=== PATIENT | male | born 1965 | race Caucasian/White ===

== ENCOUNTER 2019-02-20 19:47 | Emergency (ER) | payer BC, OTHER ==
[2019-02-20 20:25] VITALS: RESP 18
[2019-02-20] MEDS ORDERED: AMOXIC-POT CLAV 875MG STARTER 2 EACH TABLET PO STA (20:27)
[2019-02-20] MEDS ORDERED: AMOXIC-POT CLAV 875-125MG 1 EACH TAB PO STA (20:27)
[2019-02-20] MEDS ORDERED: cefTRIAXone 1,000 MG VIAL (IM USE) IM STA (20:37)
[2019-02-20] MEDS ORDERED: FLUTICASONE 50MCG/SPRAY NASAL 16GM EA NOSTRIL PRN (20:37)
--- NOTE | 2019-02-20 20:56 | ED ---
General Adult HPI - General Source: patient, RN notes reviewed, old records reviewed Mode of arrival: ambulatory Limitations: no limitations <Tyler Yañez - Last Filed: 02/21/19 00:54> <Iram Michael - Last Filed: 02/22/19 06:06> - General Chief complaint: Recheck/Abnormal Lab/Rx Stated complaint: Sinus Infection Time Seen by Provider: 02/20/19 20:27 - History of Present Illness Initial comments: 53-year-old male patient past medical history of sarcoidosis presents to ED with chief complaint of significant infection of waxing and waning for 3 months. Patient reports that over the last 3 months he has had describes as ALLERGIES, sinus congestion, maxillary sinus pressure, waxing and waning headaches. Patient states that he has had 2 courses of antibiotics including most recently Augmentin approximately one month ago. Patient states that he has had waxing and waning headaches including currently which she has headache and his right hemisphere behind his right eye. Patient denies worst headache of life. Patient denies thunderclap onset. Patient denies any loss of consciousness. Denies any neck stiffness or neck pain. Denies any chest pain shortness breath or abdominal pain. Systemic: Pt denies fatigue, fever/chills, rash. Pt denies weakness, night sweats, weight loss. Neuro: Pt denies headache, visual disturbances, syncope or pre-syncope. HEENT: Pt denies ocular discharge or irritation, otalgia, rhinorrhea, pharyngitis or notable lymphadenopathy. Cardiopulmonary: Pt denies chest pain, SOB, heart palpitations, dyspnea on exertion. Abdominal/GI: Pt denies abdominal pain, n/v/d. : Pt denies dysuria, burning w/ urination, frequency/urgency. Denies new onset urinary or bowel incontinence. MSK: Pt denies myalgia, loss of strength or function in extremities. Neuro: Pt denies new onset weakness, paresthesias. (Tyler Yañez) - Related Data Previous Rx's Medication Instructions Recorded Doxycycline [Vibramycin] 100 mg PO BID #7 cap 02/20/19 Allergies Allergy/AdvReac Type Severity Reaction Status Date / Time aspirin Allergy Rash/Hives Verified 02/20/19 20:25 Review of Systems ROS Other: All systems not noted in ROS Statement are negative. <Tyler Yañez - Last Filed: 02/21/19 00:54> ROS Other: All systems not noted in ROS Statement are negative. <Iram Michael Nuria - Last Filed: 02/22/19 06:06> ROS Statement: Those systems with pertinent positive or pertinent negative responses have been documented in the HPI. Past Medical History Additional Past Medical History / Comment(s): sacroidosis History of Any Multi-Drug Resistant Organisms: None Reported Additional Past Surgical History / Comment(s): lung biopsy Past Psychological History: No Psychological Hx Reported Smoking Status: Never smoker Past Alcohol Use History: Occasional Past Drug Use History: None Reported <Tyler Yañez - Last Filed: 02/21/19 00:54> General Exam Limitations: no limitations <Tyler Yañez - Last Filed: 02/21/19 00:54> - General Exam Comments Initial Comments: Constitutional: NAD, AOX3, Pt has pleasant affect. HEENT: NC/AT, trachea midline, neck supple, no lymphadenopathy. Posterior pharynx non erythematous, without exudates. External ears appear normal, without discharge. TM pale bauer bilaterally. Mucous membranes moist. Eyes PERRLA, EOM intact. There is no scleral icterus. No pallor noted. Reproducible sinus pressure maxillary. Cardiopulmonary: RRR, no murmurs, rubs or gallops, no JVD noted. Lungs CTAB in anterior and posterior caballero. No peripheral edema. Abdominal exam: Abdomen soft and non-distended. Abdomen non-tender to palpation in all 4 quadrants. Bowel sounds active in LLQ. No hepatosplenomegaly. No ecchymosis Neuro: CN II-XII intact. No nuchal rigidity. No raccon eyes, no mccormack sign, no hemotympanum. No cervical spinal tenderness. MSK: No posterior calf tenderness bilaterally, homans sign negative bilaterally. Posterior tibialis and radial pulse +2 bilaterally. Sensation intact in upper and lower extremities. Full active ROM in upper and lower extremities, 5/5 stregnth. (Tyler Yañez) Course Vital Signs 02/20/19 02/20/19 20:22 22:13 Temperature 100.8 F H 99.0 F Pulse Rate 97 89 Respiratory 18 18 Rate Blood Pressure 122/80 139/82 O2 Sat by Pulse 97 100 Oximetry Medical Decision Making <Tyler Yañez - Last Filed: 02/21/19 00:54> <Iram Michael - Last Filed: 02/22/19 06:06> - Medical Decision Making 53-year-old male patient past medical history of sarcoidosis presents to ED with chief complaint of significant infection of waxing and waning for 3 months. Patient reports that over the last 3 months he has had describes as ALLERGIES, sinus congestion, maxillary sinus pressure, waxing and waning headaches. Patient states that he has had 2 courses of antibiotics including most recently Augmentin approximately one month ago. Patient states that he has had waxing and waning headaches including currently which she has headache and his right hemisphere behind his right eye. Patient denies worst headache of life. Patient denies thunderclap onset. Patient denies any loss of consciousness. Denies any neck stiffness or neck pain. Denies any chest pain shortness breath or abdominal pain. Patient also has additionally displayed fever 100.8. Patient administered antipyretic. Vital signs stable at discharge. Physical exam displayed: Reproducible sinus pressure maxillary. CT facial bones displayed mild chronic paranasal sinus disease involving the bilateral ethmoid air cells as well as the right-sided frontal maxillary sinuses. CT brain did not acute process. Patient placed on doxycycline. As well as Flonase. Patient also has joint gram ceftriaxone ED. Patient discharged with outpatient follow- up with ENT tomorrow. Patient returned ER physician or symptoms. Case discussed with Dr. Michael. (Tyler Yañez) I was available for consultation in the emergency department. The history and physical exam were done by the midlevel provider. I was consulted for this patient's care. I reviewed the case with the midlevel provider and based on their presentation of the patient, I agree with the assessment, medical decision making and plan of care as documented. Chart was dictated using [employer] dictation software. Attempts were made to correct any dictation errors however some typographical errors may persist. (Iram Michael) Disposition Is patient prescribed a controlled substance at d/c from ED?: No <Tyler Yañez - Last Filed: 02/21/19 00:54> <Iram Michael - Last Filed: 02/22/19 06:06> Clinical Impression: Sinusitis Disposition: HOME SELF-CARE Condition: Stable Instructions (If sedation given, give patient instructions): Sinusitis (ED) Additional Instructions: Patient to adhere to previously discussed treatment plan and will take medication(s) as directed. Patient to follow up with PCP in 1-2 days. Patient to return to ED if symptoms do not improve. Follow-up with primary care provider and ENT in 1-2 days. Return to ER if condition worsens. Prescriptions: Doxycycline [Vibramycin] 100 mg PO BID #7 cap Referrals: None,Stated [Primary Care Provider] - 1-2 days Anival Taylor MD [STAFF PHYSICIAN] - 1-2 days
--- NOTE | 2019-02-20 21:47 | CT ---
EXAMINATION TYPE: CT brain wo con DATE OF EXAM: 02/20/2019 COMPARISON: None HISTORY: 53-year-old male with pain TECHNIQUE: Examination was done in axial plane without intravenous contrast. Coronal and sagittal r econstructions performed. CT DLP: 1156.6 mGycm Automated exposure control for dose reduction was used. FINDINGS: There is no evidence of acute intracranial hemorrhage, acute ischemic changes, mass, mass-effect, or extra-axial fluid collection. There is no effacement of cerebral sulci or basal subarachnoid cister ns. There is no hydrocephalus. There is no midline shift. Lund-white matter distinction is preserv ed. Mastoid air cells well pneumatized. Facial bones reported separately. IMPRESSION: No acute intracranial abnormality seen. Facial bones reported separately.
--- NOTE | 2019-02-20 21:49 | CT ---
EXAMINATION TYPE: CT facial bones wo con DATE OF EXAM: 02/20/2019 COMPARISON: None HISTORY: 53-year-old male with pain, sinus infection for months TECHNIQUE: Contiguous axial scanning of the facial bones without IV contrast. Coronal reconstructions performed. CT DLP: 1156.6 mGycm Automated exposure control for dose reduction was used. FINDINGS: Rightward nasal septal deviation. Scattered mild mucosal thickening right frontal sinus and ethmoid a ir cells. Also along the roof of the right maxillary sinus. Osteomeatal complexes are patent. No air-fluid levels. Orbits and globes appear intact. No acute facial bone fracture seen. IMPRESSION: MILD CHRONIC PARANASAL SINUS DISEASE INVOLVING THE BILATERAL ETHMOID AIR CELLS WELL THE RIGHT-S IDED FRONTAL AND MAXILLARY SINUSES.
[2019-02-20] MEDS ORDERED: ACETAMINOPHEN TAB 325 MG TAB PO STA (21:51)
[2019-02-20] MEDS ORDERED: DOXYCYCLINE 100 MG CAP PO STA (21:51)
[2019-02-20 22:14] VITALS: BP 139/82; PULSE 89; TEMP 99
== END 2019-02-20 22:13 | disposition home or self-care (01) ==
LOC: EC 19:47
DX: J32.9 Chronic sinusitis, unspecified (principal); Z88.6 Allergy status to analgesic agent
CPT/HCPCS: 70486; 70450; 99284; 96372; J0696

== ENCOUNTER 2020-07-05 09:26 | Inpatient (IN) | payer BC ==
[2020-07-05] MEDS ORDERED: ALBUTEROL HFA INHALER INHALATION STA (09:49)
[2020-07-05] MEDS ORDERED: ACETAMINOPHEN TAB 500 MG TAB PO STA (09:49)
--- NOTE | 2020-07-05 09:52 | ED ---
General Adult HPI - General Chief complaint: Shortness of Breath Stated complaint: Cough, SOB, possible covid Time Seen by Provider: 07/05/20 09:30 Source: patient, EMS, RN notes reviewed, old records reviewed Mode of arrival: EMS Limitations: no limitations - History of Present Illness Initial comments: This is a 55-year-old male who presents emergency Department complaining that he has had a fever for 10 days. Patient states she had "test last week but no one is got Bactrim on the results. Patient states she has had a cough and he has been very short of breath. Patient states he continues to spike a fever. Patient states his symptoms have persisted or shortness of breath is gotten worse. Patient denies any chest pain or palpitations. Patient denies any headache. Patient denies any numbness or weakness. Patient denies any vomiting or diarrhea. Patient states he just overall feels much more tired. - Related Data Home Medications Medication Instructions Recorded Confirmed No Known Home Medications 07/05/20 07/05/20 Allergies Allergy/AdvReac Type Severity Reaction Status Date / Time aspirin Allergy Rash/Hives Verified 07/05/20 10:00 Review of Systems ROS Statement: Those systems with pertinent positive or pertinent negative responses have been documented in the HPI. ROS Other: All systems not noted in ROS Statement are negative. Past Medical History Additional Past Medical History / Comment(s): sacroidosis History of Any Multi-Drug Resistant Organisms: None Reported Additional Past Surgical History / Comment(s): lung biopsy Past Psychological History: No Psychological Hx Reported Smoking Status: Current some day smoker Past Alcohol Use History: Occasional Past Drug Use History: None Reported General Exam - General Exam Comments Initial Comments: GENERAL: Patient is well-developed and well-nourished. Patient is nontoxic and well- hydrated and is in mild distress. ENT: Neck is soft and supple. No significant lymphadenopathy is noted. Oropharynx is clear. Moist mucous membranes. Neck has full range of motion without eliciting any pain. EYES: The sclera were anicteric and conjunctiva were pink and moist. Extraocular movements were intact and pupils were equal round and reactive to light. Eyelids were unremarkable. PULMONARY: Unlabored respirations. Good breath sounds bilaterally. Patient has crackles bilaterally worse on the left than the right. Patient's pulse ox was 84 on room air. CARDIOVASCULAR: There is a regular rate and rhythm without any murmurs gallops or rubs. ABDOMEN: Soft and nontender with normal bowel sounds. SKIN: Skin is clear with no lesions or rashes and otherwise unremarkable. NEUROLOGIC: Patient is alert and oriented x3. Cranial nerves II through XII are grossly intact. Motor and sensory are also intact. Normal speech, volume and content. Symmetrical smile. MUSCULOSKELETAL: Normal extremities with adequate strength and full range of motion. LYMPHATICS: No significant lymphadenopathy is noted PSYCHIATRIC: Normal psychiatric evaluation. Limitations: no limitations Course Vital Signs 07/05/20 07/05/20 09:32 09:37 Temperature 102.9 F H Pulse Rate 84 Respiratory 18 20 Rate Blood Pressure 133/71 O2 Sat by Pulse 96 Oximetry Medical Decision Making - Medical Decision Making EKG shows normal sinus rhythm at 90 bpm HI interval 130 QRS is 84 Q-T intervals 356 QTC is 435. Patient's EKG shows no ST segment depression or depression. Patient does have Q waves in leads 3 and aVF. Chest shows an infiltrative pattern consistent with COVID. Patient does help COVID positive test. - Lab Data Result diagrams: 07/05/20 10:05 07/05/20 10:05 Lab Results 07/05/20 07/05/20 07/05/20 Range/Units 10:05 10:05 10:05 WBC 5.1 (3.8-10.6) k/uL RBC 5.04 (4.30-5.90) m/uL Hgb 15.4 (13.0-17.5) gm/dL Hct 43.7 (39.0-53.0) % MCV 86.8 (80.0-100.0) fL MCH 30.6 (25.0-35.0) pg MCHC 35.3 (31.0-37.0) g/dL RDW 11.9 (11.5-15.5) % Plt Count 212 (150-450) k/uL MPV 7.0 Neutrophils % 81 % Lymphocytes % 9 % Monocytes % 6 % Eosinophils % 1 % Basophils % 2 % Neutrophils # 4.1 (1.3-7.7) k/uL Lymphocytes # 0.5 L (1.0-4.8) k/uL Monocytes # 0.3 (0-1.0) k/uL Eosinophils # 0.1 (0-0.7) k/uL Basophils # 0.1 (0-0.2) k/uL Manual Slide Review Performed RBC Morphology Normal Sodium 132 L (137-145) mmol/L Potassium 3.9 (3.5-5.1) mmol/L Chloride 98 (98-107) mmol/L Carbon Dioxide 23 (22-30) mmol/L Anion Gap 11 mmol/L BUN 16 (9-20) mg/dL Creatinine 0.93 (0.66-1.25) mg/dL Est GFR (CKD-EPI)AfAm >90 (>60 ml/min/1.73 sqM) Est GFR (CKD-EPI)NonAf >90 (>60 ml/min/1.73 sqM) Glucose 120 H (74-99) mg/dL Plasma Lactic Acid Wilder 1.7 (0.7-2.0) mmol/L Calcium 8.8 (8.4-10.2) mg/dL Magnesium 2.0 (1.6-2.3) mg/dL Total Bilirubin 0.5 (0.2-1.3) mg/dL AST 51 (17-59) U/L ALT 45 (4-49) U/L Alkaline Phosphatase 55 (38-126) U/L Lactate Dehydrogenase 1018 H (313-618) U/L C-Reactive Protein 63.2 H (<10.0) mg/L Total Protein 7.0 (6.3-8.2) g/dL Albumin 4.1 (3.5-5.0) g/dL Coronavirus (PCR) (Not Detectd) 07/05/20 Range/Units 10:05 WBC (3.8-10.6) k/uL RBC (4.30-5.90) m/uL Hgb (13.0-17.5) gm/dL Hct (39.0-53.0) % MCV (80.0-100.0) fL MCH (25.0-35.0) pg MCHC (31.0-37.0) g/dL RDW (11.5-15.5) % Plt Count (150-450) k/uL MPV Neutrophils % % Lymphocytes % % Monocytes % % Eosinophils % % Basophils % % Neutrophils # (1.3-7.7) k/uL Lymphocytes # (1.0-4.8) k/uL Monocytes # (0-1.0) k/uL Eosinophils # (0-0.7) k/uL Basophils # (0-0.2) k/uL Manual Slide Review RBC Morphology Sodium (137-145) mmol/L Potassium (3.5-5.1) mmol/L Chloride (98-107) mmol/L Carbon Dioxide (22-30) mmol/L Anion Gap mmol/L BUN (9-20) mg/dL Creatinine (0.66-1.25) mg/dL Est GFR (CKD-EPI)AfAm (>60 ml/min/1.73 sqM) Est GFR (CKD-EPI)NonAf (>60 ml/min/1.73 sqM) Glucose (74-99) mg/dL Plasma Lactic Acid Wilder (0.7-2.0) mmol/L Calcium (8.4-10.2) mg/dL Magnesium (1.6-2.3) mg/dL Total Bilirubin (0.2-1.3) mg/dL AST (17-59) U/L ALT (4-49) U/L Alkaline Phosphatase (38-126) U/L Lactate Dehydrogenase (313-618) U/L C-Reactive Protein (<10.0) mg/L Total Protein (6.3-8.2) g/dL Albumin (3.5-5.0) g/dL Coronavirus (PCR) Detected A (Not Detectd) Disposition Clinical Impression: Pneumonia due to COVID-19 virus Disposition: ADMITTED IP TO THIS [facility] Time of Disposition: 10:50
[2020-07-05 10:19] LABS: Basophils # (A) 0.1 k/uL (0-0.2); Basophils % (A) 2 %; Eosinophils # (A) 0.1 k/uL (0-0.7); Eosinophils % (A) 1 %; HCT 43.7 % (39.0-53.0); HGB 15.4 gm/dL (13.0-17.5); Lymphocytes # (A) 0.5 k/uL (1.0-4.8); Lymphocytes % (A) 9 %; MCH 30.6 pg (25.0-35.0); MCHC 35.3 g/dL (31.0-37.0); MCV 86.8 fL (80.0-100.0); Monocytes # (A) 0.3 k/uL (0-1.0); Monocytes % (A) 6 %; Neutrophils # (A) 4.1 k/uL (1.3-7.7); Neutrophils % (A) 81 %; Platelet Count 212 k/uL (150-450); RBC 5.04 m/uL (4.30-5.90); RDW 11.9 % (11.5-15.5); WBC 5.1 k/uL (3.8-10.6)
--- NOTE | 2020-07-05 10:29 | XR ---
EXAMINATION TYPE: XR chest 1V portable DATE OF EXAM: 07/05/2020 COMPARISON: NONE HISTORY: Fever and cough. Suspected covid 19 pneumonia. TECHNIQUE: Single AP portable frontal upright view of the chest is obtained. FINDINGS: There is low lung volumes with slightly elevated right hemidiaphragm. There is right uppe r and basilar opacities. There is left mid to lower lung opacities greater in the periphery. No pleur al effusion or pneumothorax seen bilaterally. The cardiac silhouette size is upper limits of normal i n size. The osseous structures are intact. IMPRESSION: Low lung volumes with bilateral multifocal acute infiltrates correlates with clinical ballesteros spicion for covid-19 infection.
[2020-07-05 10:35] LABS: Potassium 3.9 mmol/L (3.5-5.1)
[2020-07-05 10:38] LABS: ALT 45 U/L (4-49); AST 51 U/L (17-59); African American GFR (CKD) >90 (>60 ml/min/1.73 sqM); Albumin 4.1 g/dL (3.5-5.0); Alkaline Phosphatase 55 U/L (38-126); Anion Gap 11 mmol/L; Blood Urea Nitrogen 16 mg/dL (9-20); C Reactive Protein 63.2 mg/L (<10.0); Calcium 8.8 mg/dL (8.4-10.2); Carbon Dioxide 23 mmol/L (22-30); Chloride 98 mmol/L (98-107); Glucose 120 mg/dL (74-99); LDH 1018 U/L (313-618); Non-African American GFR(CKD) >90 (>60 ml/min/1.73 sqM); Sodium 132 mmol/L (137-145); Total Bilirubin 0.5 mg/dL (0.2-1.3)
[2020-07-05 10:43] LABS: D-Dimer 1.14 mg/L FEU (<0.60); Partial Thromboplastin Time 25.8 sec (22.0-30.0); Prothrombin Time 9.9 sec (9.0-12.0)
[2020-07-05] MEDS ORDERED: SODIUM CHLORIDE 0.9% 1,000 ML IV ONE (10:51)
[2020-07-05] MEDS ORDERED: dexAMETHasone 4 MG TAB PO STA (10:52)
--- NOTE | 2020-07-05 14:35 | P.HPIM ---
History of Present Illness This is a pleasant 55 years old male with past medical history of sarcoidosis who presents because of 10 days history of fever. Associated with cough and dyspnea. Denies chest pain, no headache. no diarrhea, no urinary complaint No headache or weakness or numbness. he's been febrile at 102.9 here in the emergency room He is saturating 96% on 10 L oxygen via nonrebreather. Lap showing mild for moises 0.5K asked of CBC is unremarkable, d-dimer is slightly elevated at 1.1, sodium 132, and potassium was normal 3.9, creatinine normal 0.9, as per lactic acid is 1.7. Magnesium is 2.0, liver enzymes AST and ALT not elevated at 151 and 45 respectively. Elevated lactate dehydrogenase at 1018 and C-reactive protein at 63.2. covid is in the emergency room patient was given dexamethasone one-time dose and normal saline at 75 L/h detected in his nasal swab EKG showed normal sinus rhythm at 90 bpm, no significant ST T changes, QTC 435 Chest x-ray reviewed by myself showing bilateral his anus and infiltrates, reports patient has bilateral multifocal acute infiltrates correlates with the clinical suspicious for Covid 19 infection Review of Systems CONSTITUTIONAL: No fever, no malaise, no fatigue. HEENT: No recent visual problems or hearing problems. Denied any sore throat. CARDIOVASCULAR: No orthopnea, PND, no palpitations, no syncope. -PULMONARY: As above GASTROINTESTINAL: No diarrhea, no nausea, no vomiting, no abdominal pain. Normoactive bowel sounds. NEUROLOGICAL: No headaches, no weakness, no numbness. HEMATOLOGICAL: Denies any bleeding or petechiae. GENITOURINARY: Denies any burning micturition, frequency, or urgency. MUSCULOSKELETAL/RHEUMATOLOGICAL: Denies any joint pain, swelling, or any muscle pain. ENDOCRINE: Denies any polyuria or polydipsia. Past Medical History Additional Past Medical History / Comment(s): sacroidosis History of Any Multi-Drug Resistant Organisms: None Reported Additional Past Surgical History / Comment(s): lung biopsy Past Psychological History: No Psychological Hx Reported Smoking Status: Never smoker Past Alcohol Use History: Occasional Past Drug Use History: None Reported - Past Family History Father Family Medical History: Cancer Medications and Allergies Home Medications Medication Instructions Recorded Confirmed Type No Known Home Medications 07/05/20 07/05/20 History Allergies Allergy/AdvReac Type Severity Reaction Status Date / Time aspirin Allergy Rash/Hives Verified 07/05/20 10:00 Physical Exam Vitals: Vital Signs Temp Pulse Pulse Resp BP BP Pulse Ox 07/05/20 13:28 100.5 F H 73 16 127/74 94 L 07/05/20 11:32 99.2 F 84 20 133/71 96 07/05/20 11:00 99.2 F 84 20 133/71 96 07/05/20 10:36 18 95 07/05/20 09:37 20 07/05/20 09:32 102.9 F H 84 18 133/71 96 Intake and Output 07/04/20 07/05/20 07/05/20 22:59 06:59 14:59 Other: Weight 99.79 kg GENERAL: The patient is alert and oriented x3, not in any acute distress. Well developed, well nourished. HEENT: Pupils are round and equally reacting to light. EOMI. No scleral icterus. No conjunctival pallor. Normocephalic, atraumatic. No pharyngeal erythema. No thyromegaly. CARDIOVASCULAR: S1 and S2 present. No murmurs, rubs, or gallops. -PULMONARY: Chest is clear to auscultation, b/l crepitation ABDOMEN: Soft, nontender, nondistended, normoactive bowel sounds. No palpable organomegaly. MUSCULOSKELETAL: No joint swelling or deformity. EXTREMITIES: No cyanosis, clubbing, or pedal edema. NEUROLOGICAL: Gross neurological examination did not reveal any focal deficits. SKIN: No rashes. No petechiae Results CBC & Chem 7: 07/05/20 10:05 07/05/20 10:05 Labs: Abnormal Lab Results - Last 24 Hours (Table) 07/05/20 07/05/20 07/05/20 Range/Units 10:05 10:05 10:05 Lymphocytes # 0.5 L (1.0-4.8) k/uL D-Dimer 1.14 H (<0.60) mg/L FEU Sodium 132 L (137-145) mmol/L Glucose 120 H (74-99) mg/dL Lactate Dehydrogenase 1018 H (313-618) U/L C-Reactive Protein 63.2 H (<10.0) mg/L Coronavirus (PCR) (Not Detectd) 07/05/20 Range/Units 10:05 Lymphocytes # (1.0-4.8) k/uL D-Dimer (<0.60) mg/L FEU Sodium (137-145) mmol/L Glucose (74-99) mg/dL Lactate Dehydrogenase (313-618) U/L C-Reactive Protein (<10.0) mg/L Coronavirus (PCR) Detected A (Not Detectd) Thrombosis Risk Factor Assmnt - Choose All That Apply Each Factor Represents 1 point: Age 41-60 years, Serious lung disease incl. pneumonia (< 1month) Thrombosis Risk Factor Assessment Total Risk Factor Score: 2 Thrombosis Risk Factor Assessment Level: Low Risk Assessment and Plan Assessment: Bilateral Covid pneumonia Acute hypoxic respiratory failure Increased inflammatory markers History of sarcoidosis Plan: This is a pleasant 55 years old male who presents with Covid pneumonia. Continue with oxygen, continue with dexamethasone, vitamin C and zinc sulfate. I will discontinue the IV fluid Labs and medication were reviewed.. Continue same treatment. Continue with symptomatic treatment. Resume home medication. Monitor lytes and vitals. DVT and GI prophylaxis. Further recommendations depends on the clinical course of the patient DVT prophylaxis: Subcutaneous Lovenox GI Prophylaxis: Protonix Prognosis is guarded
[2020-07-05] MEDS ORDERED: REMDESIVIR (EUA) 200 MG in SODIUM CHLORIDE 0.9% 250 ML IVPB ONE (17:00)
[2020-07-05] MEDS: ENOXAPARIN 40 MG/0.4 ML SYRINGE SQ SCH (17:24)
--- NOTE | 2020-07-05 18:19 | CONS ---
CONSULTATION PULMONARY/CRITICAL CARE CONSULTATION: REASON FOR CONSULTATION: COVID-19 pneumonia. This is a 55-year-old gentleman who is relatively healthy. He states he has not been feeling well for about a week to 10 days. He went to his doctor out in [place]. I believe it was Dr. Wan. He apparently requested a COVID test and results are not yet back. Anyway, he comes in with complaints of cough, chest congestion, fever, and shortness of breath. His symptoms have gotten worse. His temperature was up to 105 degrees he says. Denies any nausea, vomiting or diarrhea. Denies any abdominal pain. Denies any genitourinary complaints. He is having typical muscle aches and joint aches. HOME MEDICATIONS: None. ALLERGIES: ASPIRIN. MEDICAL HISTORY: Positive for inactive or quiescent sarcoidosis. SURGICAL HISTORY: Positive for previous lung biopsy and a diagnosis of sarcoid. SOCIAL HISTORY: Negative tobacco use. He does drink occasionally. Denies any illicit drug use. FAMILY HISTORY: Noncontributory. REVIEW OF SYSTEMS: CONSTITUTIONAL: Fever, muscle aches, joint aches. NEUROLOGIC: Negative. HEENT: Negative. CARDIOVASCULAR: Negative. PULMONARY: Shortness of breath, chest congestion, cough. GI: Negative. : Negative. RHEUMATOLOGIC: Negative. IMMUNOLOGIC: Negative. ENDOCRINOLOGIC: Negative. DERMATOLOGIC: Negative. PHYSICAL EXAMINATION: VITAL SIGNS: Current vital signs are reviewed. Temperature is 100.5, heart rate 73, respiratory rate 16, blood pressure 127/74, mean 91, and saturations are 94% on a non- rebreather mask. Appears mildly tachypneic. HEENT: Examination is grossly unremarkable. Non-rebreather mask in place. NECK: Supple, full range of motion. No adenopathy. Neck veins are flat. CARDIOVASCULAR: Examination reveals regular rhythm and rate. Heart rate 73. S1, S2 normal. No S3, S4, or murmur. LUNGS: Reveal coarse rhonchi. ABDOMEN: Soft. EXTREMITIES: Intact. No cyanosis, clubbing, or edema noted. SKIN: Without rash. NEUROLOGIC: Examination is nonfocal. LABS: Reviewed. White count 5.1, hemoglobin 15.4, hematocrit 43.7, platelet count normal, PT/INR normal, PTT 25.8. D-dimer 1.14. Sodium 132, potassium 3.9, chloride 98, CO2 of 13. Anion gap is 11. BUN and creatinine were 16 and 0.93, glucose 120, ferritin 3732, LDH 1018, and C-reactive protein 63.2. COVID test was positive by PCR. IMAGING: Chest x-ray shows diffuse bilateral infiltrates. CURRENT MEDICATIONS: Reviewed. He is currently on vitamin C, Decadron, Lovenox, Protonix, Remdesivir started today, and zinc. ASSESSMENT: 1. COVID-19 pneumonia/pneumonitis. 2. Hypoxemia secondary to #1. 3. Inactive or quiescent sarcoidosis. PLAN: The patient will be started on Remdesivir. In addition, he is currently on Decadron. He will get vitamin C, albuterol inhaler, as well as zinc and vitamin D3. We will start him on melatonin and Pepcid as well. No additional recommendations are made. Prognosis is guarded. MMODL / IJN: [id number] /
[2020-07-05] MEDS: ZINC SULFATE 220 MG CAP PO SCH (19:03)
[2020-07-05] MEDS: MELATONIN 5 MG TABLET PO SCH (20:14)
[2020-07-05] MEDS: ASCORBIC ACID 500 MG TAB PO SCH (20:14)
[2020-07-05] MEDS: ACETAMINOPHEN TAB 325 MG TAB PO PRN (20:14)
[2020-07-05] MEDS: ALBUTEROL HFA INHALER INHALATION SCH (20:29)
[2020-07-05] MEDS ORDERED: dexAMETHasone 4 MG TAB PO SCH (21:00)
[2020-07-06] MEDS ORDERED: PANTOPRAZOLE 40 MG/10 ML VIAL IVP SCH (09:00)
[2020-07-06] MEDS: ASCORBIC ACID 500 MG TAB PO SCH ×2 (09:03→21:50)
[2020-07-06] MEDS: ENOXAPARIN 40 MG/0.4 ML SYRINGE SQ SCH (09:03)
[2020-07-06] MEDS: CHOLECALCIFEROL 400 UNIT TAB PO SCH (09:03)
[2020-07-06] MEDS: dexAMETHasone 2 MG TAB PO SCH (09:03)
[2020-07-06] MEDS: ZINC SULFATE 220 MG CAP PO SCH (09:04)
[2020-07-06] MEDS: ALBUTEROL HFA INHALER INHALATION SCH ×4 (09:05→20:40)
[2020-07-06] MEDS: ACETAMINOPHEN TAB 325 MG TAB PO PRN (09:13)
--- NOTE | 2020-07-06 12:48 | P.PN ---
Subjective patient is a pleasant 55-year-old the male admitted for with 19 pneumonia and respiratory failure secondary to cord 90 pneumonia and patient is presently on3 L of oxygen saturating at 91% patient feels marginally better patient still has fevers and elevated the inflammatory markers. Constitutional: Denied any fatigue denied any fever. Cardio vascular: denied any chest pain, palpitations Gastrointestinal denied any nausea vomiting Pulmonary: short of breath he believes it may be a bit better today Neurologic denied any new focal deficits All inpatient medications were reviewed and appropriate changes in these medications as dictated in the interval history and assessment and plan. Objective - Vital Signs Vital signs: Vital Signs Temp 100.1 F H 07/06/20 08:00 Pulse 86 07/06/20 08:00 Resp 18 07/06/20 03:11 BP 121/69 07/06/20 08:00 Pulse Ox 91 L 07/06/20 09:07 Intake & Output 07/05/20 07/06/20 07/06/20 18:59 06:59 18:59 Intake Total 400 120 Balance 400 120 Weight 99.79 kg 98.7 kg Intake: Intake, IV Titration 400 Amount Remdesivir (Eua) 200 mg 250 In Sodium Chloride 0.9% 250 ml @ 250 mls/hr IVPB ONCE ONE Rx#:[id number] Sodium Chloride 0.9% 1, 150 000 ml @ 75 mls/hr IV . [id number] ONE Rx#:[id number] Oral 120 Other: # Voids 1 - Exam PHYSICAL EXAMINATION: GENERAL: The patient is alert and oriented x3, not in any acute distress. Well developed, well nourished. HEENT: Pupils are round and equally reacting to light. EOMI. No scleral icterus. No conjunctival pallor. Normocephalic, atraumatic. No pharyngeal erythema. No thyromegaly. CARDIOVASCULAR: S1 and S2 present. No murmurs, rubs, or gallops. PULMONARY: Chest is clear to auscultation, no wheezing or crackles. ABDOMEN: Soft, nontender, nondistended, normoactive bowel sounds. No palpable organomegaly. MUSCULOSKELETAL: No joint swelling or deformity. EXTREMITIES: No cyanosis, clubbing, or pedal edema. NEUROLOGICAL: Gross neurological examination did not reveal any focal deficits. SKIN: No rashes. Note: Because of COVID 19 isolation, some of the history and physical exam findings are indirect and obtained from nursing staff, and other physician examinations to avoid unnecessary contact with the patient. - Labs CBC & Chem 7: 07/05/20 10:05 07/05/20 10:05 Labs: Abnormal Lab Results - Last 24 Hours (Table) 07/05/20 Range/Units 10:05 Ferritin 3732.0 H (22.0-322.0) ng/mL Microbiology - Last 24 Hours (Table) 07/05/20 10:05 Blood Culture - Preliminary Blood No Growth after 24 hours Assessment and Plan Plan: -acute hypoxic respiratory failure: Secondary to Covid 19 pneumonia patient is presently ondexamethasone, vitamin C and zinc sulfate along with Remdesivir. -hypervolemic hyponatremia will recheck the sodium is still low patient was started on IV fluids for now patient will continue with the aggressive by mouth hydration -DVT prophylaxis with Lovenox and GI prophylaxis with Pepcid -history of sarcoidosis
--- NOTE | 2020-07-06 14:51 | P.PN ---
Subjective Progress Note Date: 07/06/20 Principal diagnosis: Covid 19 pneumonia This is a very pleasant 55-year-old gentleman who was admitted yesterday with [place] 19 pneumonia. He had presented with increasing shortness of breath cough congestion fever. Stating his temperature was up to 105. He was having muscle aches and joint pain as well. No nausea vomiting or diarrhea. No abdominal pain. He is seen again today in follow-up. He is awake and alert in no acute distress. He is still requiring 15 L partial rebreather mask to maintain O2 saturation in the low 90s. Febrile with a temperature of 100.1. He modynamically stable. This is day #2 of Remdesivir. He is continued on dexamethasone, Lovenox, zinc, vitamin C, vitamin D, melatonin, Pepcid. Objective - Vital Signs Vital signs: Vital Signs Temp 100.1 F H 07/06/20 08:00 Pulse 86 07/06/20 08:00 Resp 18 07/06/20 03:11 BP 121/69 07/06/20 08:00 Pulse Ox 91 L 07/06/20 09:07 Intake & Output 07/05/20 07/06/20 07/06/20 18:59 06:59 18:59 Intake Total 400 240 Balance 400 240 Weight 99.79 kg 98.7 kg Intake: Intake, IV Titration 400 Amount Remdesivir (Eua) 200 mg 250 In Sodium Chloride 0.9% 250 ml @ 250 mls/hr IVPB ONCE ONE Rx#:[id number] Sodium Chloride 0.9% 1, 150 000 ml @ 75 mls/hr IV . [id number] ONE Rx#:[id number] Oral 240 Other: # Voids 0 - Exam GENERAL EXAM: Alert, pleasant 55-year-old gentleman on 15 L partial rebreather mask, O2 saturation 81%, fairly comfortable in no apparent distress. HEAD: Normocephalic. EYES: Normal reaction of pupils, equal size. NOSE: Clear with pink turbinates. THROAT: No erythema or exudates. NECK: No masses, no JVD. CHEST: No chest wall deformity. LUNGS: Equal air entry with bilateral scattered rhonchi. CVS: S1 and S2 normal with no audible murmur, regular rhythm. ABDOMEN: No hepatosplenomegaly, normal bowel sounds, no guarding or rigidity. SPINE: No scoliosis or deformity SKIN: No rashes CENTRAL NERVOUS SYSTEM: No focal deficits, tone is normal in all 4 extremities. EXTREMITIES: There is no peripheral edema. No clubbing, no cyanosis. Peripheral pulses are intact. - Labs CBC & Chem 7: 07/05/20 10:05 07/05/20 10:05 Labs: Abnormal Lab Results - Last 24 Hours (Table) 07/05/20 Range/Units 10:05 Ferritin 3732.0 H (22.0-322.0) ng/mL Microbiology - Last 24 Hours (Table) 07/05/20 10:05 Blood Culture - Preliminary Blood No Growth after 24 hours Assessment and Plan Assessment: 1 Acute hypoxemic respiratory failure secondary to acute CoVID 19 pneumonia 2 Febrile illness secondary to above 3 Elevated inflammatory markers secondary to above 4 History of sarcoidosis with previous lung biopsy 5 Chronic tobacco dependence Plan: The patient was seen and evaluated by Dr. Pineda Continue Remdesivir Continue Lovenox, dexamethasone, Pepcid, melatonin, vitamin C, vitamin D, zinc Repeat inflammatory markers in the a.m. Repeat d-dimer in the a.m. Repeat chest x-ray in the a.m. We will continue to follow and make further recommendations based on his clinical status I, the cosigning physician, performed a history & physical examination of the patient. Lungs sounds with bilateral scattered rhonchi. Maintaining good O2 saturations in the 90s on 15 L partial rebreather mask. I discussed the assessment and plan of care with my nurse practitioner, Camille Erickson. I attest to the above note as dictated by her.
[2020-07-06 17:09] LABS: Basophils % (A) 1 %; Eosinophils % (A) 0 %; HCT 42.1 % (39.0-53.0); HGB 14.9 gm/dL (13.0-17.5); Lymphocytes # (A) 0.4 k/uL (1.0-4.8); Lymphocytes % (A) 8 %; MCHC 35.4 g/dL (31.0-37.0); MCV 87.6 fL (80.0-100.0); Mean Platelet Volume 6.7; Monocytes # (A) 0.2 k/uL (0-1.0); Monocytes % (A) 5 %; Neutrophils # (A) 4.5 k/uL (1.3-7.7); Neutrophils % (A) 85 %; Platelet Count 225 k/uL (150-450); RBC 4.81 m/uL (4.30-5.90); RDW 11.9 % (11.5-15.5); WBC 5.3 k/uL (3.8-10.6)
[2020-07-06 17:19] LABS: African American GFR (CKD) >90 (>60 ml/min/1.73 sqM); Anion Gap 9 mmol/L; Blood Urea Nitrogen 17 mg/dL (9-20); Calcium 8.6 mg/dL (8.4-10.2); Carbon Dioxide 24 mmol/L (22-30); Chloride 100 mmol/L (98-107); Glucose 155 mg/dL (74-99); Non-African American GFR(CKD) >90 (>60 ml/min/1.73 sqM); Potassium 3.8 mmol/L (3.5-5.1); Sodium 133 mmol/L (137-145)
[2020-07-06] MEDS: REMDESIVIR (EUA) 100 MG in SODIUM CHLORIDE 0.9% 250 ML IVPB SCH (18:04)
[2020-07-06] MEDS: MELATONIN 5 MG TABLET PO SCH (21:50)
[2020-07-07 08:49] LABS: Basophils % (A) 0 %; Eosinophils % (A) 0 %; Lymphocytes # (A) 0.6 k/uL (1.0-4.8); Lymphocytes % (A) 9 %; MCH 30.9 pg (25.0-35.0); MCHC 34.9 g/dL (31.0-37.0); MCV 88.5 fL (80.0-100.0); Mean Platelet Volume 6.7; Monocytes # (A) 0.4 k/uL (0-1.0); Monocytes % (A) 6 %; Neutrophils # (A) 5.3 k/uL (1.3-7.7); Neutrophils % (A) 81 %; Platelet Count 248 k/uL (150-450); RBC 4.86 m/uL (4.30-5.90); RDW 12.1 % (11.5-15.5); WBC 6.5 k/uL (3.8-10.6)
[2020-07-07] MEDS: ASCORBIC ACID 500 MG TAB PO SCH ×2 (08:50→21:38)
[2020-07-07] MEDS: FAMOTIDINE 20 MG TAB PO SCH (08:50)
--- NOTE | 2020-07-07 08:50 | XR ---
EXAMINATION TYPE: XR chest 1V portable DATE OF EXAM: 07/07/2020 COMPARISON: Prior chest x-ray 07/05/2020 HISTORY: Covid 19 pneumonia TECHNIQUE: Single frontal view of the chest is obtained. FINDINGS: Findings are similar to prior exam. Right hemidiaphragm remains elevated. Heart size is un changed. No evident pneumothorax. Patchy bilateral increased density present within the lungs. IMPRESSION: Stable findings consistent with patient history
[2020-07-07] MEDS: CHOLECALCIFEROL 400 UNIT TAB PO SCH (08:51)
[2020-07-07] MEDS: ZINC SULFATE 220 MG CAP PO SCH (08:51)
[2020-07-07] MEDS: dexAMETHasone 2 MG TAB PO SCH (08:51)
[2020-07-07] MEDS: ENOXAPARIN 40 MG/0.4 ML SYRINGE SQ SCH (08:51)
[2020-07-07] MEDS ORDERED: PANTOPRAZOLE 40 MG TABLET PO SCH (09:00)
[2020-07-07] MEDS: ALBUTEROL HFA INHALER INHALATION SCH ×4 (09:01→20:13)
[2020-07-07 09:31] LABS: African American GFR (CKD) >90 (>60 ml/min/1.73 sqM); Anion Gap 7 mmol/L; Blood Urea Nitrogen 20 mg/dL (9-20); C Reactive Protein 85.6 mg/L (<10.0); Calcium 8.8 mg/dL (8.4-10.2); Carbon Dioxide 28 mmol/L (22-30); Chloride 101 mmol/L (98-107); Glucose 120 mg/dL (74-99); LDH 1091 U/L (313-618); Non-African American GFR(CKD) >90 (>60 ml/min/1.73 sqM); Potassium 3.8 mmol/L (3.5-5.1); Sodium 136 mmol/L (137-145)
--- NOTE | 2020-07-07 13:32 | P.PN ---
Subjective patient is a pleasant 55-year-old the male admitted for with 19 pneumonia and respiratory failure secondary to cord 90 pneumonia and patient is presently on3 L of oxygen saturating at 91% patient feels marginally better patient still has fevers and elevated the inflammatory markers. 07/07/2020 Patient is presently on 15 L of onset was started on Airvo, patient is also receiving plasma, patient is also on Remdesivir Constitutional: Denied any fatigue denied any fever. Cardio vascular: denied any chest pain, palpitations Gastrointestinal denied any nausea vomiting Pulmonary: short of breath he believes it may be a bit better today Neurologic denied any new focal deficits All inpatient medications were reviewed and appropriate changes in these medications as dictated in the interval history and assessment and plan. Objective - Vital Signs Vital signs: Vital Signs Temp 98.3 F 07/07/20 08:00 Pulse 76 07/07/20 08:00 Resp 18 07/07/20 04:00 BP 125/68 07/07/20 08:00 Pulse Ox 85 L 07/07/20 08:00 Intake & Output 07/06/20 07/07/20 07/07/20 18:59 06:59 18:59 Intake Total 480 360 Output Total 300 275 Balance 480 -300 85 Weight 98.5 kg Intake: Oral 480 360 Output: Urine 300 275 Other: # Voids 0 1 - Exam PHYSICAL EXAMINATION: GENERAL: The patient is alert and oriented x3, not in any acute distress. Well developed, well nourished. HEENT: Pupils are round and equally reacting to light. EOMI. No scleral icterus. No conjunctival pallor. Normocephalic, atraumatic. No pharyngeal erythema. No thyromegaly. CARDIOVASCULAR: S1 and S2 present. No murmurs, rubs, or gallops. PULMONARY: Chest is clear to auscultation, no wheezing or crackles. ABDOMEN: Soft, nontender, nondistended, normoactive bowel sounds. No palpable organomegaly. MUSCULOSKELETAL: No joint swelling or deformity. EXTREMITIES: No cyanosis, clubbing, or pedal edema. NEUROLOGICAL: Gross neurological examination did not reveal any focal deficits. SKIN: No rashes. Note: Because of COVID 19 isolation, some of the history and physical exam findings are indirect and obtained from nursing staff, and other physician examinations to avoid unnecessary contact with the patient. - Labs CBC & Chem 7: 07/07/20 08:17 07/07/20 08:17 Labs: Abnormal Lab Results - Last 24 Hours (Table) 07/06/20 07/06/20 07/07/20 Range/Units 16:46 16:46 08:17 Lymphocytes # 0.4 L 0.6 L (1.0-4.8) k/uL D-Dimer (<0.60) mg/L FEU Sodium 133 L (137-145) mmol/L Glucose 155 H (74-99) mg/dL Lactate Dehydrogenase (313-618) U/L C-Reactive Protein (<10.0) mg/L 07/07/20 07/07/20 Range/Units 08:17 08:17 Lymphocytes # (1.0-4.8) k/uL D-Dimer 1.25 H (<0.60) mg/L FEU Sodium 136 L (137-145) mmol/L Glucose 120 H (74-99) mg/dL Lactate Dehydrogenase 1091 H (313-618) U/L C-Reactive Protein 85.6 H (<10.0) mg/L Microbiology - Last 24 Hours (Table) 07/05/20 10:05 Blood Culture - Preliminary Blood No Growth after 48 hours Assessment and Plan Plan: -acute hypoxic respiratory failure: Secondary to Covid 19 pneumonia patient is presently ondexamethasone, vitamin C and zinc sulfate along with Remdesivir along with Plasma -hypervolemic hyponatremia improved with IV fluids -DVT prophylaxis with Lovenox and GI prophylaxis with Pepcid -history of sarcoidosis
--- NOTE | 2020-07-07 15:41 | P.PN ---
Subjective Progress Note Date: 07/07/20 Principal diagnosis: Covid 19 pneumonia This is a very pleasant 55-year-old gentleman who was admitted yesterday with CoVID 19 pneumonia. He had presented with increasing shortness of breath cough congestion fever. Stating his temperature was up to 105. He was having muscle aches and joint pain as well. No nausea vomiting or diarrhea. No abdominal pain. He is seen again today in follow-up. He is awake and alert in no acute distress. He is still requiring 15 L partial rebreather mask to maintain O2 saturation in the low 90s. Febrile with a temperature of 100.1. He modynamically stable. This is day #2 of Remdesivir. He is continued on dexamethasone, Lovenox, zinc, vitamin C, vitamin D, melatonin, Pepcid. The patient is seen today 07/07/2020 in follow-up on the selective care unit. He is still having significant hypoxemia. He did drop to 85% on 15 L high flow nasal cannula. He was converted to the AirVo at 60 L and 94% FiO2. O2 saturation on the 90s. Currently laying in a prone position. This is day 3 of his Remdesivir. He also is to receive convalescent plasma. He is continued on dexamethasone, Lovenox, zinc, vitamin C, vitamin D, melatonin, Pepcid. Chest x- ray continues to show bilateral pneumonia. White count 6.5. Hemoglobin 1415.0. D-dimer 1.25. Sodium 136 Potassium 3.8 creatinine 0.82. LDH 1091. C- reactive protein 85.6. Objective - Vital Signs Vital signs: Vital Signs Temp 98.0 F 07/07/20 12:00 Pulse 74 07/07/20 12:00 Resp 18 07/07/20 04:00 BP 125/68 07/07/20 08:00 Pulse Ox 100 07/07/20 12:00 Intake & Output 07/06/20 07/07/20 07/07/20 18:59 06:59 18:59 Intake Total 480 360 Output Total 300 275 Balance 480 -300 85 Weight 98.5 kg Intake: Oral 480 360 Output: Urine 300 275 Other: # Voids 0 1 2 - Exam GENERAL EXAM: Alert, pleasant 55-year-old gentleman on AirVo 60L at 94% FiO2, fairly comfortable in no apparent distress. HEAD: Normocephalic. EYES: Normal reaction of pupils, equal size. NOSE: Clear with pink turbinates. THROAT: No erythema or exudates. NECK: No masses, no JVD. CHEST: No chest wall deformity. LUNGS: Equal air entry with bilateral scattered rhonchi. CVS: S1 and S2 normal with no audible murmur, regular rhythm. ABDOMEN: No hepatosplenomegaly, normal bowel sounds, no guarding or rigidity. SPINE: No scoliosis or deformity SKIN: No rashes CENTRAL NERVOUS SYSTEM: No focal deficits, tone is normal in all 4 extremities. EXTREMITIES: There is no peripheral edema. No clubbing, no cyanosis. Peripheral pulses are intact. - Labs CBC & Chem 7: 07/07/20 08:17 07/07/20 08:17 Labs: Abnormal Lab Results - Last 24 Hours (Table) 07/06/20 07/06/20 07/07/20 Range/Units 16:46 16:46 08:17 Lymphocytes # 0.4 L 0.6 L (1.0-4.8) k/uL D-Dimer (<0.60) mg/L FEU Sodium 133 L (137-145) mmol/L Glucose 155 H (74-99) mg/dL Lactate Dehydrogenase (313-618) U/L C-Reactive Protein (<10.0) mg/L 07/07/20 07/07/20 Range/Units 08:17 08:17 Lymphocytes # (1.0-4.8) k/uL D-Dimer 1.25 H (<0.60) mg/L FEU Sodium 136 L (137-145) mmol/L Glucose 120 H (74-99) mg/dL Lactate Dehydrogenase 1091 H (313-618) U/L C-Reactive Protein 85.6 H (<10.0) mg/L Microbiology - Last 24 Hours (Table) 07/05/20 10:05 Blood Culture - Preliminary Blood No Growth after 48 hours Assessment and Plan Assessment: 1 Acute hypoxemic respiratory failure secondary to acute CoVID 19 pneumonia 2 Febrile illness secondary to above 3 Elevated inflammatory markers secondary to above 4 History of sarcoidosis with previous lung biopsy 5 Chronic tobacco dependence Plan: The patient was seen and evaluated by Dr. Pineda Chest x-ray and labs reviewed Continue Remdesivir, Lovenox, dexamethasone Receiving convalescent plasma Continue Pepcid, melatonin, vitamin C, vitamin D, zinc Repeat chest x-ray in the a.m. We will continue to follow and make further recommendations based on his clinical status I, the cosigning physician, performed a history & physical examination of the patient. Lungs sounds with bilateral scattered rhonchi. Maintaining good O2 saturations in the 90s on AirVo at 60L and 94% Fio2. I discussed the assessment and plan of care with my nurse practitioner, Camille Erickson. I attest to the above note as dictated by her.
[2020-07-07 18:52] LABS: Ferritin 4945.4 ng/mL (22.0-322.0)
[2020-07-07] MEDS: REMDESIVIR (EUA) 100 MG in SODIUM CHLORIDE 0.9% 250 ML IVPB SCH (20:11)
[2020-07-07] MEDS: MELATONIN 5 MG TABLET PO SCH (21:38)
--- NOTE | 2020-07-08 08:06 | XR ---
EXAMINATION TYPE: XR chest 1V portable DATE OF EXAM: 07/08/2020 HISTORY: Follow-up Covid pneumonia COMPARISON: 03/06/2020 TECHNIQUE: Single view of the chest is submitted. FINDINGS: Demonstrated are scattered senescent parenchymal change. Stable scattered bilateral alveolar and interstitial infiltrates are unchanged compatible with the pr ovided history. The heart is stable. Hilar and mediastinal structures are within normal limits. Degenerative changes are seen of the dorsal spine. IMPRESSION: 1. Stable scattered bilateral alveolar and interstitial infiltrates are unchanged compatible with th e provided history.
[2020-07-08 08:40] LABS: C Reactive Protein 52.1 mg/L (<10.0)
[2020-07-08] MEDS: ASCORBIC ACID 500 MG TAB PO SCH ×2 (09:12→20:34)
[2020-07-08] MEDS: dexAMETHasone 2 MG TAB PO SCH (09:12)
[2020-07-08] MEDS: ENOXAPARIN 40 MG/0.4 ML SYRINGE SQ SCH (09:12)
[2020-07-08] MEDS: CHOLECALCIFEROL 400 UNIT TAB PO SCH (09:12)
[2020-07-08] MEDS: ZINC SULFATE 220 MG CAP PO SCH (09:12)
[2020-07-08] MEDS: FAMOTIDINE 20 MG TAB PO SCH (09:12)
[2020-07-08] MEDS: ALBUTEROL HFA INHALER INHALATION SCH ×4 (09:15→20:11)
--- NOTE | 2020-07-08 12:56 | P.PN ---
Subjective patient is a pleasant 55-year-old the male admitted for with 19 pneumonia and respiratory failure secondary to cord 90 pneumonia and patient is presently on3 L of oxygen saturating at 91% patient feels marginally better patient still has fevers and elevated the inflammatory markers. 07/07/2020 Patient is presently on 15 L of onset was started on Airvo, patient is also receiving plasma, patient is also on Remdesivir 07/08/2020 Patient is presently in 6 L of oxygen although feeling bit better compared to yesterday patient went on BiPAP yesterday. Patient received plasma. Constitutional: Denied any fatigue denied any fever. Cardio vascular: denied any chest pain, palpitations Gastrointestinal denied any nausea vomiting Pulmonary: short of breath he believes it may be a bit better today Neurologic denied any new focal deficits All inpatient medications were reviewed and appropriate changes in these medications as dictated in the interval history and assessment and plan. Objective - Vital Signs Vital signs: Vital Signs Temp 98.1 F 07/08/20 08:00 Pulse 72 07/08/20 08:00 Resp 20 07/08/20 04:00 BP 119/71 07/08/20 08:00 Pulse Ox 94 L 07/08/20 08:00 Intake & Output 07/07/20 07/08/20 07/08/20 18:59 06:59 18:59 Intake Total 750 240 Output Total 275 825 Balance 475 -825 240 Weight 70 kg Intake: Oral 540 240 Blood Product 210 Ffp Pher Conval Covid19 210 Acda 1 Unit [id number] Output: Urine 275 825 Other: # Voids 2 1 - Exam PHYSICAL EXAMINATION: GENERAL: The patient is alert and oriented x3, not in any acute distress. Well developed, well nourished. HEENT: Pupils are round and equally reacting to light. EOMI. No scleral icterus. No conjunctival pallor. Normocephalic, atraumatic. No pharyngeal erythema. No thyromegaly. CARDIOVASCULAR: S1 and S2 present. No murmurs, rubs, or gallops. PULMONARY: Chest is clear to auscultation, no wheezing or crackles. ABDOMEN: Soft, nontender, nondistended, normoactive bowel sounds. No palpable organomegaly. MUSCULOSKELETAL: No joint swelling or deformity. EXTREMITIES: No cyanosis, clubbing, or pedal edema. NEUROLOGICAL: Gross neurological examination did not reveal any focal deficits. SKIN: No rashes. Note: Because of COVID 19 isolation, some of the history and physical exam findings are indirect and obtained from nursing staff, and other physician examinations to avoid unnecessary contact with the patient. - Labs CBC & Chem 7: 07/07/20 08:17 07/07/20 08:17 Labs: Abnormal Lab Results - Last 24 Hours (Table) 07/07/20 07/08/20 07/08/20 Range/Units 08:17 07:44 07:44 D-Dimer 1.02 H (<0.60) mg/L FEU Ferritin 4945.4 H (22.0-322.0) ng/mL Lactate Dehydrogenase 1105 H (313-618) U/L C-Reactive Protein 52.1 H (<10.0) mg/L Microbiology - Last 24 Hours (Table) 07/05/20 10:05 Blood Culture - Preliminary Blood No Growth after 72 hours 07/07/20 08:17 Blood Culture - Preliminary Blood No Growth after 24 hours Assessment and Plan Plan: -acute hypoxic respiratory failure: Secondary to Covid 19 pneumonia patient is presently ondexamethasone, vitamin C and zinc sulfate along with Remdesivir along with Plasma did patient's d-dimer trended down -hypervolemic hyponatremia improved with IV fluids of IV fluids will be discontinued -DVT prophylaxis with Lovenox and GI prophylaxis with Pepcid -history of sarcoidosis
--- NOTE | 2020-07-08 17:14 | P.PN ---
Subjective Progress Note Date: 07/08/20 Principal diagnosis: Covid 19 pneumonia This is a very pleasant 55-year-old gentleman who was admitted yesterday with CoVID 19 pneumonia. He had presented with increasing shortness of breath cough congestion fever. Stating his temperature was up to 105. He was having muscle aches and joint pain as well. No nausea vomiting or diarrhea. No abdominal pain. He is seen again today in follow-up. He is awake and alert in no acute distress. He is still requiring 15 L partial rebreather mask to maintain O2 saturation in the low 90s. Febrile with a temperature of 100.1. He modynamically stable. This is day #2 of Remdesivir. He is continued on dexamethasone, Lovenox, zinc, vitamin C, vitamin D, melatonin, Pepcid. The patient is seen today 07/07/2020 in follow-up on the selective care unit. He is still having significant hypoxemia. He did drop to 85% on 15 L high flow nasal cannula. He was converted to the AirVo at 60 L and 94% FiO2. O2 saturation on the 90s. Currently laying in a prone position. This is day 3 of his Remdesivir. He also is to receive convalescent plasma. He is continued on dexamethasone, Lovenox, zinc, vitamin C, vitamin D, melatonin, Pepcid. Chest x- ray continues to show bilateral pneumonia. White count 6.5. Hemoglobin 1415.0. D-dimer 1.25. Sodium 136 Potassium 3.8 creatinine 0.82. LDH 1091. C- reactive protein 85.6. The patient is seen today 07/08/2020 in follow-up on the selective care unit. He is awake and alert in no acute distress. He is currently leaning laying prone on his bed. He states he is breathing a bit easier today compared to yesterday. He is on day 4 of his Remdesivir treatment. He did receive con valescent plasma. Remains on the AirVo high flow oxygen device at 55 L and 93% FiO2. O2 saturation at 93% currently. He is continued on dexamethasone, Lovenox, zinc, vitamin C, vitamin D, melatonin, Pepcid. D-dimer 1.02. LDH 1105. C-reactive protein 52.1. Objective - Vital Signs Vital signs: Vital Signs Temp 98.4 F 07/08/20 12:00 Pulse 66 07/08/20 12:00 Resp 20 07/08/20 04:00 BP 127/73 07/08/20 12:00 Pulse Ox 93 L 07/08/20 12:00 Intake & Output 07/07/20 07/08/20 07/08/20 18:59 06:59 18:59 Intake Total 750 580 Output Total 275 825 Balance 475 -825 580 Weight 70 kg Intake: Oral 540 580 Blood Product 210 Ffp Pher Conval Covid19 210 Acda 1 Unit [id number] Output: Urine 275 825 Other: # Voids 2 1 2 - Exam GENERAL EXAM: Alert, pleasant 55-year-old gentleman laying prone in bed, on rVo 55L at 93% FiO2, fairly comfortable in no apparent distress. HEAD: Normocephalic. EYES: Normal reaction of pupils, equal size. NOSE: Clear with pink turbinates. THROAT: No erythema or exudates. NECK: No masses, no JVD. CHEST: No chest wall deformity. LUNGS: Equal air entry with bilateral scattered rhonchi. CVS: S1 and S2 normal with no audible murmur, regular rhythm. ABDOMEN: No hepatosplenomegaly, normal bowel sounds, no guarding or rigidity. SPINE: No scoliosis or deformity SKIN: No rashes CENTRAL NERVOUS SYSTEM: No focal deficits, tone is normal in all 4 extremities. EXTREMITIES: There is no peripheral edema. No clubbing, no cyanosis. Peripheral pulses are intact. - Labs CBC & Chem 7: 07/07/20 08:17 07/07/20 08:17 Labs: Abnormal Lab Results - Last 24 Hours (Table) 07/07/20 07/08/20 07/08/20 Range/Units 08:17 07:44 07:44 D-Dimer 1.02 H (<0.60) mg/L FEU Ferritin 4945.4 H (22.0-322.0) ng/mL Lactate Dehydrogenase 1105 H (313-618) U/L C-Reactive Protein 52.1 H (<10.0) mg/L Microbiology - Last 24 Hours (Table) 07/05/20 10:05 Blood Culture - Preliminary Blood No Growth after 72 hours 07/07/20 08:17 Blood Culture - Preliminary Blood No Growth after 24 hours Assessment and Plan Assessment: 1 Acute hypoxemic respiratory failure secondary to acute CoVID 19 pneumonia 2 Febrile illness secondary to above 3 Elevated inflammatory markers secondary to above 4 History of sarcoidosis with previous lung biopsy 5 Chronic tobacco dependence Plan: The patient was seen and evaluated by Dr. Pineda Chest x-ray slightly improved especially in the left lung base Titrating down the FiO2 as tolerated Continue Remdesivir, Lovenox, dexamethasone Received convalescent plasma 1 Continue Pepcid, melatonin, vitamin C, vitamin D, zinc We will continue to follow and make further recommendations based on his clinical status I, the cosigning physician, performed a history & physical examination of the patient. Lungs sounds with bilateral scattered rhonchi. Maintaining good O2 saturations in the 90s on AirVo at 55L and 93% Fio2. I discussed the assessment and plan of care with my nurse practitioner, Camille Erickson. I attest to the above note as dictated by her.
[2020-07-08] MEDS: REMDESIVIR (EUA) 100 MG in SODIUM CHLORIDE 0.9% 250 ML IVPB SCH (17:43)
[2020-07-08] MEDS: MELATONIN 5 MG TABLET PO SCH (20:34)
[2020-07-09] MEDS: ALBUTEROL HFA INHALER INHALATION SCH ×4 (09:01→21:07)
[2020-07-09] MEDS: ASCORBIC ACID 500 MG TAB PO SCH ×2 (09:20→20:47)
[2020-07-09] MEDS: CHOLECALCIFEROL 400 UNIT TAB PO SCH (09:21)
[2020-07-09] MEDS: ENOXAPARIN 40 MG/0.4 ML SYRINGE SQ SCH (09:21)
[2020-07-09] MEDS: ZINC SULFATE 220 MG CAP PO SCH (09:21)
[2020-07-09] MEDS: dexAMETHasone 2 MG TAB PO SCH (09:21)
[2020-07-09] MEDS: FAMOTIDINE 20 MG TAB PO SCH (09:21)
--- NOTE | 2020-07-09 13:25 | P.PN ---
Subjective patient is a pleasant 55-year-old the male admitted for with 19 pneumonia and respiratory failure secondary to cord 90 pneumonia and patient is presently on3 L of oxygen saturating at 91% patient feels marginally better patient still has fevers and elevated the inflammatory markers. 07/07/2020 Patient is presently on 15 L of onset was started on Airvo, patient is also receiving plasma, patient is also on Remdesivir 07/08/2020 Patient is presently in 6 L of oxygen although feeling bit better compared to yesterday patient went on BiPAP yesterday. Patient received plasma. 07/09/2020 Patient is on 15 L of oxygen via Airvo. Constitutional: Denied any fatigue denied any fever. Cardio vascular: denied any chest pain, palpitations Gastrointestinal denied any nausea vomiting Pulmonary: short of breath he believes it may be a bit better today Neurologic denied any new focal deficits All inpatient medications were reviewed and appropriate changes in these medications as dictated in the interval history and assessment and plan. Objective - Vital Signs Vital signs: Vital Signs Temp 98.1 F 07/09/20 08:00 Pulse 63 07/09/20 11:59 Resp 18 07/09/20 12:00 BP 118/67 07/09/20 11:59 Pulse Ox 90 L 07/09/20 11:59 Intake & Output 07/08/20 07/09/20 07/09/20 18:59 06:59 18:59 Intake Total 820 20 236 Balance 820 20 236 Weight 69 kg Intake: IV 20 .09 20 Oral 820 236 Other: # Voids 2 1 1 # Bowel Movements 1 - Exam PHYSICAL EXAMINATION: GENERAL: The patient is alert and oriented x3, not in any acute distress. Well developed, well nourished. HEENT: Pupils are round and equally reacting to light. EOMI. No scleral icterus. No conjunctival pallor. Normocephalic, atraumatic. No pharyngeal erythema. No thyromegaly. CARDIOVASCULAR: S1 and S2 present. No murmurs, rubs, or gallops. PULMONARY: Chest is clear to auscultation, no wheezing or crackles. ABDOMEN: Soft, nontender, nondistended, normoactive bowel sounds. No palpable organomegaly. MUSCULOSKELETAL: No joint swelling or deformity. EXTREMITIES: No cyanosis, clubbing, or pedal edema. NEUROLOGICAL: Gross neurological examination did not reveal any focal deficits. SKIN: No rashes. Note: Because of COVID 19 isolation, some of the history and physical exam findings are indirect and obtained from nursing staff, and other physician examinations to avoid unnecessary contact with the patient. - Labs CBC & Chem 7: 07/07/20 08:17 07/07/20 08:17 Labs: Microbiology - Last 24 Hours (Table) 07/05/20 10:05 Blood Culture - Preliminary Blood No Growth after 96 hours 07/07/20 08:17 Blood Culture - Preliminary Blood No Growth after 48 hours Assessment and Plan Plan: -acute hypoxic respiratory failure: Secondary to Covid 19 pneumonia patient is presently on dexamethasone, vitamin C and zinc sulfate along with Remdesivir along with Plasma did patient's d-dimer trended down -hypervolemic hyponatremia improved with IV fluids IV off IV fluids now. Patient is presently on 15 L of oxygen -DVT prophylaxis with Lovenox and GI prophylaxis with Pepcid -history of sarcoidosis
[2020-07-09] MEDS: REMDESIVIR (EUA) 100 MG in SODIUM CHLORIDE 0.9% 250 ML IVPB SCH (17:07)
--- NOTE | 2020-07-09 18:21 | P.PN ---
Subjective Progress Note Date: 07/09/20 On 07/09/2020 the patient is being seen for a follow-up. The patient is on the fifth day of Remdesivir treatment regarding the Covid 19 related pneumonia. The patient also received convalescent plasma. The patient is currently on high flow oxygen with a flow of 55 L and FiO2 of 70%. Pulse ox in the order of 97%. He is feeling better compared to yesterday. FiO2 has been gradually wean down as noted. He is afebrile. Hemodynamically stable. No hemoptysis. No pleurisy. His d-dimer is at 1.02. His LDH level is 08/24/2004 and a CRP is down to 52.1. Rest of the electrodes are all stable. The patient is on Decadron. The patient is afebrile for now. Objective - Vital Signs Vital signs: Vital Signs Temp 98.2 F 07/09/20 16:00 Pulse 63 07/09/20 16:00 Resp 18 07/09/20 16:00 BP 114/69 07/09/20 16:00 Pulse Ox 97 07/09/20 16:00 Intake & Output 07/08/20 07/09/20 07/09/20 18:59 06:59 18:59 Intake Total 820 20 708 Balance 820 20 708 Weight 69 kg Intake: IV 20 .09 20 Oral 820 708 Other: # Voids 2 1 1 # Bowel Movements 1 - Exam GENERAL EXAM: Alert, pleasant 55-year-old gentleman laying prone in bed, on AirVo 50L at 93% FiO2, fairly comfortable in no apparent distress. HEAD: Normocephalic. EYES: Normal reaction of pupils, equal size. NOSE: Clear with pink turbinates. THROAT: No erythema or exudates. NECK: No masses, no JVD. CHEST: No chest wall deformity. LUNGS: Equal air entry with bilateral scattered rhonchi. CVS: S1 and S2 normal with no audible murmur, regular rhythm. ABDOMEN: No hepatosplenomegaly, normal bowel sounds, no guarding or rigidity. SPINE: No scoliosis or deformity SKIN: No rashes CENTRAL NERVOUS SYSTEM: No focal deficits, tone is normal in all 4 extremities. EXTREMITIES: There is no peripheral edema. No clubbing, no cyanosis. Peripheral pulses are intact. - Labs CBC & Chem 7: 07/07/20 08:17 07/07/20 08:17 Labs: Microbiology - Last 24 Hours (Table) 07/05/20 10:05 Blood Culture - Preliminary Blood No Growth after 96 hours 07/07/20 08:17 Blood Culture - Preliminary Blood No Growth after 48 hours Assessment and Plan Plan: 1 acute Covid 19 related pneumonia with secondary hypoxic respiratory failure. The patient has been she with a combination of Decadron, opalescent asthma and completed a course of Remdesivir 2 acute hypoxic respiratory failure is still on high flow oxygen for now 3 elevated inflammatory markers 4 history of sarcoidosis, remote, not receiving any form of treatment at this point in time Plan The patient will complete Remdesivir treatment today Continue Decadron Continue Lovenox Continue supplements including Pepcid melatonin and vitamin C and zinc and vitamin D Wean down FiO2 slowly to maintain a saturation above 90% Chest x-ray findings are stable We'll continue to follow
[2020-07-09] MEDS: MELATONIN 5 MG TABLET PO SCH (20:46)
[2020-07-10] MEDS: ALBUTEROL HFA INHALER INHALATION SCH ×4 (07:59→20:19)
[2020-07-10] MEDS: dexAMETHasone 2 MG TAB PO SCH (09:06)
[2020-07-10] MEDS: ENOXAPARIN 40 MG/0.4 ML SYRINGE SQ SCH (09:06)
[2020-07-10] MEDS: ASCORBIC ACID 500 MG TAB PO SCH ×2 (09:07→20:57)
[2020-07-10] MEDS: ZINC SULFATE 220 MG CAP PO SCH (09:07)
[2020-07-10] MEDS: CHOLECALCIFEROL 400 UNIT TAB PO SCH (09:07)
[2020-07-10] MEDS: FAMOTIDINE 20 MG TAB PO SCH (09:07)
--- NOTE | 2020-07-10 13:44 | P.PN ---
Subjective patient is a pleasant 55-year-old the male admitted for with 19 pneumonia and respiratory failure secondary to cord 90 pneumonia and patient is presently on3 L of oxygen saturating at 91% patient feels marginally better patient still has fevers and elevated the inflammatory markers. 07/07/2020 Patient is presently on 15 L of onset was started on Airvo, patient is also receiving plasma, patient is also on Remdesivir 07/08/2020 Patient is presently in 6 L of oxygen although feeling bit better compared to yesterday patient went on BiPAP yesterday. Patient received plasma. 07/09/2020 Patient is on 50 L of oxygen via Airvo. 07/10/2020 Patient's is pretty status improved and presently on 45 L of oxygen. Constitutional: Denied any fatigue denied any fever. Cardio vascular: denied any chest pain, palpitations Gastrointestinal denied any nausea vomiting Pulmonary: short of breath he believes it may be a bit better today Neurologic denied any new focal deficits All inpatient medications were reviewed and appropriate changes in these me dications as dictated in the interval history and assessment and plan. Objective - Vital Signs Vital signs: Vital Signs Temp 98.2 F 07/10/20 11:34 Pulse 70 07/10/20 11:34 Resp 18 07/10/20 11:34 BP 116/66 07/10/20 11:34 Pulse Ox 96 07/10/20 11:34 Intake & Output 07/09/20 07/10/20 07/10/20 18:59 06:59 18:59 Intake Total 708 Balance 708 Weight 63.5 kg Intake: Oral 708 Other: # Voids 1 2 0 # Bowel Movements 0 - Exam PHYSICAL EXAMINATION: GENERAL: The patient is alert and oriented x3, not in any acute distress. Well developed, well nourished. HEENT: Pupils are round and equally reacting to light. EOMI. No scleral icterus. No conjunctival pallor. Normocephalic, atraumatic. No pharyngeal erythema. No thyromegaly. CARDIOVASCULAR: S1 and S2 present. No murmurs, rubs, or gallops. PULMONARY: Chest is clear to auscultation, no wheezing or crackles. ABDOMEN: Soft, nontender, nondistended, normoactive bowel sounds. No palpable organomegaly. MUSCULOSKELETAL: No joint swelling or deformity. EXTREMITIES: No cyanosis, clubbing, or pedal edema. NEUROLOGICAL: Gross neurological examination did not reveal any focal deficits. SKIN: No rashes. Note: Because of COVID 19 isolation, some of the history and physical exam findings are indirect and obtained from nursing staff, and other physician examinations to avoid unnecessary contact with the patient. - Labs CBC & Chem 7: 07/07/20 08:17 07/07/20 08:17 Labs: Microbiology - Last 24 Hours (Table) 07/05/20 10:05 Blood Culture - Preliminary Blood No Growth after 120 hours 07/07/20 08:17 Blood Culture - Preliminary Blood No Growth after 72 hours Assessment and Plan Plan: -acute hypoxic respiratory failure: Secondary to Covid 19 pneumonia patient is presently on dexamethasone, vitamin C and zinc sulfate along with Remdesivir along with Plasma did patient's d-dimer trended down. Still has a elevated inflammatory markers. -hypervolemic hyponatremia improved with IV fluids IV off IV fluids now. Naya ent is presently on 45 L of oxygen -DVT prophylaxis with Lovenox and GI prophylaxis with Pepcid -history of sarcoidosis
--- NOTE | 2020-07-10 18:53 | P.PN ---
Subjective Progress Note Date: 07/10/20 Principal diagnosis: COVID 19-related pneumonitis On 07/09/2020 the patient is being seen for a follow-up. The patient is on the fifth day of Remdesivir treatment regarding the Covid 19 related pneumonia. The patient also received convalescent plasma. The patient is currently on high flow oxygen with a flow of 55 L and FiO2 of 70%. Pulse ox in the order of 97%. He is feeling better compared to yesterday. FiO2 has been gradually wean down as noted. He is afebrile. Hemodynamically stable. No hemoptysis. No pleurisy. His d-dimer is at 1.02. His LDH level is 08/24/2004 and a CRP is down to 52.1. Rest of the electrodes are all stable. The patient is on Decadron. The patient is afebrile for now. On 07/10/2020 patient seen in follow-up on selective care unit, he remains on high flow oxygen, in the form of Airvo at 50 L, and FiO2 of 67% and this pulse ox is 92%, patient has been self-proning, he is awake and alert, appears to be in no acute distress, he is status post Remdesivir, and at one unit of convalescent plasma. His LDH and CRP remain elevated, pro-calcitonin level was negative, d-dimer is 1.02, patient is on prophylactic dose of Lovenox, blood c ultures have shown no growth. He remains on Decadron, Lovenox, Pepcid, vitamin D, melatonin, and zinc Objective - Vital Signs Vital signs: Vital Signs Temp 98.2 F 07/10/20 16:00 Pulse 70 07/10/20 16:00 Resp 18 07/10/20 16:00 BP 101/57 07/10/20 16:00 Pulse Ox 95 07/10/20 16:00 Intake & Output 07/09/20 07/10/20 07/10/20 18:59 06:59 18:59 Intake Total 708 240 Balance 708 240 Weight 63.5 kg Intake: Oral 708 240 Other: # Voids 1 2 0 # Bowel Movements 0 - Exam GENERAL EXAM: Alert, very pleasant, 55-year-old white male, on high flow oxygen via Airvo at 45% and FiO2 of 67% comfortable in no apparent distress. HEAD: Normocephalic/atraumatic. EYES: Normal reaction of pupils, equal size. Conjunctiva pink, sclera white. NOSE: Clear with pink turbinates. THROAT: No erythema or exudates. NECK: No masses, no JVD, no thyroid enlargement, no adenopathy. CHEST: No chest wall deformity. Symmetrical expansion. LUNGS: Equal air entry with no crackles, wheeze, rhonchi or dullness. CVS: Regular rate and rhythm, normal S1 and S2, no gallops, no murmurs, no rubs ABDOMEN: Soft, nontender. No hepatosplenomegaly, normal bowel sounds, no guarding or rigidity. EXTREMITIES: No clubbing, no edema, no cyanosis, 2+ pulses and upper and lower extremities. MUSCULOSKELETAL: Muscle strength and tone normal. SPINE: No scoliosis or deformity SKIN: No rashes CENTRAL NERVOUS SYSTEM: Alert and oriented -3. No focal deficits, tone is normal in all 4 extremities. PSYCHIATRIC: Alert and oriented -3. Appropriate affect. Intact judgment and i nsight. - Labs CBC & Chem 7: 07/07/20 08:17 07/07/20 08:17 Labs: Microbiology - Last 24 Hours (Table) 07/05/20 10:05 Blood Culture - Preliminary Blood No Growth after 120 hours 07/07/20 08:17 Blood Culture - Preliminary Blood No Growth after 72 hours Assessment and Plan Plan: Assessment: 1 acute Covid 19 related pneumonia with secondary hypoxic respiratory failure. The patient has been she with a combination of Decadron, opalescent asthma and completed a course of Remdesivir 2 acute hypoxic respiratory failure is still on high flow oxygen for now 3 elevated inflammatory markers 4 history of sarcoidosis, remote, not receiving any form of treatment at this point in time Plan: Patient has completed Remdesivir, he received 1 unit of convalescent plasma, continue with Decadron, continue weaning FiO2, continue Lovenox, Pepcid, melatonin, oral zinc, vitamin C, vitamin D. The FiO2 down to 45%, and continue dropping maintain a saturation of 90% or above. Monitor febrile pattern, monitor oxygenation, may try high flow nasal cannula tomorrow. Encouraged self proning, we'll continue to closely follow I performed a history & physical examination of the patient and discussed their management with my nurse practitioner, Rachel Zabala. I reviewed the nurse practitioner's note and agree with the documented findings and plan of care. Lung sounds are positive for diminished breath sounds and crackles. The findings and the impression was discussed with the patient. I attest to the documentation by the nurse practitioner. Time with Patient: Less than 30
[2020-07-10] MEDS: MELATONIN 5 MG TABLET PO SCH (20:58)
[2020-07-11] MEDS: dexAMETHasone 2 MG TAB PO SCH (09:46)
[2020-07-11] MEDS: ALBUTEROL HFA INHALER INHALATION SCH ×5 (09:47→20:46)
[2020-07-11] MEDS: ZINC SULFATE 220 MG CAP PO SCH (09:47)
[2020-07-11] MEDS: FAMOTIDINE 20 MG TAB PO SCH (09:47)
[2020-07-11] MEDS: ENOXAPARIN 40 MG/0.4 ML SYRINGE SQ SCH (09:47)
[2020-07-11] MEDS: ASCORBIC ACID 500 MG TAB PO SCH ×2 (09:47→20:22)
[2020-07-11] MEDS: CHOLECALCIFEROL 400 UNIT TAB PO SCH (09:47)
--- NOTE | 2020-07-11 14:35 | P.PN ---
Subjective patient is a pleasant 55-year-old the male admitted for with 19 pneumonia and respiratory failure secondary to cord 90 pneumonia and patient is presently on3 L of oxygen saturating at 91% patient feels marginally better patient still has fevers and elevated the inflammatory markers. 07/07/2020 Patient is presently on 15 L of onset was started on Airvo, patient is also receiving plasma, patient is also on Remdesivir 07/08/2020 Patient is presently in 6 L of oxygen although feeling bit better compared to yesterday patient went on BiPAP yesterday. Patient received plasma. 07/09/2020 Patient is on 50 L of oxygen via Airvo. 07/10/2020 Patient's is pretty status improved and presently on 45 L of oxygen. 07/11/2020 Patient is presently on 40 L of oxygen feeling much better hopefully will be able to cut down the oxygen even more and possibility of discharge in about 3-4 days if we're able to wean off oxygen by the time. Constitutional: Denied any fatigue denied any fever. Cardio vascular: denied any chest pain, palpitations Gastrointestinal denied any nausea vomiting Pulmonary: short of breath he believes it may be a bit better today Neurologic denied any new focal deficits All inpatient medications were reviewed and appropriate changes in these medications as dictated in the interval history and assessment and plan. Objective - Vital Signs Vital signs: Vital Signs Temp 98.2 F 07/11/20 08:00 Pulse 76 07/11/20 12:00 Resp 18 07/11/20 12:00 BP 112/66 07/11/20 12:00 Pulse Ox 98 07/11/20 12:00 Intake & Output 07/10/20 07/11/20 07/11/20 18:59 06:59 18:59 Intake Total 240 240 Output Total 300 Balance 240 -60 Weight 64.3 kg Intake: Oral 240 240 Output: Urine 300 Other: # Voids 0 # Bowel Movements 0 - Exam PHYSICAL EXAMINATION: GENERAL: The patient is alert and oriented x3, not in any acute distress. Well developed, well nourished. HEENT: Pupils are round and equally reacting to light. EOMI. No scleral icterus. No conjunctival pallor. Normocephalic, atraumatic. No pharyngeal erythema. No thyromegaly. CARDIOVASCULAR: S1 and S2 present. No murmurs, rubs, or gallops. PULMONARY: Chest is clear to auscultation, no wheezing or crackles. ABDOMEN: Soft, nontender, nondistended, normoactive bowel sounds. No palpable organomegaly. MUSCULOSKELETAL: No joint swelling or deformity. EXTREMITIES: No cyanosis, clubbing, or pedal edema. NEUROLOGICAL: Gross neurological examination did not reveal any focal deficits. SKIN: No rashes. Note: Because of COVID 19 isolation, some of the history and physical exam findings are indirect and obtained from nursing staff, and other physician examinations to avoid unnecessary contact with the patient. - Labs CBC & Chem 7: 07/07/20 08:17 07/07/20 08:17 Labs: Microbiology - Last 24 Hours (Table) 07/05/20 10:05 Blood Culture - Final Blood No Growth after 144 hours 07/07/20 08:17 Blood Culture - Preliminary Blood No Growth after 96 hours Assessment and Plan Plan: -acute hypoxic respiratory failure: Secondary to Covid 19 pneumonia patient is presently on dexamethasone, vitamin C and zinc sulfate , completed Remdesivir and Plasma . Proving but slow improvement -hypervolemic hyponatremia improved with IV fluids IV off IV fluids now. Patient is presently on 40 L of oxygen -DVT prophylaxis with Lovenox and GI prophylaxis with Pepcid -history of sarcoidosis
--- NOTE | 2020-07-11 15:33 | P.PN ---
Subjective Progress Note Date: 07/11/20 Principal diagnosis: Covid 19 pneumonia This is a very pleasant 55-year-old gentleman who was admitted yesterday with CoVID 19 pneumonia. He had presented with increasing shortness of breath cough congestion fever. Stating his temperature was up to 105. He was having muscle aches and joint pain as well. No nausea vomiting or diarrhea. No abdominal pain. He is seen again today in follow-up. He is awake and alert in no acute distress. He is still requiring 15 L partial rebreather mask to maintain O2 saturation in the low 90s. Febrile with a temperature of 100.1. He modynamically stable. This is day #2 of Remdesivir. He is continued on dexamethasone, Lovenox, zinc, vitamin C, vitamin D, melatonin, Pepcid. The patient is seen today 07/07/2020 in follow-up on the selective care unit. He is still having significant hypoxemia. He did drop to 85% on 15 L high flow nasal cannula. He was converted to the AirVo at 60 L and 94% FiO2. O2 saturation on the 90s. Currently laying in a prone position. This is day 3 of his Remdesivir. He also is to receive convalescent plasma. He is continued on dexamethasone, Lovenox, zinc, vitamin C, vitamin D, melatonin, Pepcid. Chest x- ray continues to show bilateral pneumonia. White count 6.5. Hemoglobin 1415.0. D-dimer 1.25. Sodium 136 Potassium 3.8 creatinine 0.82. LDH 1091. C- reactive protein 85.6. The patient is seen today 07/08/2020 in follow-up on the selective care unit. He is awake and alert in no acute distress. He is currently leaning laying prone on his bed. He states he is breathing a bit easier today compared to yesterday. He is on day 4 of his Remdesivir treatment. He did receive con valescent plasma. Remains on the AirVo high flow oxygen device at 55 L and 93% FiO2. O2 saturation at 93% currently. He is continued on dexamethasone, Lovenox, zinc, vitamin C, vitamin D, melatonin, Pepcid. D-dimer 1.02. LDH 1105. C-reactive protein 52.1. On 07/09/2020 the patient is being seen for a follow-up. The patient is on the fifth day of Remdesivir treatment regarding the Covid 19 related pneumonia. The patient also received convalescent plasma. The patient is currently on high flow oxygen with a flow of 55 L and FiO2 of 70%. Pulse ox in the order of 97%. He is feeling better compared to yesterday. FiO2 has been gradually wean down as noted. He is afebrile. Hemodynamically stable. No hemoptysis. No pleurisy. His d-dimer is at 1.02. His LDH level is 08/24/2004 and a CRP is down to 52.1. Rest of the electrodes are all stable. The patient is on Decadron. The patient is afebrile for now. On 07/10/2020 patient seen in follow-up on selective care unit, he remains on high flow oxygen, in the form of Airvo at 50 L, and FiO2 of 67% and this pulse ox is 92%, patient has been self-proning, he is awake and alert, appears to be in no acute distress, he is status post Remdesivir, and at one unit of convalescent plasma. His LDH and CRP remain elevated, pro-calcitonin level was negative, d-dimer is 1.02, patient is on prophylactic dose of Lovenox, blood cultures have shown no growth. He remains on Decadron, Lovenox, Pepcid, vitamin D, melatonin, and zinc The patient is seen today 07/11/2020 in follow-up on the selective care unit. He is currently sitting up in a chair at the bedside. Awake and alert in no acute distress. Breathing quite a bit easier today compared to yesterday. He remains on the airflow 40 liters and 50% FiO2 and maintaining O2 saturations in the 90s. He still has some dyspnea with minimal exertion. Continues with a nonproductive cough. Blood cultures reveal no growth. He has completed Remdesivir. He did receive convalescent plasma. He is continued on dexamethasone, Lovenox, zinc, vitamin C, vitamin D, melatonin, Pepcid. Objective - Vital Signs Vital signs: Vital Signs Temp 98.2 F 07/11/20 08:00 Pulse 76 07/11/20 12:00 Resp 18 07/11/20 12:00 BP 112/66 07/11/20 12:00 Pulse Ox 98 07/11/20 12:00 Intake & Output 07/10/20 07/11/20 07/11/20 18:59 06:59 18:59 Intake Total 240 240 Output Total 300 Balance 240 -60 Weight 64.3 kg Intake: Oral 240 240 Output: Urine 300 Other: # Voids 0 # Bowel Movements 0 - Exam GENERAL EXAM: Alert, pleasant 55-year-old gentleman sitting up in a chair at the bedside, on AirVo 40L at 50% FiO2, fairly comfortable in no apparent distress. HEAD: Normocephalic. EYES: Normal reaction of pupils, equal size. NOSE: Clear with pink turbinates. THROAT: No erythema or exudates. NECK: No masses, no JVD. CHEST: No chest wall deformity. LUNGS: Equal air entry with bilateral scattered rhonchi. CVS: S1 and S2 normal with no audible murmur, regular rhythm. ABDOMEN: No hepatosplenomegaly, normal bowel sounds, no guarding or rigidity. SPINE: No scoliosis or deformity SKIN: No rashes CENTRAL NERVOUS SYSTEM: No focal deficits, tone is normal in all 4 extremities. EXTREMITIES: There is no peripheral edema. No clubbing, no cyanosis. Peripheral pulses are intact. - Labs CBC & Chem 7: 07/07/20 08:17 07/07/20 08:17 Labs: Microbiology - Last 24 Hours (Table) 07/05/20 10:05 Blood Culture - Final Blood No Growth after 144 hours 07/07/20 08:17 Blood Culture - Preliminary Blood No Growth after 96 hours Assessment and Plan Assessment: 1 Acute hypoxemic respiratory failure secondary to acute CoVID 19 pneumonia. Completed Remdesivir, received convalescent plasma 2 Febrile illness secondary to above 3 Elevated inflammatory markers secondary to above 4 History of sarcoidosis with previous lung biopsy 5 Chronic tobacco dependence Plan: The patient was seen and evaluated by Dr. Mann Titrating down the FiO2 as tolerated Completed Remdesivir Received convalescent plasma 1 Continue Lovenox, dexamethasone, Pepcid, melatonin, vitamin C, vitamin D, zinc Repeat chest x-ray in the a.m. We will continue to follow and make further recommendations based on his clinical status I, the cosigning physician, performed a history & physical examination of the patient. Lungs sounds with bilateral scattered rhonchi. Maintaining good O2 saturations in the 90s on AirVo at 40L and 50% Fio2. I discussed the assessment and plan of care with my nurse practitioner, Camille Erickson. I attest to the above note as dictated by her.
[2020-07-11] MEDS: MELATONIN 5 MG TABLET PO SCH (20:22)
[2020-07-12] MEDS: ALBUTEROL HFA INHALER INHALATION SCH ×4 (08:03→20:14)
--- NOTE | 2020-07-12 08:50 | XR ---
EXAMINATION TYPE: XR chest 1V portable DATE OF EXAM: 07/12/2020 COMPARISON: 07/08/2020 INDICATION: Covid pneumonia TECHNIQUE: Single frontal view of the chest is obtained. FINDINGS: The heart size is upper limits of normal. The pulmonary vasculature is prominent. There is diffuse increased infiltrates present. This is worsening of the left base. IMPRESSION: 1. Diffuse increased lung markings compatible with atypical pneumonia. This may be worsening at the l eft base. Continued follow-up is recommended.
[2020-07-12] MEDS: FAMOTIDINE 20 MG TAB PO SCH (11:11)
[2020-07-12] MEDS: dexAMETHasone 2 MG TAB PO SCH (11:11)
[2020-07-12] MEDS: CHOLECALCIFEROL 400 UNIT TAB PO SCH (11:11)
[2020-07-12] MEDS: ZINC SULFATE 220 MG CAP PO SCH (11:11)
[2020-07-12] MEDS: ASCORBIC ACID 500 MG TAB PO SCH ×2 (11:11→20:48)
[2020-07-12] MEDS: ENOXAPARIN 40 MG/0.4 ML SYRINGE SQ SCH (11:11)
[2020-07-12 12:37] LABS: C Reactive Protein 25.4 mg/L (<10.0)
[2020-07-12 12:51] VITALS: BMI 23.7
--- NOTE | 2020-07-12 15:32 | P.PN ---
Subjective Progress Note Date: 07/12/20 Principal diagnosis: Covid 19 pneumonia This is a very pleasant 55-year-old gentleman who was admitted yesterday with CoVID 19 pneumonia. He had presented with increasing shortness of breath cough congestion fever. Stating his temperature was up to 105. He was having muscle aches and joint pain as well. No nausea vomiting or diarrhea. No abdominal pain. He is seen again today in follow-up. He is awake and alert in no acute distress. He is still requiring 15 L partial rebreather mask to maintain O2 saturation in the low 90s. Febrile with a temperature of 100.1. He modynamically stable. This is day #2 of Remdesivir. He is continued on dexamethasone, Lovenox, zinc, vitamin C, vitamin D, melatonin, Pepcid. The patient is seen today 07/07/2020 in follow-up on the selective care unit. He is still having significant hypoxemia. He did drop to 85% on 15 L high flow nasal cannula. He was converted to the AirVo at 60 L and 94% FiO2. O2 saturation on the 90s. Currently laying in a prone position. This is day 3 of his Remdesivir. He also is to receive convalescent plasma. He is continued on dexamethasone, Lovenox, zinc, vitamin C, vitamin D, melatonin, Pepcid. Chest x- ray continues to show bilateral pneumonia. White count 6.5. Hemoglobin 1415.0. D-dimer 1.25. Sodium 136 Potassium 3.8 creatinine 0.82. LDH 1091. C- reactive protein 85.6. The patient is seen today 07/08/2020 in follow-up on the selective care unit. He is awake and alert in no acute distress. He is currently leaning laying prone on his bed. He states he is breathing a bit easier today compared to yesterday. He is on day 4 of his Remdesivir treatment. He did receive con valescent plasma. Remains on the AirVo high flow oxygen device at 55 L and 93% FiO2. O2 saturation at 93% currently. He is continued on dexamethasone, Lovenox, zinc, vitamin C, vitamin D, melatonin, Pepcid. D-dimer 1.02. LDH 1105. C-reactive protein 52.1. On 07/09/2020 the patient is being seen for a follow-up. The patient is on the fifth day of Remdesivir treatment regarding the Covid 19 related pneumonia. The patient also received convalescent plasma. The patient is currently on high flow oxygen with a flow of 55 L and FiO2 of 70%. Pulse ox in the order of 97%. He is feeling better compared to yesterday. FiO2 has been gradually wean down as noted. He is afebrile. Hemodynamically stable. No hemoptysis. No pleurisy. His d-dimer is at 1.02. His LDH level is 08/24/2004 and a CRP is down to 52.1. Rest of the electrodes are all stable. The patient is on Decadron. The patient is afebrile for now. On 07/10/2020 patient seen in follow-up on selective care unit, he remains on high flow oxygen, in the form of Airvo at 50 L, and FiO2 of 67% and this pulse ox is 92%, patient has been self-proning, he is awake and alert, appears to be in no acute distress, he is status post Remdesivir, and at one unit of convalescent plasma. His LDH and CRP remain elevated, pro-calcitonin level was negative, d-dimer is 1.02, patient is on prophylactic dose of Lovenox, blood cultures have shown no growth. He remains on Decadron, Lovenox, Pepcid, vitamin D, melatonin, and zinc The patient is seen today 07/11/2020 in follow-up on the selective care unit. He is currently sitting up in a chair at the bedside. Awake and alert in no acute distress. Breathing quite a bit easier today compared to yesterday. He remains on the airflow 40 liters and 50% FiO2 and maintaining O2 saturations in the 90s. He still has some dyspnea with minimal exertion. Continues with a nonproductive cough. Blood cultures reveal no growth. He has completed Remdesivir. He did receive convalescent plasma. He is continued on dexamethasone, Lovenox, zinc, vitamin C, vitamin D, melatonin, Pepcid. The patient is seen today 07/12/2020 follow-up on the selective care unit. He is currently sitting up in bed. Awake and alert in no acute distress. Feeling better each day. Less short of breath. Less cough and congestion. Currently on airflow at 35 L and 40% FiO2. He is afebrile. Hemodynamically stable. Blood cultures reveal no growth. D-dimer 1.83. LDH 820. C-reactive protein. Inflammatory markers improving. He remains on vitamin C, vitamin D, dexamethasone, Lovenox, Pepcid, melatonin, zinc. Chest x-ray continues to revealed diffuse lung markings compatible with atypical pneumonia. Continues with opacities more so on the left lung base. Objective - Vital Signs Vital signs: Vital Signs Temp 98.2 F 07/12/20 08:00 Pulse 82 07/12/20 08:00 Resp 18 07/12/20 12:00 BP 113/71 07/12/20 08:00 Pulse Ox 93 L 07/12/20 08:00 Intake & Output 07/11/20 07/12/20 07/12/20 18:59 06:59 18:59 Intake Total 720 480 Balance 720 480 Weight 75 kg 75 kg Intake: Oral 720 480 Other: # Voids 5 1 3 - Exam GENERAL EXAM: Alert, pleasant 55-year-old gentleman sitting up in a chair at the bedside, on AirVo 35L at 40% FiO2, fairly comfortable in no apparent distress. HEAD: Normocephalic. EYES: Normal reaction of pupils, equal size. NOSE: Clear with pink turbinates. THROAT: No erythema or exudates. NECK: No masses, no JVD. CHEST: No chest wall deformity. LUNGS: Equal air entry with bilateral scattered rhonchi. CVS: S1 and S2 normal with no audible murmur, regular rhythm. ABDOMEN: No hepatosplenomegaly, normal bowel sounds, no guarding or rigidity. SPINE: No scoliosis or deformity SKIN: No rashes CENTRAL NERVOUS SYSTEM: No focal deficits, tone is normal in all 4 extremities. EXTREMITIES: There is no peripheral edema. No clubbing, no cyanosis. Peripheral pulses are intact. - Labs CBC & Chem 7: 07/07/20 08:17 07/07/20 08:17 Labs: Abnormal Lab Results - Last 24 Hours (Table) 07/12/20 07/12/20 Range/Units 11:50 11:50 D-Dimer 1.83 H (<0.60) mg/L FEU Lactate Dehydrogenase 820 H (313-618) U/L C-Reactive Protein 25.4 H (<10.0) mg/L Microbiology - Last 24 Hours (Table) 07/07/20 08:17 Blood Culture - Preliminary Blood No Growth after 120 hours 07/05/20 10:05 Blood Culture - Final Blood No Growth after 144 hours Assessment and Plan Assessment: 1 Acute hypoxemic respiratory failure secondary to acute CoVID 19 pneumonia. Completed Remdesivir, received convalescent plasma 2 Febrile illness secondary to above, recovered 3 Elevated inflammatory markers secondary to above much improved 4 History of sarcoidosis with previous lung biopsy 5 Chronic tobacco dependence Plan: The patient was seen and evaluated by Dr. Mann Titrating down the FiO2 as tolerated Attempt to wean off AirVo Continue Lovenox, dexamethasone, Pepcid, melatonin, vitamin C, vitamin D, zinc We will continue to follow and make further recommendations based on his clinical status I, the cosigning physician, performed a history & physical examination of the patient. Lungs sounds with bilateral scattered rhonchi. Maintaining good O2 saturations in the 90s on AirVo at 35L and 40% Fio2. I discussed the assessment and plan of care with my nurse practitioner, Camille Erickson. I attest to the above note as dictated by her.
--- NOTE | 2020-07-12 15:46 | P.PN ---
Subjective patient is a pleasant 55-year-old the male admitted for with 19 pneumonia and respiratory failure secondary to cord 90 pneumonia and patient is presently on3 L of oxygen saturating at 91% patient feels marginally better patient still has fevers and elevated the inflammatory markers. 07/07/2020 Patient is presently on 15 L of onset was started on Airvo, patient is also receiving plasma, patient is also on Remdesivir 07/08/2020 Patient is presently in 6 L of oxygen although feeling bit better compared to yesterday patient went on BiPAP yesterday. Patient received plasma. 07/09/2020 Patient is on 50 L of oxygen via Airvo. 07/10/2020 Patient's is pretty status improved and presently on 45 L of oxygen. 07/11/2020 Patient is presently on 40 L of oxygen feeling much better hopefully will be able to cut down the oxygen even more and possibility of discharge in about 3-4 days if we're able to wean off oxygen by the time. 07/12/2020 Patient is presently on 35 L of oxygen probably we can wean it down even more. Patient is feeling much better Constitutional: Denied any fatigue denied any fever. Cardio vascular: denied any chest pain, palpitations Gastrointestinal denied any nausea vomiting Pulmonary: No shortness of breath feeling much better Neurologic denied any new focal deficits All inpatient medications were reviewed and appropriate changes in these medications as dictated in the interval history and assessment and plan. Objective - Vital Signs Vital signs: Vital Signs Temp 98.2 F 07/12/20 08:00 Pulse 82 07/12/20 08:00 Resp 18 07/12/20 12:00 BP 113/71 07/12/20 08:00 Pulse Ox 93 L 07/12/20 08:00 Intake & Output 07/11/20 07/12/20 07/12/20 18:59 06:59 18:59 Intake Total 720 480 Balance 720 480 Weight 75 kg 75 kg Intake: Oral 720 480 Other: # Voids 5 1 3 - Exam PHYSICAL EXAMINATION: GENERAL: The patient is alert and oriented x3, not in any acute distress. Well developed, well nourished. HEENT: Pupils are round and equally reacting to light. EOMI. No scleral icterus. No conjunctival pallor. Normocephalic, atraumatic. No pharyngeal erythema. No thyromegaly. CARDIOVASCULAR: S1 and S2 present. No murmurs, rubs, or gallops. PULMONARY: Chest is clear to auscultation, no wheezing or crackles. ABDOMEN: Soft, nontender, nondistended, normoactive bowel sounds. No palpable organomegaly. MUSCULOSKELETAL: No joint swelling or deformity. EXTREMITIES: No cyanosis, clubbing, or pedal edema. NEUROLOGICAL: Gross neurological examination did not reveal any focal deficits. SKIN: No rashes. Note: Because of COVID 19 isolation, some of the history and physical exam findings are indirect and obtained from nursing staff, and other physician examinations to avoid unnecessary contact with the patient. - Labs CBC & Chem 7: 07/07/20 08:17 07/07/20 08:17 Labs: Abnormal Lab Results - Last 24 Hours (Table) 07/12/20 07/12/20 Range/Units 11:50 11:50 D-Dimer 1.83 H (<0.60) mg/L FEU Lactate Dehydrogenase 820 H (313-618) U/L C-Reactive Protein 25.4 H (<10.0) mg/L Microbiology - Last 24 Hours (Table) 07/07/20 08:17 Blood Culture - Preliminary Blood No Growth after 120 hours 07/05/20 10:05 Blood Culture - Final Blood No Growth after 144 hours Assessment and Plan Plan: -acute hypoxic respiratory failure: Secondary to Covid 19 pneumonia patient is presently on dexamethasone, vitamin C and zinc sulfate , completed Remdesivir and Plasma . Significant improvement in his respiratory status -hypervolemic hyponatremia improved with IV fluids IV off IV fluids now. Patient is presently on 30 L of oxygen. Hopefully he can be transitioned to high flow nasal cannula from [facility]. -DVT prophylaxis with Lovenox and GI prophylaxis with Pepcid -history of sarcoidosis
[2020-07-12] MEDS: MELATONIN 5 MG TABLET PO SCH (20:48)
[2020-07-13 06:44] VITALS: TEMP 98.2
[2020-07-13] MEDS: ALBUTEROL HFA INHALER INHALATION SCH ×2 (09:11→11:46)
[2020-07-13] MEDS: ASCORBIC ACID 500 MG TAB PO SCH (09:29)
[2020-07-13] MEDS: FAMOTIDINE 20 MG TAB PO SCH (09:29)
[2020-07-13] MEDS: ENOXAPARIN 40 MG/0.4 ML SYRINGE SQ SCH (09:30)
[2020-07-13 10:36] VITALS: RESP 19
[2020-07-13] MEDS: ZINC SULFATE 220 MG CAP PO SCH (12:32)
[2020-07-13] MEDS: dexAMETHasone 2 MG TAB PO SCH (12:32)
[2020-07-13] MEDS: CHOLECALCIFEROL 400 UNIT TAB PO SCH (12:32)
[2020-07-13 13:01] VITALS: BP 125/72; PULSE 82
--- NOTE | 2020-07-13 13:51 | P.DS ---
Providers Date of admission: 07/05/20 10:53 Attending physician: Irvin Palm MD Consults: 07/05/20 10:36 Consult Physician Urgent Consulting Provider: Elias Pineda Reason/Comments: covid pna Do you want consulting provider notified?: Yes Primary care physician: [facility] Course: patient is a pleasant 55-year-old the male admitted for with 19 pneumonia and respiratory failure secondary to cord 90 pneumonia and patient is presently on3 L of oxygen saturating at 91% patient feels marginally better patient still has fevers and elevated the inflammatory markers. 07/07/2020 Patient is presently on 15 L of onset was started on Airvo, patient is also receiving plasma, patient is also on Remdesivir 07/08/2020 Patient is presently in 6 L of oxygen although feeling bit better compared to yesterday patient went on BiPAP yesterday. Patient received plasma. 07/09/2020 Patient is on 50 L of oxygen via Airvo. 07/10/2020 Patient's is pretty status improved and presently on 45 L of oxygen. 07/11/2020 Patient is presently on 40 L of oxygen feeling much better hopefully will be able to cut down the oxygen even more and possibility of discharge in about 3-4 days if we're able to wean off oxygen by the time. 07/12/2020 Patient is presently on 35 L of oxygen probably we can wean it down even more. Patient is feeling much better 07/13/2020 Patient is off oxygen clinically doing well looks pretty. Patient will be discharged on low-dose of her Decadron which she can stop in couple days. Counseled him about the possibilities of adrenal insufficiency. will be discha rged today. PHYSICAL EXAMINATION: GENERAL: The patient is alert and oriented x3, not in any acute distress. Well developed, well nourished. HEENT: Pupils are round and equally reacting to light. EOMI. No scleral icterus. No conjunctival pallor. Normocephalic, atraumatic. No pharyngeal erythema. No thyromegaly. CARDIOVASCULAR: S1 and S2 present. No murmurs, rubs, or gallops. PULMONARY: Chest is clear to auscultation, no wheezing or crackles. ABDOMEN: Soft, nontender, nondistended, normoactive bowel sounds. No palpable organomegaly. MUSCULOSKELETAL: No joint swelling or deformity. EXTREMITIES: No cyanosis, clubbing, or pedal edema. NEUROLOGICAL: Gross neurological examination did not reveal any focal deficits. SKIN: No rashes. Note: Because of COVID 19 isolation, some of the history and physical exam findings are indirect and obtained from nursing staff, and other physician examinations to avoid unnecessary contact with the patient. Assessment and Plan Plan: -acute hypoxic respiratory failure: Secondary to Covid 19 pneumonia patient is presently on dexamethasone, vitamin C and zinc sulfate , completed Remdesivir and Plasma . Significant improvement in his respiratory status -hypervolemic hyponatremia improved Plan - Discharge Summary Discharge Rx Participant: Yes New Discharge Prescriptions: New dexAMETHasone [Hexadrol] 4 mg PO DAILY #2 tab Zinc Sulfate [Orazinc] 220 mg PO DAILY #20 cap Famotidine [Pepcid] 20 mg PO DAILY #10 tab Albuterol Inhaler [Ventolin Hfa Inhaler] 2 puff INHALATION RT-QID #1 inhaler Ascorbic Acid [Vitamin C] 500 mg PO BID #30 tab Discharge Medication List Albuterol Inhaler [Ventolin Hfa Inhaler] 2 puff INHALATION RT-QID #1 inhaler 07/13/20 [Rx] Ascorbic Acid [Vitamin C] 500 mg PO BID #30 tab 07/13/20 [Rx] Famotidine [Pepcid] 20 mg PO DAILY #10 tab 07/13/20 [Rx] Zinc Sulfate [Orazinc] 220 mg PO DAILY #20 cap 07/13/20 [Rx] dexAMETHasone [Hexadrol] 4 mg PO DAILY #2 tab 07/13/20 [Rx] Follow up Appointment(s)/Referral(s): Vicki Ross DO [Primary Care Provider] - 3 Days Patient Instructions/Handouts: Pneumonia (DC) Activity/Diet/Wound Care/Special Instructions: Patient requires home oxygen at discharge for hypoxia related to COVID-19 Discharge Disposition: HOME SELF-CARE
--- NOTE | 2020-07-13 15:19 | P.PN ---
Subjective Progress Note Date: 07/13/20 Principal diagnosis: Covid 19 pneumonia This is a very pleasant 55-year-old gentleman who was admitted yesterday with CoVID 19 pneumonia. He had presented with increasing shortness of breath cough congestion fever. Stating his temperature was up to 105. He was having muscle aches and joint pain as well. No nausea vomiting or diarrhea. No abdominal pain. He is seen again today in follow-up. He is awake and alert in no acute distress. He is still requiring 15 L partial rebreather mask to maintain O2 saturation in the low 90s. Febrile with a temperature of 100.1. He modynamically stable. This is day #2 of Remdesivir. He is continued on dexamethasone, Lovenox, zinc, vitamin C, vitamin D, melatonin, Pepcid. The patient is seen today 07/07/2020 in follow-up on the selective care unit. He is still having significant hypoxemia. He did drop to 85% on 15 L high flow nasal cannula. He was converted to the AirVo at 60 L and 94% FiO2. O2 saturation on the 90s. Currently laying in a prone position. This is day 3 of his Remdesivir. He also is to receive convalescent plasma. He is continued on dexamethasone, Lovenox, zinc, vitamin C, vitamin D, melatonin, Pepcid. Chest x- ray continues to show bilateral pneumonia. White count 6.5. Hemoglobin 1415.0. D-dimer 1.25. Sodium 136 Potassium 3.8 creatinine 0.82. LDH 1091. C- reactive protein 85.6. The patient is seen today 07/08/2020 in follow-up on the selective care unit. He is awake and alert in no acute distress. He is currently leaning laying prone on his bed. He states he is breathing a bit easier today compared to yesterday. He is on day 4 of his Remdesivir treatment. He did receive con valescent plasma. Remains on the AirVo high flow oxygen device at 55 L and 93% FiO2. O2 saturation at 93% currently. He is continued on dexamethasone, Lovenox, zinc, vitamin C, vitamin D, melatonin, Pepcid. D-dimer 1.02. LDH 1105. C-reactive protein 52.1. On 07/09/2020 the patient is being seen for a follow-up. The patient is on the fifth day of Remdesivir treatment regarding the Covid 19 related pneumonia. The patient also received convalescent plasma. The patient is currently on high flow oxygen with a flow of 55 L and FiO2 of 70%. Pulse ox in the order of 97%. He is feeling better compared to yesterday. FiO2 has been gradually wean down as noted. He is afebrile. Hemodynamically stable. No hemoptysis. No pleurisy. His d-dimer is at 1.02. His LDH level is 08/24/2004 and a CRP is down to 52.1. Rest of the electrodes are all stable. The patient is on Decadron. The patient is afebrile for now. On 07/10/2020 patient seen in follow-up on selective care unit, he remains on high flow oxygen, in the form of Airvo at 50 L, and FiO2 of 67% and this pulse ox is 92%, patient has been self-proning, he is awake and alert, appears to be in no acute distress, he is status post Remdesivir, and at one unit of convalescent plasma. His LDH and CRP remain elevated, pro-calcitonin level was negative, d-dimer is 1.02, patient is on prophylactic dose of Lovenox, blood cultures have shown no growth. He remains on Decadron, Lovenox, Pepcid, vitamin D, melatonin, and zinc The patient is seen today 07/11/2020 in follow-up on the selective care unit. He is currently sitting up in a chair at the bedside. Awake and alert in no acute distress. Breathing quite a bit easier today compared to yesterday. He remains on the airflow 40 liters and 50% FiO2 and maintaining O2 saturations in the 90s. He still has some dyspnea with minimal exertion. Continues with a nonproductive cough. Blood cultures reveal no growth. He has completed Remdesivir. He did receive convalescent plasma. He is continued on dexamethasone, Lovenox, zinc, vitamin C, vitamin D, melatonin, Pepcid. The patient is seen today 07/12/2020 follow-up on the selective care unit. He is currently sitting up in bed. Awake and alert in no acute distress. Feeling better each day. Less short of breath. Less cough and congestion. Currently on airflow at 35 L and 40% FiO2. He is afebrile. Hemodynamically stable. Blood cultures reveal no growth. D-dimer 1.83. LDH 820. C-reactive protein. Inflammatory markers improving. He remains on vitamin C, vitamin D, dexamethasone, Lovenox, Pepcid, melatonin, zinc. Chest x-ray continues to revealed diffuse lung markings compatible with atypical pneumonia. Continues with opacities more so on the left lung base. The patient is seen today 07/13/2020 in follow-up on the selective care unit. He is currently sitting up in a chair at the bedside. Awake and alert in no acute distress. He is feeling nearly back to his baseline. Still somewhat weak . Somewhat dyspneic on exertion. Anxious to go home. Blood cultures reveal no growth. He remains on vitamin C, vitamin D, dexamethasone, Lovenox, Pepcid, melatonin, zinc. Objective - Vital Signs Vital signs: Vital Signs Temp 98.2 F 07/13/20 04:00 Pulse 82 07/13/20 12:00 Resp 19 07/13/20 12:00 BP 125/72 07/13/20 12:00 Pulse Ox 94 L 07/13/20 12:00 Intake & Output 07/12/20 07/13/20 07/13/20 18:59 06:59 18:59 Intake Total 480 237 240 Balance 480 237 240 Weight 75 kg 76 kg Intake: Oral 480 237 240 Other: # Voids 3 1 - Exam GENERAL EXAM: Alert, pleasant 55-year-old gentleman sitting up in a chair at the bedside, on room air, fairly comfortable in no apparent distress. HEAD: Normocephalic. EYES: Normal reaction of pupils, equal size. NOSE: Clear with pink turbinates. THROAT: No erythema or exudates. NECK: No masses, no JVD. CHEST: No chest wall deformity. LUNGS: Equal air entry with few bilateral scattered rhonchi. CVS: S1 and S2 normal with no audible murmur, regular rhythm. ABDOMEN: No hepatosplenomegaly, normal bowel sounds, no guarding or rigidity. SPINE: No scoliosis or deformity SKIN: No rashes CENTRAL NERVOUS SYSTEM: No focal deficits, tone is normal in all 4 extremities. EXTREMITIES: There is no peripheral edema. No clubbing, no cyanosis. Peripheral pulses are intact. - Labs CBC & Chem 7: 07/07/20 08:17 07/07/20 08:17 Labs: Microbiology - Last 24 Hours (Table) 07/07/20 08:17 Blood Culture - Final Blood No Growth after 144 hours Assessment and Plan Assessment: 1 Acute hypoxemic respiratory failure secondary to acute CoVID 19 pneumonia. Completed Remdesivir, received convalescent plasma 2 Febrile illness secondary to above, recovered 3 Elevated inflammatory markers secondary to above much improved 4 History of sarcoidosis with previous lung biopsy 5 Chronic tobacco dependence Plan: The patient was seen and evaluated by Dr. Mann Doing well on room air Cleared for discharge from the pulmonary standpoint Complete a course of 10 days of dexamethasone Continue self isolation Follow-up with his PCP I, the cosigning physician, performed a history & physical examination of the patient. Lungs sounds with bilateral scattered rhonchi. Maintaining good O2 s aturations in the 90s on room air. I discussed the assessment and plan of care with my nurse practitioner, Camille Erickson. I attest to the above note as dictated by her.
== END 2020-07-13 15:07 | disposition home or self-care (01) | DRG 177 ==
LOC: EC 09:26 → 3SCARD 10:53 → 3NCARDOBS 07-10 20:26 → 3SCARD 07-13 01:59
PROVIDERS: ADMIT Internal Medicine; ATTEND Internal Medicine
PROC: XW033E5 Introduction of Remdesivir Anti-infective into Peripheral Vein, Percutaneous Approach, New Technology Group 5 (ICD-10-PCS; 2020-07-05)
PROC: XW13325 Transfusion of Convalescent Plasma (Nonautologous) into Peripheral Vein, Percutaneous Approach, New Technology Group 5 (ICD-10-PCS; principal; 2020-07-07)
DX: U07.1 COVID-19 (principal); J12.89 Other viral pneumonia; J96.01 Acute respiratory failure with hypoxia; E87.1 Hypo-osmolality and hyponatremia; D86.9 Sarcoidosis, unspecified; F17.200 Nicotine dependence, unspecified, uncomplicated; E87.70 Fluid overload, unspecified; Z71.3 Dietary counseling and surveillance; Z98.890 Other specified postprocedural states; Z88.6 Allergy status to analgesic agent; Z80.9 Family history of malignant neoplasm, unspecified
CPT/HCPCS: 36415; 71045; 80048; 80053; 82728; 83605; 83615; 83735; 84145; 85025; 85379; 85610; 85730; 86140; 86850; 86900; 86901; 87040; 87635; 93005; 94640; 94760; 99285

== ENCOUNTER 2020-08-16 14:11 | Emergency (ER) | payer BC ==
[2020-08-16 14:15] VITALS: BP 153/85; PULSE 80; RESP 18; TEMP 98
[2020-08-16] MEDS ORDERED: FLUORESCEIN STRIPS 1 MG STRIP BOTH EYES ONE (14:26)
[2020-08-16] MEDS ORDERED: PROPARACAINE 0.5% OPHTH DROPS 15 ML BTL RIGHT EYE STA (14:26)
--- NOTE | 2020-08-16 14:33 | ED ---
Eye Problem HPI - General Chief complaint: Eye Problems Stated complaint: RT eye pain Time Seen by Provider: 08/16/20 14:26 Source: patient Mode of arrival: ambulatory Limitations: no limitations - History of Present Illness Initial comments: 55-year-old male presenting to emergency Department with a chief complaint of right eye pain. Patient states yesterday he was working under his car when some debris fell onto his face. Patient states afterwards he developed discomfort in the right eye. States thereafter there was also development of redness and clear watery discharge. Patient states there is some pain but denies any pain with extraocular movements. Does report some blurry vision but he believes that is secondary to the excessive tearing of the eye. Denies any periorbital pain erythema or swelling. Does not wear contact lenses. Tetanus is up-to-date. - Related Data Previous Rx's Medication Instructions Recorded Albuterol Inhaler [Ventolin Hfa 2 puff INHALATION RT-QID #1 inhaler 07/13/20 Inhaler] Ascorbic Acid [Vitamin C] 500 mg PO BID #30 tab 07/13/20 Famotidine [Pepcid] 20 mg PO DAILY #10 tab 07/13/20 Zinc Sulfate [Orazinc] 220 mg PO DAILY #20 cap 07/13/20 dexAMETHasone [Hexadrol] 4 mg PO DAILY #2 tab 07/13/20 Allergies Allergy/AdvReac Type Severity Reaction Status Date / Time aspirin Allergy Rash/Hives Verified 08/16/20 14:15 Review of Systems ROS Statement: Those systems with pertinent positive or pertinent negative responses have been documented in the HPI. ROS Other: All systems not noted in ROS Statement are negative. Past Medical History Past Medical History: No Reported History Additional Past Medical History / Comment(s): sacroidosis History of Any Multi-Drug Resistant Organisms: None Reported Past Surgical History: No Surgical Hx Reported Additional Past Surgical History / Comment(s): lung biopsy Past Psychological History: No Psychological Hx Reported Smoking Status: Never smoker Past Alcohol Use History: Occasional Past Drug Use History: None Reported - Past Family History Father Family Medical History: Cancer General Exam Limitations: no limitations General appearance: alert, in no apparent distress Head exam: Present: atraumatic, normocephalic, normal inspection Eye exam: Present: normal appearance, PERRL, EOMI, conjunctival injection (Right eye), other (Foreign body noted on the right eye near 3:00. Fluorescein stain reveals no Gabby sign.). Absent: nystagmus, periorbital swelling, periorbital tenderness Pupils: Present: normal accommodation ENT exam: Present: normal exam, normal oropharynx, mucous membranes moist, TM's normal bilaterally, normal external ear exam Neck exam: Present: normal inspection, full ROM. Absent: tenderness Respiratory exam: Present: normal lung sounds bilaterally. Absent: respiratory distress, wheezes, rales, rhonchi, stridor Cardiovascular Exam: Present: regular rate, normal rhythm, normal heart sounds. Absent: systolic murmur, diastolic murmur Extremities exam: Present: normal inspection, full ROM, normal capillary refill. Absent: tenderness, pedal edema, joint swelling Back exam: Present: normal inspection, full ROM. Absent: tenderness, CVA tenderness (R), CVA tenderness (L) Neurological exam: Present: alert, oriented X3, normal gait Psychiatric exam: Present: normal affect, normal mood. Absent: depressed, agitated Skin exam: Present: warm, dry, intact, normal color Course Vital Signs 08/16/20 14:12 Temperature 98.0 F Pulse Rate 80 Respiratory 18 Rate Blood Pressure 153/85 O2 Sat by Pulse 99 Oximetry Procedures - Forgein Body Removal Eye Site: Right Anesthetic Used: Proparacaine Eye Exam Technique: Howard Lamp, Fluorescein Foreign Body Suspected: Metal Forgein Body Removal Technique: Cotton Swab, Algerbrush Remaining Debris: No Patient Tolerated: no complications Medical Decision Making - Medical Decision Making 55-year-old male presenting to the emergency department with a chief complaint of right eye pain. On physical examination patient did have a small foreign body likely a metal debris after she was working under a car yesterday. The foreign body was roughly 1 mm in size located at 3:00 in the right eye. I was able to remove it after getting proparacaine. I use an auger brush and a cotton swab. Fluorescein stain revealed a corneal abrasion at the site of the foreign body. His tetanus is up-to-date. Negative Gabby sign. No periorbital swe lling or erythema. There is some conjunctival injections. Patient started on ofloxacin ophthalmic drops. Also given Tylenol 3 starter pack secondary to the pain after using the auger brush. Patient was advised to follow-up with ophthalmology. Strict return parameters were thoroughly discussed the patient was understanding and agreeable. Case discussed with physician. Disposition Clinical Impression: Foreign body of right eye Disposition: HOME SELF-CARE Condition: Stable Instructions (If sedation given, give patient instructions): Eye Foreign Body (ED) Additional Instructions: Follow-up with an parts salesperson. Take medications as directed. Do not drive apprehend machine when taking Tylenol 3. Return to emergency department if symptoms worsen. Is patient prescribed a controlled substance at d/c from ED?: No Referrals: Vicki Ross DO [Primary Care Provider] - 1-2 days Mathieu Ordonez MD [STAFF PHYSICIAN] - 1-2 days Time of Disposition: 15:10
[2020-08-16] MEDS ORDERED: GENTAMICIN 0.3% OPHTH DROPS 5 ML BTL RIGHT EYE STA (15:06)
[2020-08-16] MEDS ORDERED: ACET/COD 300 MG/30 MG STARTER PACK 6 TAB BTL PO STA (15:06)
[2020-08-16] MEDS ORDERED: OFLOXACIN 0.3% OPHTH DROPS 5 ML BOTTLE RIGHT EYE ONE (15:15)
[2020-08-16] MEDS ORDERED: OFLOXACIN 0.3% OPHTH DROPS 5 ML BOTTLE RIGHT EYE SCH (18:00)
== END 2020-08-16 15:37 | disposition home or self-care (01) ==
LOC: EC 14:11
DX: T15.01XA Foreign body in cornea, right eye, initial encounter (principal); Z88.6 Allergy status to analgesic agent; X58.XXXA Exposure to other specified factors, initial encounter
CPT/HCPCS: 65220; 99283

== ENCOUNTER 2021-01-06 13:25 | Emergency (ER) | payer BC ==
[2021-01-06 13:31] VITALS: TEMP 97.8
--- NOTE | 2021-01-06 14:07 | ED ---
General Adult HPI - General Chief complaint: Recheck/Abnormal Lab/Rx Stated complaint: Lips/Hand Tingling,Nausea Time Seen by Provider: 01/06/21 13:40 Source: patient, RN notes reviewed, old records reviewed Mode of arrival: wheelchair Limitations: no limitations - History of Present Illness Initial comments: 55-year-old male presenting for evaluation of weakness, fatigue, and it exertional dyspnea. Patient is healthy. He was infected with coronavirus in June and since that time he has not felt well. He denies current fevers or cough. He denies central chest pain. He does report easy fatigue and exertional dyspnea. He also complains of some lip tingling in bilateral hand tingling. No current prescribed medications. No focal numbness or weakness. No headache. - Related Data Previous Rx's Medication Instructions Recorded Albuterol Inhaler [Ventolin Hfa 2 puff INHALATION RT-QID #1 inhaler 07/13/20 Inhaler] Ascorbic Acid [Vitamin C] 500 mg PO BID #30 tab 07/13/20 Famotidine [Pepcid] 20 mg PO DAILY #10 tab 07/13/20 Zinc Sulfate [Orazinc] 220 mg PO DAILY #20 cap 07/13/20 dexAMETHasone ORAL [Hexadrol] 4 mg PO DAILY #2 tab 07/13/20 Allergies Allergy/AdvReac Type Severity Reaction Status Date / Time aspirin Allergy Rash/Hives Verified 01/06/21 13:27 Review of Systems ROS Statement: Those systems with pertinent positive or pertinent negative responses have been documented in the HPI. ROS Other: All systems not noted in ROS Statement are negative. Past Medical History Past Medical History: No Reported History Additional Past Medical History / Comment(s): sacroidosis History of Any Multi-Drug Resistant Organisms: None Reported Past Surgical History: No Surgical Hx Reported Additional Past Surgical History / Comment(s): lung biopsy Past Psychological History: No Psychological Hx Reported Smoking Status: Never smoker Past Alcohol Use History: Occasional Past Drug Use History: None Reported - Past Family History Father Family Medical History: Cancer General Exam Limitations: no limitations General appearance: alert, in no apparent distress Head exam: Present: atraumatic, normocephalic Eye exam: Present: normal appearance, PERRL ENT exam: Present: normal exam Neck exam: Present: normal inspection. Absent: tenderness, meningismus Respiratory exam: Present: normal lung sounds bilaterally. Absent: respiratory distress, wheezes Cardiovascular Exam: Present: regular rate, normal rhythm GI/Abdominal exam: Present: soft. Absent: distended, tenderness, guarding Extremities exam: Present: normal inspection, normal capillary refill. Absent: pedal edema, calf tenderness Neurological exam: Present: alert, oriented X3, CN II-XII intact. Absent: motor sensory deficit Psychiatric exam: Present: normal affect, normal mood Skin exam: Present: warm, dry, intact. Absent: cyanosis, diaphoretic Course Vital Signs 01/06/21 13:27 Temperature 97.8 F Pulse Rate 79 Respiratory 18 Rate Blood Pressure 127/79 O2 Sat by Pulse 98 Oximetry EKG Findings - EKG Comments: EKG Findings:: EKG: Normal sinus rhythm, rate of 71, OK interval 148, QRS duration 84, QTC 425, no ST segment elevation, S1 Q3 T3 pattern Medical Decision Making - Medical Decision Making EKG showing sinus rhythm, chest x-ray showing improved aeration, nearly completely resolved or opacification coronavirus pneumonia. Patient has a normal CBC, stable hemoglobin, no leukocytosis, normal CMP, negative d-dimer, negative troponin. He is reassured with this testing. He will continue to follow as an outpatient he will schedule appointment with his primary care physician and his senior clinical sas programmer. Return parameters discussed. - Lab Data Result diagrams: 01/06/21 13:58 01/06/21 13:58 Lab Results 01/06/21 01/06/21 01/06/21 Range/Units 13:58 13:58 13:58 WBC 5.5 (3.8-10.6) k/uL RBC 4.95 (4.30-5.90) m/uL Hgb 15.5 (13.0-17.5) gm/dL Hct 43.3 (39.0-53.0) % MCV 87.5 (80.0-100.0) fL MCH 31.3 (25.0-35.0) pg MCHC 35.8 (31.0-37.0) g/dL RDW 12.6 (11.5-15.5) % Plt Count 248 (150-450) k/uL MPV 6.8 Neutrophils % 49 % Lymphocytes % 40 % Monocytes % 7 % Eosinophils % 2 % Basophils % 1 % Neutrophils # 2.7 (1.3-7.7) k/uL Lymphocytes # 2.2 (1.0-4.8) k/uL Monocytes # 0.4 (0-1.0) k/uL Eosinophils # 0.1 (0-0.7) k/uL Basophils # 0.0 (0-0.2) k/uL PT 10.1 (9.0-12.0) sec INR 0.9 (<1.2) APTT 23.6 (22.0-30.0) sec D-Dimer 0.21 (<0.60) mg/L FEU Sodium 140 (137-145) mmol/L Potassium 4.1 (3.5-5.1) mmol/L Chloride 107 (98-107) mmol/L Carbon Dioxide 22 (22-30) mmol/L Anion Gap 11 mmol/L BUN 18 (9-20) mg/dL Creatinine 0.96 (0.66-1.25) mg/dL Est GFR (CKD-EPI)AfAm >90 (>60 ml/min/1.73 sqM) Est GFR (CKD-EPI)NonAf >90 (>60 ml/min/1.73 sqM) Glucose 127 H (74-99) mg/dL Calcium 9.6 (8.4-10.2) mg/dL Magnesium 2.2 (1.6-2.3) mg/dL Total Bilirubin 0.7 (0.2-1.3) mg/dL AST 26 (17-59) U/L ALT 25 (4-49) U/L Alkaline Phosphatase 92 (38-126) U/L Troponin I (0.000-0.034) ng/mL Total Protein 7.5 (6.3-8.2) g/dL Albumin 4.8 (3.5-5.0) g/dL 01/06/21 Range/Units 13:58 WBC (3.8-10.6) k/uL RBC (4.30-5.90) m/uL Hgb (13.0-17.5) gm/dL Hct (39.0-53.0) % MCV (80.0-100.0) fL MCH (25.0-35.0) pg MCHC (31.0-37.0) g/dL RDW (11.5-15.5) % Plt Count (150-450) k/uL MPV Neutrophils % % Lymphocytes % % Monocytes % % Eosinophils % % Basophils % % Neutrophils # (1.3-7.7) k/uL Lymphocytes # (1.0-4.8) k/uL Monocytes # (0-1.0) k/uL Eosinophils # (0-0.7) k/uL Basophils # (0-0.2) k/uL PT (9.0-12.0) sec INR (<1.2) APTT (22.0-30.0) sec D-Dimer (<0.60) mg/L FEU Sodium (137-145) mmol/L Potassium (3.5-5.1) mmol/L Chloride (98-107) mmol/L Carbon Dioxide (22-30) mmol/L Anion Gap mmol/L BUN (9-20) mg/dL Creatinine (0.66-1.25) mg/dL Est GFR (CKD-EPI)AfAm (>60 ml/min/1.73 sqM) Est GFR (CKD-EPI)NonAf (>60 ml/min/1.73 sqM) Glucose (74-99) mg/dL Calcium (8.4-10.2) mg/dL Magnesium (1.6-2.3) mg/dL Total Bilirubin (0.2-1.3) mg/dL AST (17-59) U/L ALT (4-49) U/L Alkaline Phosphatase (38-126) U/L Troponin I <0.012 (0.000-0.034) ng/mL Total Protein (6.3-8.2) g/dL Albumin (3.5-5.0) g/dL Disposition Clinical Impression: Dyspnea, Paresthesia Disposition: HOME SELF-CARE Condition: Good Instructions (If sedation given, give patient instructions): Dyspnea (ED), Paresthesia (ED) Additional Instructions: Please follow up with your primary care physician and your senior clinical sas programmer. Please return with any worsening or changing symptoms. Is patient prescribed a controlled substance at d/c from ED?: No Referrals: Nonstaff,Physician [Primary Care Provider] - 1-2 days Time of Disposition: 14:49
--- NOTE | 2021-01-06 14:24 | XR ---
EXAMINATION TYPE: XR chest 2V DATE OF EXAM: 01/06/2021 COMPARISON: 07/12/2020 HISTORY: Chest pain TECHNIQUE: FINDINGS: Heart and mediastinum are normal. Lungs are clear. Diaphragm is normal. Bony thorax is inta ct. Pulmonary vascularity is normal. IMPRESSION: Normal chest. There is clearing of the extensive pulmonary infiltrates compared to old ex am.
[2021-01-06 14:25] LABS: ALT 25 U/L (4-49); AST 26 U/L (17-59); African American GFR (CKD) >90 (>60 ml/min/1.73 sqM); Albumin 4.8 g/dL (3.5-5.0); Alkaline Phosphatase 92 U/L (38-126); Anion Gap 11 mmol/L; Blood Urea Nitrogen 18 mg/dL (9-20); Calcium 9.6 mg/dL (8.4-10.2); Carbon Dioxide 22 mmol/L (22-30); Chloride 107 mmol/L (98-107); Glucose 127 mg/dL (74-99); Magnesium 2.2 mg/dL (1.6-2.3); Non-African American GFR(CKD) >90 (>60 ml/min/1.73 sqM); Potassium 4.1 mmol/L (3.5-5.1); Sodium 140 mmol/L (137-145); Total Bilirubin 0.7 mg/dL (0.2-1.3); Total Protein 7.5 g/dL (6.3-8.2)
[2021-01-06 14:33] LABS: D-Dimer 0.21 mg/L FEU (<0.60); INR 0.9 (<1.2); Partial Thromboplastin Time 23.6 sec (22.0-30.0); Prothrombin Time 10.1 sec (9.0-12.0)
[2021-01-06 14:34] LABS: Basophils % (A) 1 %; Eosinophils # (A) 0.1 k/uL (0-0.7); Eosinophils % (A) 2 %; HCT 43.3 % (39.0-53.0); HGB 15.5 gm/dL (13.0-17.5); Lymphocytes # (A) 2.2 k/uL (1.0-4.8); Lymphocytes % (A) 40 %; MCH 31.3 pg (25.0-35.0); MCHC 35.8 g/dL (31.0-37.0); MCV 87.5 fL (80.0-100.0); Mean Platelet Volume 6.8; Monocytes # (A) 0.4 k/uL (0-1.0); Monocytes % (A) 7 %; Neutrophils # (A) 2.7 k/uL (1.3-7.7); Neutrophils % (A) 49 %; Platelet Count 248 k/uL (150-450); RBC 4.95 m/uL (4.30-5.90); RDW 12.6 % (11.5-15.5); WBC 5.5 k/uL (3.8-10.6)
[2021-01-06 14:54] LABS: Appearance,Urine Clear (Clear); Bilirubin,Urine Negative (Negative); Blood,Urine Negative (Negative); Color,Urine Yellow; Glucose,Urine (UA) Negative (Negative); Ketones,Urine Negative (Negative); Leukocyte Esterase,Urine Negative (Negative); Nitrite,Urine Negative (Negative); Protein,Urine Trace (Negative); Specific Gravity,Urine 1.032 (1.001-1.035)
[2021-01-06 15:11] VITALS: BP 121/68; PULSE 80; RESP 16
== END 2021-01-06 15:11 | disposition home or self-care (01) ==
LOC: EC 13:25
DX: R06.00 Dyspnea, unspecified (principal); R20.2 Paresthesia of skin
CPT/HCPCS: 36415; 71046; 80053; 81003; 83735; 84484; 85025; 85379; 85610; 85730; 93005; 99285

== ENCOUNTER 2022-02-26 13:23 | Emergency (ER) | payer BC ==
[2022-02-26 13:28] VITALS: BP 133/86; PULSE 70; RESP 18; TEMP 97.9
[2022-02-26] MEDS ORDERED: SILVER sulfADIAZINE Cream 400 GM 1 APPLIC APPLIC TOPICAL STA (14:57)
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
--- NOTE | 2022-02-26 15:41 | XR ---
EXAMINATION TYPE: XR humerus RT, XR forearm RT DATE OF EXAM: 02/26/2022 CLINICAL HISTORY: [place] and swelling. TECHNIQUE: Two views of the right forearm and humerus are obtained. COMPARISON: None. FINDINGS: There is no acute fracture or dislocation seen in the right humerus. The right shoulder j oint appears within normal limits. The overlying soft tissue appears within normal limits. No acute displaced fracture in the right radius or ulna. Moderate spurring from the olecranon. There is a prominent spur and narrowing at articulation of the medial epicondyle distal humerus with the me dial aspect of the ulna. Incomplete evaluation of the right wrist joint on 2 views. Overlying soft ti ssue is unremarkable. No suspicious bony destruction is identified. IMPRESSION: As above.
== END 2022-02-26 16:26 | disposition home or self-care (01) ==
LOC: EC 13:23
DX: T22.211A Burn of second degree of right forearm, initial encounter (principal); Z88.6 Allergy status to analgesic agent; W40.8XXA Explosion of other specified explosive materials, initial encounter; Y92.099 Unspecified place in other non-institutional residence as the place of occurrence of the external cause
CPT/HCPCS: 16020; 99284

== ENCOUNTER 2023-05-21 10:34 | Inpatient (IN) | payer BC ==
--- NOTE | 2023-05-21 11:24 | ED ---
Extremity Problem HPI - General Chief complaint: Extremity Injury, Upper Stated complaint: Rt hand thumb infection Time Seen by Provider: 05/21/23 11:13 Source: patient, RN notes reviewed Mode of arrival: ambulatory Limitations: no limitations - History of Present Illness Initial comments: This is a 57-year-old male who presents to the emergency department for an infection to the right thumb. Approximately 6 days ago, the patient sustained an injury to the right thumb with a saw. Patient was evaluated here for this 2 days ago, and started on Keflex. He states that since then, the pain, swelling, and redness have gotten worse. He has also now started to notice drainage coming from the small laceration on the thumb. Denies any fevers. Denies any fevers, chills, sore throat, cough, dyspnea, chest pain, palpitations, abdominal pain, nausea, vomiting, diarrhea, back pain, or headaches. - Related Data Home Medications Medication Instructions Recorded Confirmed Glucos Sul 2Kcl/MSM/Chond/C/Mn 1 cap PO DAILY 01/06/21 05/21/23 [Glucosamine Chondroitin Cap] Ibuprofen [Motrin] 800 mg PO Q8H PRN 05/21/23 05/21/23 Vitamin C(Unknown Dose) 1 tab PO DAILY 05/21/23 05/21/23 Vitamin D3(Unknown Dose) 1 tab PO DAILY 05/21/23 05/21/23 Previous Rx's Medication Instructions Recorded Cephalexin [Keflex] 500 mg PO Q6HR 7 Days #28 cap 05/19/23 Allergies Allergy/AdvReac Type Severity Reaction Status Date / Time aspirin Allergy Rash/Hives Verified 05/21/23 14:09 Review of Systems ROS Statement: Those systems with pertinent positive or pertinent negative responses have been documented in the HPI. ROS Other: All systems not noted in ROS Statement are negative. Past Medical History Past Medical History: No Reported History Additional Past Medical History / Comment(s): sacroidosis History of Any Multi-Drug Resistant Organisms: None Reported Past Surgical History: No Surgical Hx Reported Additional Past Surgical History / Comment(s): lung biopsy Past Psychological History: No Psychological Hx Reported Smoking Status: Never smoker Past Alcohol Use History: Occasional Past Drug Use History: None Reported - Past Family History Father Family Medical History: Cancer General Exam Limitations: no limitations General appearance: alert, in no apparent distress Head exam: Present: atraumatic, normocephalic, normal inspection Respiratory exam: Present: normal lung sounds bilaterally. Absent: respiratory distress, wheezes, rales, rhonchi, stridor Cardiovascular Exam: Present: regular rate, normal rhythm, normal heart sounds. Absent: systolic murmur, diastolic murmur, rubs, gallop, clicks Extremities exam: Present: other (Swelling, erythema, induration, and tenderness to the right thumb. 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 Was pt. sent in by a medical professional or institution? @ -No Did you speak to anyone other than the patient for history? @ -No Did you review nursing and triage notes? @ -Yes, and I agree, it is accurate with regards to the patient's symptoms. Were old charts reviewed? @ -No Differential Diagnosis? @ -Differential Thumb Pain/Swelling: Cellulitis, gout, abscess, this is not meant to be an all-inclusive list. EKG interpreted by me (3pts min.)? @ -Not obtained X-rays interpreted by me (1pt min.)? @ -X-ray of the right thumb obtained. My interpretation identifies soft tissue swelling. CT interpreted by me (1pt min.)? @ -Not obtained U/S interpreted by me (1pt. min.)? @ -Not obtained What testing was considered but not performed? (CT, X-rays, U/S, labs)? Why? @ -None What meds were considered but not given? Why? @ -None Did you discuss the management of the patient with other professionals? @ -Yes, Dr. Palm, who accepts the patient for admission. Did you reconcile home meds? @ -No Was smoking cessation discussed for >3mins.? @ -No Was critical care preformed (if so, how long)? @ -No Were there social determinants of health that impacted care today? How? (Homele ssness, low income, unemployed, alcoholism, drug addiction, transportation, low edu. Level, literacy, decrease access to med. care, detention, rehab)? @ -No Was there de-escalation of care discussed even if they declined? (Discuss DNR or withdrawal of care, Hospice)? @ -No What co-morbidities impacted this encounter? (DM, HTN, Smoking, COPD, CAD, Cancer, CVA, Hep., AIDS, mental health diagnosis, sleep apnea, morbid obesity)? @ -None Was patient admitted / discharged? @ -Admitted. Lab work obtained revealing elevated inflammatory markers with an ESR of 36 and CRP of 6.8. X-ray of the right thumb obtained revealing soft tissue swelling without evidence of osseous destruction. I personally evaluated the patient 2 days ago, and on exam this has gotten substantially worse in terms of swelling, induration, and tenderness. Drainage was also not present 2 days ago. Patient admitted to medicine for failure of outpatient management with regards to cellulitis of the right thumb. Consult placed for infectious disease and orthopedics for possible debridement. He was started on IV vancomycin and cefepime. Blood cultures obtained as well. Undiagnosed new problem with uncertain prognosis? @ -None Drug Therapy requiring intensive monitoring for toxicity (Heparin, Nitro, Insulin, Cardizem)? @ -None Were any procedures done? @ -None Diagnosis/symptom? @ -Cellulitis right thumb, failure of outpatient management Acute, or Chronic, or Acute on Chronic? @ -Acute Uncomplicated (without systemic symptoms) or Complicated (systemic symptoms)? @ -Uncomplicated Side effects of treatment? @ -None Exacerbation, Progression, or Severe Exacerbation] @ -Progression Poses a threat to life or bodily function? @ -Yes, this could be a digit threatening injury. This case was discussed in detail with the attending ED physician, Dr. Fitzpatrick. Presentation, findings, and treatment plan discussed in detail as well. - Lab Data Result diagrams: 05/21/23 11:26 05/21/23 11:26 Lab Results 05/21/23 05/21/23 05/21/23 Range/Units 11:26 11:26 11:26 WBC 8.4 (3.8-10.6) k/uL RBC 4.62 (4.30-5.90) m/uL Hgb 14.3 (13.0-17.5) gm/dL Hct 40.8 (39.0-53.0) % MCV 88.4 (80.0-100.0) fL MCH 31.1 (25.0-35.0) pg MCHC 35.1 (31.0-37.0) g/dL RDW 12.4 (11.5-15.5) % Plt Count 244 (150-450) k/uL MPV 7.7 Neutrophils % 64 % Lymphocytes % 21 % Monocytes % 9 % Eosinophils % 3 % Basophils % 0 % Neutrophils # 5.4 (1.3-7.7) k/uL Lymphocytes # 1.7 (1.0-4.8) k/uL Monocytes # 0.8 (0-1.0) k/uL Eosinophils # 0.2 (0-0.7) k/uL Basophils # 0.0 (0-0.2) k/uL ESR 36 H (0-15) mm/hr Sodium 135 L (137-145) mmol/L Potassium 4.7 (3.5-5.1) mmol/L Chloride 105 (98-107) mmol/L Carbon Dioxide 19 L (22-30) mmol/L Anion Gap 11 mmol/L BUN 11 (9-20) mg/dL Creatinine 0.77 (0.66-1.25) mg/dL Est GFR (CKD-EPI)AfAm >90 (>60 ml/min/1.73 sqM) Est GFR (CKD-EPI)NonAf >90 (>60 ml/min/1.73 sqM) Glucose 88 (74-99) mg/dL Plasma Lactic Acid Wilder 1.1 (0.7-2.0) mmol/L Calcium 9.5 (8.4-10.2) mg/dL Total Bilirubin 0.9 (0.2-1.3) mg/dL AST 41 (17-59) U/L ALT 50 H (4-49) U/L Alkaline Phosphatase 58 (38-126) U/L C-Reactive Protein 6.8 H (<1.0) mg/dL Total Protein 7.7 (6.3-8.2) g/dL Albumin 4.4 (3.5-5.0) g/dL - Radiology Data Radiology results: report reviewed, image reviewed Disposition Clinical Impression: Cellulitis of right thumb, Failure of outpatient treatment Disposition: ADMITTED IP TO THIS HOSP
--- NOTE | 2023-05-21 12:08 | XR ---
EXAMINATION TYPE: XR finger RT DATE OF EXAM: 05/21/2023 12:02 PM INDICATION: Patient age:Male; 57 years old; Reason for study: Right thumb infection; PHH. COMPARISON: Right finger radiographs 05/19/2023 TECHNIQUE: Frontal, lateral and oblique views of the first digit of the right hand were obtained. FINDINGS: Normal alignment of the visualized joints. No acute fracture or dislocation. No osseous ero sions. Similar small calcification along the distal interphalangeal joint region with smooth margin l ikely representing chronic avulsion. Similar soft tissue prominence over the dorsal thumb. No radiopa que foreign body. IMPRESSION: Overall similar examination from 05/19/2023 with soft tissue swelling of the dorsal thumb. No radiopaq ue foreign body or osseous erosions.
[2023-05-21 12:16] LABS: Basophils % (A) 0 %; Eosinophils # (A) 0.2 k/uL (0-0.7); Eosinophils % (A) 3 %; HCT 40.8 % (39.0-53.0); HGB 14.3 gm/dL (13.0-17.5); Lymphocytes # (A) 1.7 k/uL (1.0-4.8); Lymphocytes % (A) 21 %; MCH 31.1 pg (25.0-35.0); MCHC 35.1 g/dL (31.0-37.0); MCV 88.4 fL (80.0-100.0); Mean Platelet Volume 7.7; Monocytes # (A) 0.8 k/uL (0-1.0); Monocytes % (A) 9 %; Neutrophils # (A) 5.4 k/uL (1.3-7.7); Neutrophils % (A) 64 %; Platelet Count 244 k/uL (150-450); RBC 4.62 m/uL (4.30-5.90); RDW 12.4 % (11.5-15.5); WBC 8.4 k/uL (3.8-10.6)
[2023-05-21 12:33] LABS: ALT 50 U/L (4-49); African American GFR (CKD) >90 (>60 ml/min/1.73 sqM); Albumin 4.4 g/dL (3.5-5.0); Anion Gap 11 mmol/L; Blood Urea Nitrogen 11 mg/dL (9-20); Calcium 9.5 mg/dL (8.4-10.2); Carbon Dioxide 19 mmol/L (22-30); Chloride 105 mmol/L (98-107); Glucose 88 mg/dL (74-99); Non-African American GFR(CKD) >90 (>60 ml/min/1.73 sqM); Sodium 135 mmol/L (137-145); Total Bilirubin 0.9 mg/dL (0.2-1.3); Total Protein 7.7 g/dL (6.3-8.2)
[2023-05-21] MEDS ORDERED: Acetaminophen-Codeine 300-30mg TAB PO STA (12:37)
[2023-05-21] MEDS ORDERED: KETOROLAC 15 MG/ML 1 ML VIAL IVP STA (12:37)
[2023-05-21 13:01] LABS: Potassium 4.7 mmol/L (3.5-5.1)
[2023-05-21 13:02] LABS: AST 41 U/L (17-59); Alkaline Phosphatase 58 U/L (38-126)
[2023-05-21 13:07] LABS: Erythrocyte Sedimentation Rate 36 mm/hr (0-15)
[2023-05-21 13:15] LABS: C Reactive Protein 6.8 mg/dL (<1.0)
[2023-05-21] MEDS ORDERED: VANCOMYCIN IV PER PHARMACY 1 EACH MISC MISCELLANE PRN (13:22)
[2023-05-21] MEDS ORDERED: CEFEPIME 1 GM in SODIUM CHLORIDE 0.9% 50 ML IVPB STA (13:22)
[2023-05-21] MEDS ORDERED: VANCOMYCIN 1,750 MG in SODIUM CHLORIDE 0.9% 500 ML 500 ML IVPB STA (13:25)
[2023-05-21] MEDS ORDERED: IBUPROFEN 400 MG TAB PO PRN (13:51)
[2023-05-21] MEDS ORDERED: MORPHINE SULFATE 4 MG/ML SYRINGE IV PRN (13:51)
[2023-05-21] MEDS ORDERED: KETOROLAC 15 MG/ML 1 ML VIAL IVP PRN (13:51)
[2023-05-21] MEDS ORDERED: ONDANSETRON 4 MG/2 ML VIAL IVP PRN (13:51)
[2023-05-21] MEDS ORDERED: ACETAMINOPHEN TAB 325 MG TAB PO PRN (13:51)
[2023-05-21] MEDS ORDERED: NALOXONE 0.4 MG/ML 1 ML VIAL IV PRN (13:51)
--- NOTE | 2023-05-21 15:12 | P.CNOR ---
History of Present Illness - [facility] Consult date: 05/21/23 Consult reason: other (Right thumb abscess) History of present illness: Patient is a 57-year-old male who presented to [facility] for further evaluation of a right thumb infection. Patient states that about a week ago he cut his thumb on a piece of sheet metal, he had gone initially to a urgent care center for evaluation, he states he didn't do much for him at that time. He then reported to [facility] a few days ago for further evaluation, he was started on oral antibiotics and discharged home. Patient states over the last day or so of the redness has gotten a lot worse along with pain, he is also noted some purulent drainage from the initial laceration. Our orthopedic team was consulted with regards to cellulitis versus abscess. Patient was evaluated today at bedside in the emergency room, he is resting comfortably at bedside. He notes most pain involving the right thumb more on the dorsal side versus volar side. He notes drainage coming from the small lace ration. He feels that the oral antibiotics prescribed didn't do much to help with symptoms. He was generally worried due to the increase in pain and swelling. Patient denies any previous orthopedic surgeon involving the right thumb. He denies any fevers or chills at this time. She denies any wrist, elbow or shoulder pain at this time. Review of Systems Constitutional: Reports as per [facility] Past Medical History Past Medical History: No Reported History Additional Past Medical History / Comment(s): sacroidosis History of Any Multi-Drug Resistant Organisms: None Reported Past Surgical History: No Surgical Hx Reported Additional Past Surgical History / Comment(s): lung biopsy Past Psychological History: No Psychological Hx Reported Smoking Status: Never smoker Past Alcohol Use History: Occasional Past Drug Use History: None Reported - Past Family History Father Family Medical History: Cancer Medications and Allergies Home Medications Medication Instructions Recorded Confirmed Type Glucos Sul 2Kcl/MSM/Chond/C/Mn 1 cap PO DAILY 01/06/21 05/21/23 History [Glucosamine Chondroitin Cap] Cephalexin [Keflex] 500 mg PO Q6HR 7 Days #28 cap 05/19/23 05/21/23 Rx Ibuprofen [Motrin] 800 mg PO Q8H PRN 05/21/23 05/21/23 History Vitamin C(Unknown Dose) 1 tab PO DAILY 05/21/23 05/21/23 History Vitamin D3(Unknown Dose) 1 tab PO DAILY 05/21/23 05/21/23 History Allergies Allergy/AdvReac Type Severity Reaction Status Date / Time aspirin Allergy Rash/Hives Verified 05/21/23 14:09 Physical Examination Osteopathic Statement: *. No significant issues noted on an osteopathic structural exam other than those noted in the History and Physical/Consult. Right hand: Obvious erythema and soft tissue swelling involving the thumb on the right side. There is a small laceration noted on the dorsal aspect near the interphalangeal joint, there is periwound drainage noted in that area. The erythema doesn't involve both the dorsal and volar aspect of the thumb along with soft tissue swelling Patient is able to bend the thumb, this is limited due to pain, he can extend and flex at the IP joint and MCP joint. There is no pain with palpation at the base of the thumb There is no erythema that transited into the hyperthenar region or cyst at this time No erythema or soft tissue swelling is noted throughout the remaining digits, hand, wrist Patient is able to wiggle all remaining fingers with no difficulty, no pain is reproduced Wrist extension and flexion are intact, elbow extension and flexion are intact with pronation and supination, no pain is reproduced Sensation to light touch is intact throughout the extremity Radial and ulnar pulses are 2+ Results - Labs Labs: Abnormal Lab Results - Last 24 Hours (Table) 05/21/23 05/21/23 Range/Units 11:26 11:26 ESR 36 H (0-15) mm/hr Sodium 135 L (137-145) mmol/L Carbon Dioxide 19 L (22-30) mmol/L ALT 50 H (4-49) U/L C-Reactive Protein 6.8 H (<1.0) mg/dL H & H 05/21/23 Range/Units 11:26 Hgb 14.3 (13.0-17.5) gm/dL Hct 40.8 (39.0-53.0) % Result Diagrams: 05/21/23 11:26 05/21/23 11:26 - Diagnostic results Wrist/Hand x-ray: report reviewed, image reviewed (Right finger x-rays were reviewed from 05/21/2023, images demonstrated no obvious foreign bodies. No acute fractures or dislocations appreciated, reported comment previous avulsion fracture at the IP joint of the right thumb) Assessment and Plan Assessment: Right thumb abscess Right thumb cellulitis Right thumb laceration Failed outpatient oral antibiotic treatment of right thumb cellulitis/abscess Plan: I was able to discuss the case, this including both physical exam findings and imaging studies my attending Dr. Londono. We are recommending orthopedic surgical intervention for this problem, more specifically an incision and drainage with irrigation and debridement of the right thumb Risk and benefits of this procedure were discussed, this to include but not exclusive blood loss, neurovascular injury, development of blood clot, inadequate healing of soft tissue, need for further surgery. Patient was in good understanding with like to proceed Surgery will be scheduled for 05/22/2023 Nothing by mouth after midnight Pain control IV and oral medication as needed IV antibiotics have been started, recommend continuing those during his hospital stay. Consider consulting infectious disease for antibiotic recommendations Medical recommendations appreciated Further recommendations to follow Time with Patient: Less than 30
[2023-05-21] MEDS: Acetaminophen-Codeine 300-30mg TAB PO PRN ×2 (16:42→20:51)
--- NOTE | 2023-05-21 18:29 | P.HPIM ---
History of Present Illness This is a pleasant 57% male with past medical history of sarcoidosis. Presents because of thumb impaction Patient states that this happened about more than a week ago when he was working in his truck door at the window site where his thumb hit the edge and got injured gradually within 2 days. Getting pain and swelling, he wants to urgent care where they did x-ray and if abnormal antibiotics with no improvement after a total of 2 days he wants to see his physician last Thursday who prescribed him antibiotics and did x-ray with no improvement he was referred to the emergency room. His right thumb is swollen and tender with suspected underlying fluctuation, there is minimal yellowish discharge. Also there is diminished ability to flex and extend the thumb. He denies any other new complaints He denies smoking alcohol or illicit drugs Vitals stable Patient has unremarkable CBC, BMP, liver enzymes. ESR 36 and CRP 6.8, both elevated Finger x-ray: Soft tissue swelling of the dorsal thumb no foreign body or osseous erosion by radiologist Patient received cefepime 1 and emergency room and continued with IV vancomycin Review of Systems Review of systems CONSTITUTIONAL: No fever, no malaise, no fatigue. HEENT: No recent visual problems or hearing problems. Denied any sore throat. CARDIOVASCULAR: No orthopnea, PND, no palpitations, no syncope. PULMONARY: No shortness of breath, no cough, no hemoptysis. GASTROINTESTINAL: No diarrhea, no nausea, no vomiting, no abdominal pain. Normoactive bowel sounds. NEUROLOGICAL: No headaches, no weakness, no numbness. HEMATOLOGICAL: Denies any bleeding or petechiae. GENITOURINARY: Denies any burning micturition, frequency, or urgency. MUSCULOSKELETAL/RHEUMATOLOGICAL: Denies any joint pain, swelling, or any muscle pain. ENDOCRINE: Denies any polyuria or polydipsia. Past Medical History Past Medical History: No Reported History Additional Past Medical History / Comment(s): sacroidosis History of Any Multi-Drug Resistant Organisms: None Reported Past Surgical History: No Surgical Hx Reported Additional Past Surgical History / Comment(s): lung biopsy Past Psychological History: No Psychological Hx Reported Smoking Status: Never smoker Past Alcohol Use History: Occasional Past Drug Use History: None Reported - Past Family History Father Family Medical History: Cancer Medications and Allergies Home Medications Medication Instructions Recorded Confirmed Type Glucos Sul 2Kcl/MSM/Chond/C/Mn 1 cap PO DAILY 01/06/21 05/21/23 History [Glucosamine Chondroitin Cap] Cephalexin [Keflex] 500 mg PO Q6HR 7 Days #28 cap 05/19/23 05/21/23 Rx Ibuprofen [Motrin] 800 mg PO Q8H PRN 05/21/23 05/21/23 History Vitamin C(Unknown Dose) 1 tab PO DAILY 05/21/23 05/21/23 History Vitamin D3(Unknown Dose) 1 tab PO DAILY 05/21/23 05/21/23 History Allergies Allergy/AdvReac Type Severity Reaction Status Date / Time aspirin Allergy Rash/Hives Verified 05/21/23 14:09 Physical Exam Vitals: Vital Signs Temp Pulse Resp BP Pulse Ox 05/21/23 10:48 98 F 86 18 139/86 98 Intake and Output 05/20/23 05/21/23 05/21/23 22:59 06:59 14:59 Other: Weight 102.058 kg GENERAL: The patient is alert and oriented x3, not in any acute distress. Well developed, well nourished. HEENT: Pupils are round and equally reacting to light. EOMI. No scleral icterus. No conjunctival pallor. Normocephalic, atraumatic. No pharyngeal erythema. No thyromegaly. CARDIOVASCULAR: S1 and S2 present. No murmurs, rubs, or gallops. PULMONARY: Chest is clear to auscultation, no wheezing , no crackles. ABDOMEN: Soft, nontender, nondistended, normoactive bowel sounds. No palpable organomegaly. MUSCULOSKELETAL: No joint swelling or deformity. -EXTREMITIES: No cyanosis, clubbing, or pedal edema. Right thumb is swollen red tender and boggy with mild purulent discharge with loss of function mainly in the distal phalanx NEUROLOGICAL: Gross neurological examination did not reveal any focal deficits. SKIN: No rashes. no petechiae. Results CBC & Chem 7: 05/21/23 11:26 05/21/23 11:26 Labs: Abnormal Lab Results - Last 24 Hours (Table) 05/21/23 05/21/23 Range/Units 11:26 11:26 ESR 36 H (0-15) mm/hr Sodium 135 L (137-145) mmol/L Carbon Dioxide 19 L (22-30) mmol/L ALT 50 H (4-49) U/L C-Reactive Protein 6.8 H (<1.0) mg/dL Assessment and Plan Assessment: Right thumb infection, with possible underlying abscess Elevated inflammatory markers Recent history of head trauma Sarcoidosis Plan: Infectious disease consult Continue with Antibiotics as per infectious disease team Follow-up recommendation by orthopedic team Labs and medication were reviewed.. Continue same treatment. Continue with symptomatic treatment. Resume home medication. Monitor labs and vitals. DVT and GI prophylaxis. Further recommendations as per clinical course of the christiana ent DVT prophylaxis: Subcutaneous heparin GI Prophylaxis: Pepcid PT/OT: Pending Prognosis is guarded
[2023-05-21] MEDS: VANCOMYCIN 1,750 MG in SODIUM CHLORIDE 0.9% 500 ML 500 ML IVPB SCH (22:38)
[2023-05-21] MEDS: MELATONIN 5 MG TABLET PO SCH (22:38)
--- NOTE | 2023-05-21 22:55 | P.CONS ---
History of Present Illness - Reason for Consult Consult date: 05/21/23 Cellulitis of right thumb Requesting physician: La Webb - Chief Complaint Pain and swelling to the right thumb x few days - History of Present Illness Patient is a 57-year-old male with a past medically significant for sarcoidosis patient apparently cut his right thumb with a saw few days ago patient subsequent noticed to have increasing pain swelling redness to the right thumb area for the patient was evaluated at [facility] ER on 05/19/2023 patient was subsequent discharged home on oral Keflex patient now presenting back to the [facility] ER with worsening pain swelling redness and drainage to the right thumb area patient describing the pain to be more of a throbbing sharp in nature about 7-8 out of 10 without any radiation with associated swelling redness and did have some drainage denies any foul-smelling or high-grade fever on presentation to the hospital patient was afebrile and no fever has been recorded subsequently patient is normal white count creatinine 0.77 CRP and sed rate were elevated patient did have x-ray of the finger soft tissue swelling on the dorsal thumb no radiopaque foreign body or bony erosion patient was started on vancomycin infectious disease was consulted for further management of antibiotic therapy Review of Systems Positive point and negatives has been mentioned in the HPI, complete review of systems was performed and all other systems are negative Past Medical History Past Medical History: No Reported History Additional Past Medical History / Comment(s): sacroidosis History of Any Multi-Drug Resistant Organisms: None Reported Past Surgical History: No Surgical Hx Reported Additional Past Surgical History / Comment(s): lung biopsy Past Psychological History: No Psychological Hx Reported Smoking Status: Never smoker Past Alcohol Use History: Occasional Past Drug Use History: None Reported - Past Family History Father Family Medical History: Cancer Medications and Allergies Home Medications Medication Instructions Recorded Confirmed Type Glucos Sul 2Kcl/MSM/Chond/C/Mn 1 cap PO DAILY 01/06/21 05/21/23 History [Glucosamine Chondroitin Cap] Cephalexin [Keflex] 500 mg PO Q6HR 7 Days #28 cap 05/19/23 05/21/23 Rx Ibuprofen [Motrin] 800 mg PO Q8H PRN 05/21/23 05/21/23 History Vitamin C(Unknown Dose) 1 tab PO DAILY 09/28/23 09/28/23 History Vitamin D3(Unknown Dose) 1 tab PO DAILY 05/21/23 05/21/23 History Allergies Allergy/AdvReac Type Severity Reaction Status Date / Time aspirin Allergy Rash/Hives Verified 05/21/23 14:09 Physical Exam Vitals: Vital Signs Temp Pulse Resp BP Pulse Ox 05/21/23 10:48 98 F 86 18 139/86 98 Intake and Output 05/20/23 05/21/23 05/21/23 22:59 06:59 14:59 Other: Weight 102.058 kg GENERAL DESCRIPTION: Middle-aged male lying in bed, no distress. No tachypnea or accessory muscle of respiration use. HEENT: Shows Pallor , no scleral icterus. Oral mucous membrane is dry. No pharyngeal erythema or thrush NECK: Trachea central, no thyromegaly. LUNGS: Unlabored breathing. Clear to auscultation anteriorly. No wheeze or cr ackle. HEART: S1, S2, regular rate and rhythm. No loud murmur ABDOMEN: Soft, no tenderness , guarding or rigidity, no organomegaly EXTREMITIES: Right thumb with swelling , redness , drainage and tenderness SKIN: No rash, no masses palpable. NEUROLOGICAL: The patient is awake, alert, oriented x3, mood and affect normal. Results CBC & Chem 7: 05/21/23 11:26 05/21/23 11:26 Labs: Abnormal Lab Results - Last 24 Hours (Table) 05/21/23 05/21/23 Range/Units 11:26 11:26 ESR 36 H (0-15) mm/hr Sodium 135 L (137-145) mmol/L Carbon Dioxide 19 L (22-30) mmol/L ALT 50 H (4-49) U/L C-Reactive Protein 6.8 H (<1.0) mg/dL Assessment and Plan (1) Cellulitis of right thumb Current Visit: Yes Status: Acute Code(s): L03.011 - CELLULITIS OF RIGHT FINGER SNOMED Code(s): 74288939583086312 (2) Failure of outpatient treatment Current Visit: Yes Status: Acute Code(s): Z78.9 - OTHER SPECIFIED HEALTH STATUS SNOMED Code(s): 757276832 Plan: 1patient was in the hospital with a right thumb pain swelling redness and did have some purulent drainage concerning for the right thumb abscess likely from gram-positive skin dana in this patient failing outpatient oral Keflex therapy with a question of possible community associated MRSA 2-local culture has been repeated guide further by therapy 3-await Ortho evaluation and drainage of the abscess and deep culture 4-vancomycin pharmacy to dose with a target trough of 15 while watching kidney function and Vanco trough closely. We will follow on clinical condition and cultures to further adjust medication if needed Thank you for this consultation we will follow the patient along with you Dictation was produced using [employer] dictation software. please excuse any grammatical, word or spelling errors. Time with Patient: Greater than 30
[2023-05-22] MEDS: Acetaminophen-Codeine 300-30mg TAB PO PRN ×3 (01:47→19:49)
[2023-05-22 06:17] LABS: African American GFR (CKD) >90 (>60 ml/min/1.73 sqM); Non-African American GFR(CKD) >90 (>60 ml/min/1.73 sqM)
[2023-05-22] MEDS: VANCOMYCIN 1,750 MG in SODIUM CHLORIDE 0.9% 500 ML 500 ML IVPB SCH ×2 (07:51→14:53)
--- NOTE | 2023-05-22 12:35 | P.PN ---
Subjective Progress Note Date: 05/22/23 Principal diagnosis: Right thumb abscess Patient is a 57-year-old male with a past medically significant for sarcoidosis patient apparently cut his right thumb with a saw few days ago patient subsequent noticed to have increasing pain swelling redness to the right thumb area, failing outpatient oral Keflex Therapy. On today's evaluation and that is 05/22/2023, the patient continues to be afebrile, , the patient is breathing comfortably on room air , the patient de nies chest pain shortness or cough, patient denies nausea / vomiting and no diarrhea, denies having any abdominal pain, the patient pain to the right and slightly decreased in intensity Patient did have a creatinine 0.91 cultures currently pending Objective - Vital Signs Vital signs: Vital Signs Temp 98.2 F 05/22/23 07:00 Pulse 71 05/22/23 07:00 Resp 16 05/22/23 07:00 BP 132/81 05/22/23 07:00 Pulse Ox 97 05/22/23 07:00 FiO2 Intake & Output 05/21/23 05/22/23 05/22/23 18:59 06:59 18:59 Intake Total 240 Balance 240 Weight 102.058 kg Intake: Oral 240 Other: # Voids 2 - Exam GENERAL DESCRIPTION: A middle-age male lying in bed in no distress RESPIRATORY SYSTEM: Unlabored breathing , decreased breath sounds at bases HEART: S1 S2 regular rate and rhythm , ABDOMEN: Soft , no tenderness EXTREMITIES: Right thumb did have swelling redness minimal drainage - Labs CBC & Chem 7: 05/21/23 11:26 05/22/23 05:41 Labs: Abnormal Lab Results - Last 24 Hours (Table) 05/21/23 05/21/23 Range/Units 11:26 11:26 ESR 36 H (0-15) mm/hr Sodium 135 L (137-145) mmol/L Carbon Dioxide 19 L (22-30) mmol/L ALT 50 H (4-49) U/L C-Reactive Protein 6.8 H (<1.0) mg/dL Assessment and Plan (1) Cellulitis of right thumb Current Visit: Yes Status: Acute Code(s): L03.011 - CELLULITIS OF RIGHT FINGER SNOMED Code(s): 19171448970364205 (2) Failure of outpatient treatment Current Visit: Yes Status: Acute Code(s): Z78.9 - OTHER SPECIFIED HEALTH STATUS SNOMED Code(s): 615862191 Plan: 1patient was in the hospital with a right thumb pain swelling redness and did have some purulent drainage concerning for the right thumb abscess likely from gram-positive skin dana in this patient failing outpatient oral Keflex therapy with a question of possible community associated MRSA 2-local culture has been obtained, currently waiting for surgical drainage and deep culture 3Patient to continue with pharmacy to dose with a target trough of 15 while watching kidney function and Vanco trough closely. Dictation was produced using [employer] dictation software. please excuse any grammatical, word or spelling errors. Time with Patient: Less than 30
[2023-05-22] MEDS ORDERED: VANCOMYCIN TROUGH DUE 1 EACH MISC MISCELLANE ONE (15:00)
[2023-05-22] MEDS ORDERED: MELATONIN 5 MG TABLET PO SCH (21:00)
--- NOTE | 2023-05-22 21:37 | P.PN ---
Progress Note - Text Progress Note Date: 05/22/23 Orthopedic Surgery Risk Review Dino Gasca is a 57 yo male presenting for evaluation of sudden onset right thumb pain after striking it on a shelf at work. It was painful and he went to urgent care where they looked at it and placed him on pain meds. He states then a day later it became extremely swollen, erythematous, painful and draining from the dorsal aspect. It was my pleasure to have seen and examined Dino Gasca. In our visit today we have had a chance to go over subjective complaints, physical examination findings and treatments including the natural course history without intervention and various interventional options. His imaging demonstrates soft tissue swelling no acute fracture. On physical exam, Dino Gasca demonstrates pain with motion of right thumb and DIP joint which is NV intact at this time. I have explained to the patient that this fracture needs stabilization. Based on the patients imaging, physical exam, and the rapid progression and disabling nature of her symptoms, at this time I recommend surgery in the form or a: Incision and drainage with irrigation and debridement right thumb I discussed the risk and benefits of this procedure at length with Dino Gasca. Questions were invited and answered, and the patient wishes to proceed as outlined below. Currently, I am recommendin. incision and drainage with irrigation and debridement right thumb 2. Review of surgical risks and benefits as well as an educational packet on the proposed surgical procedure. Risks: All surgical procedures come with inherent risks, including those related to positioning, anesthesia, intraoperative findings, and postoperative complications. It is important to understand that surgery does not come with any guarantee of a successful outcome as complications and adverse events are always possible. The patient was given a handout discussing the surgical procedure and risks associated with the intervention, both of which were discussed with the patient. These risks include but are not limited to the following: - Experiencing same, different or even worse symptoms compared to before surgery. - Requiring further surgery or other forms of treatment presently or at some time in the future . - On an extreme but fortunately relatively rare basis severe complication such as blindness, stroke, heart attack, temporary and/or permanent nerve injury, paralysis, coma, or may occur, sometimes without known explanation. - Surgical complications may include but are not limited to risk of infection, fluid accumulation in the surgical dissection site, including a seroma or hematoma, that requires additional surgery, wound drainage, bleeding, new numbness or weakness, vision changes/loss, spinal fluid leakage, non-healing and/or infected incision, headaches, difficulty or inability to swallow, hoarseness, hemopneumothorax, pneumothorax, injury to nerves, spinal cord, blood vessels, lymphatics or other vital organs (i.e., bowel injury, injury to the great vessels); heterotopic bone formation; complications related to the hardware such as screws, rods, including misplaced hardware, device failure, hardware fracture/breakage, or hardware loosening; retained surgical instrumentations or devices and the need for further surgery. - Medical risks of the planned surgery include but are not limited to generalized Infections to the whole body or local areas outside of the surgical site (sepsis), heart attack, bleeding, anaphylaxis, meningitis, seizure, epilepsy, hearing loss, burn morfin, laceration of the head or other areas of the body, bruising, hypersensitivity of the skin, bladder over distension; allergic reaction; shoulder injury related to positioning; fat, blood and air clots to other areas of the body like heart, lungs, brain; failure of internal organs such as lungs, kidneys, liver and excessive bleeding. If blood transfusions are necessary, note that transfusions may cause intolerance reactions such as anaphylaxis or other complex reactions. Despite best efforts, the results of surgery might not heal in terms of bone, soft tissues such as skin, fascia, ligaments, and joints. [facility] has multiple operating rooms with single and overlapping rooms running daily. They currently function under the required guidelines as produced by the [facility] with regards to the overlapping rooms and will continue to comply with changes to this policy as they occur. The requirements include and are complied with as follows: (1) the critical portions of the overlapping rooms will not occur at the same time, (2) the attending physician will be physically present during the critical portions of the procedure and immediately available during the entire case, and (3) a back-up attending is designated should the primary attending not be immediately available. The patient has had a chance to review all the listed information, has been given print outs detailing this information, and has had all his/her questions answered to their satisfaction. It was my pleasure to have seen and examined Dino Gasca. In our visit today we have had a chance to go over my understanding of our patient's current condition, the natural course history without intervention and various interventional options. Questions were invited and answered, and the patient wishes to proceed as outlined above. I have seen and examined the patient for 25 minutes and we have spent more than 50% of the time in repeat and detailed counseling about the patient's condition, its natural course history with out and as much as can be predicted with surgery and re-review of various surgical treatment options. In conclusion, Dino Gasca requested we proceed with the above suggested surgery and are willing to accept risks and limitations of the suggested surgery as nature of the disease process and our best attempts at treatment for the condition. Thank you again for allowing us to be part of your patient's care. Please don't hesitate to contact me if you have any further questions. Signed and authenticated by: Michael Tabares [facility] [address] [facility], [address] [address]
[2023-05-22] MEDS ORDERED: IV FLUID CONTINUATION 1,000 ML IV ONE ×2 (21:49→22:26)
[2023-05-22] MEDS ORDERED: KETAMINE HCL IN 0.9 % NACL 50 MG/5 ML SYRINGE ONE (21:49)
[2023-05-22] MEDS ORDERED: fentaNYL (PF) 50 MCG/ML 2 ML AMP ONE (21:49)
[2023-05-22] MEDS ORDERED: PROPOFOL 10 MG/ML 20 ML VIAL IV ONE (21:49)
[2023-05-22] MEDS ORDERED: KETOROLAC 30 MG/ML 1 ML VIAL ONE (21:49)
[2023-05-22] MEDS ORDERED: MIDAZOLAM 2 MG/2 ML VIAL ONE (21:49)
[2023-05-22] MEDS ORDERED: BUPIVACAINE (PF) 0.25% 10 ML VIAL SQ ONE (21:55)
[2023-05-22] MEDS ORDERED: LIDOCAINE 1% INJ 10MG/ML (20 ML MDV) SQ ONE (21:55)
[2023-05-22] MEDS ORDERED: hydrOXYzine pamoate 25 MG CAP PO PRN (22:25)
[2023-05-22] MEDS ORDERED: SENNOSIDES-DOCUSATE SODIUM 1 EACH TAB PO PRN (22:25)
[2023-05-22] MEDS ORDERED: HYDROmorphone 0.5 MG/0.5 ML SYRINGE IVP ONE (22:41)
[2023-05-22 23:54] LABS: Basophils % (A) 1 %; Eosinophils # (A) 0.2 k/uL (0-0.7); Eosinophils % (A) 4 %; HGB 12.9 gm/dL (13.0-17.5); Lymphocytes # (A) 1.7 k/uL (1.0-4.8); Lymphocytes % (A) 27 %; MCH 31.1 pg (25.0-35.0); MCHC 34.7 g/dL (31.0-37.0); MCV 89.5 fL (80.0-100.0); Mean Platelet Volume 6.7; Monocytes # (A) 0.6 k/uL (0-1.0); Monocytes % (A) 9 %; Neutrophils # (A) 3.6 k/uL (1.3-7.7); Neutrophils % (A) 57 %; Platelet Count 242 k/uL (150-450); RBC 4.14 m/uL (4.30-5.90); WBC 6.3 k/uL (3.8-10.6)
[2023-05-23] MEDS: MELATONIN 5 MG TABLET PO SCH ×2 (00:31→19:33)
[2023-05-23] MEDS: VANCOMYCIN 1,750 MG in SODIUM CHLORIDE 0.9% 500 ML 500 ML IVPB SCH ×3 (00:31→15:10)
[2023-05-23] MEDS: HYDROcodone/APAP 5-325MG 1 EACH TAB PO PRN ×4 (05:44→21:57)
[2023-05-23 06:39] LABS: African American GFR (CKD) >90 (>60 ml/min/1.73 sqM); Non-African American GFR(CKD) >90 (>60 ml/min/1.73 sqM)
--- NOTE | 2023-05-23 11:29 | P.PN ---
Subjective Progress Note Date: 05/23/23 Principal diagnosis: Right thumb felon/abscess Patient was seen at bedside this morning resting in semirecumbent position with dressing over right thumb. Patient says his pain is controlled with [place]. Patient denies any numbness/tingling in the digits of the right hand. Patient denies any other issues at this time. Patient denies chest pain, fever, shortness breath, nausea, vomiting, change in vision, loss of bowel/bladder control. Objective - Vital Signs Vital signs: Vital Signs Temp 98.3 F 05/23/23 08:00 Pulse 65 05/23/23 08:00 Resp 18 05/23/23 08:00 BP 129/77 05/23/23 08:00 Pulse Ox 96 05/23/23 08:00 FiO2 Intake & Output 05/22/23 05/23/23 05/23/23 18:59 06:59 18:59 Intake Total 1050 120 Balance 1050 120 Intake: IV 1050 Oral 120 Other: # Voids 2 2 0 # Bowel Movements 1 - Exam Bulky dressing is present over the right thumb and hand. Patient sensation is equal, symmetric, bilaterally intact throughout the upper extremities. Radial pulses are intact, 2+ bilaterally. Cap refill under 3 seconds in digits of upper extremity. Digits and right hand are lukewarm to touch. Patient has full range of motion throughout right elbow in flexion and extension and in digits 2 through 5 and right hand. There is some tenderness to palpation to the right thumb. Nontender to palpation throughout rest exam. - Labs CBC & Chem 7: 05/22/23 23:29 05/23/23 05:03 Labs: Abnormal Lab Results - Last 24 Hours (Table) 05/22/23 Range/Units 23:29 RBC 4.14 L (4.30-5.90) m/uL Hgb 12.9 L (13.0-17.5) gm/dL Hct 37.0 L (39.0-53.0) % Microbiology - Last 24 Hours (Table) 05/21/23 14:10 Blood Culture - Preliminary Blood 05/21/23 14:00 Blood Culture - Preliminary Blood Assessment and Plan Assessment: 1. Right thumb felon/abscess - Postop day 1 status post right thumb incision and drainage and irrigation debridement Plan: 1. Right thumb felon/abscess - surgery performed yesterday, Thursday, right thumb incision and drainage and irrigation debridement. Patient stable at bedside this morning with dressing over right thumb. Plan for dressing stand for today. Plan for dressing to be removed and changed tomorrow morning and begin Hibiclens soaks 3 times a day for 15 minutes at a time. Encourage patient to perform range of motion exercises of right wrist and digits 2 through 5. Do not remove the right thumb at this time. Weight-bear as tolerated. Regular diet. Cultures pending. We'll continue to follow patient during his stay in hospital. 2. Appreciate medical and ID management 3. Pain management - [place] 4. DVT prophylaxis - mechanical 5. GI prophylaxis - senna 6. PT/OT -Encourage patient to perform range of motion exercises of right wrist and digits 2 through 5. Do not remove the right thumb at this time. 7. Encourage incentive spirometer use Time with Patient: Less than 30
--- NOTE | 2023-05-23 14:48 | P.PN ---
Subjective Progress Note Date: 05/23/23 57y/o male with past medical history of sarcoidosis. Presents because of thumb impaction Patient states that this happened about more than a week ago when he was working in his truck door at the window site where his thumb hit the edge and got injured gradually within 2 days. Getting pain and swelling, he wants to urgent care where they did x-ray and if abnormal antibiotics with no improvement after a total of 2 days he wants to see his physician last Thursday who prescribed him antibiotics and did x-ray with no improvement he was referred to the emergency room. His right thumb is swollen and tender with suspected underlying fluctuation, there is minimal yellowish discharge. Also there is diminished ability to flex and extend the thumb. He denies any other new complaints He denies smoking alcohol or illicit drugs Vitals stable Patient has unremarkable CBC, BMP, liver enzymes. ESR 36 and CRP 6.8, both elevated Finger x-ray: Soft tissue swelling of the dorsal thumb no foreign body or osseous erosion by radiologist Patient received cefepime 1 and emergency room and continued with IV vancomycin Objective - Vital Signs Vital signs: Vital Signs Temp 98.3 F 05/23/23 08:00 Pulse 65 05/23/23 13:43 Resp 18 05/23/23 08:00 BP 129/77 05/23/23 08:00 Pulse Ox 96 05/23/23 08:00 FiO2 Intake & Output 05/22/23 05/23/23 05/23/23 18:59 06:59 18:59 Intake Total 1050 120 Balance 1050 120 Intake: IV 1050 Oral 120 Other: # Voids 2 2 3 # Bowel Movements 1 - Exam GENERAL: The patient is alert and oriented x3, not in any acute distress. Well developed, well nourished. HEENT: Pupils are round and equally reacting to light. EOMI. No scleral icterus. No conjunctival pallor. Normocephalic, atraumatic. No pharyngeal erythema. No thyromegaly. CARDIOVASCULAR: S1 and S2 present. No murmurs, rubs, or gallops. PULMONARY: Chest is clear to auscultation, no wheezing , no crackles. ABDOMEN: Soft, nontender, nondistended, normoactive bowel sounds. No palpable organomegaly. MUSCULOSKELETAL: No joint swelling or deformity. -EXTREMITIES: No cyanosis, clubbing, or pedal edema. Right thumb is swollen red tender and boggy with mild purulent discharge with loss of function mainly in the distal phalanx NEUROLOGICAL: Gross neurological examination did not reveal any focal deficits. SKIN: No rashes. no petechiae. - Labs CBC & Chem 7: 05/22/23 23:29 05/23/23 05:03 Labs: Abnormal Lab Results - Last 24 Hours (Table) 05/22/23 Range/Units 23:29 RBC 4.14 L (4.30-5.90) m/uL Hgb 12.9 L (13.0-17.5) gm/dL Hct 37.0 L (39.0-53.0) % Microbiology - Last 24 Hours (Table) 05/21/23 14:10 Blood Culture - Preliminary Blood 05/21/23 14:00 Blood Culture - Preliminary Blood Assessment and Plan Assessment: Right thumb infection, with possible underlying abscess Elevated inflammatory markers Recent history of head trauma Sarcoidosis Plan: Infectious disease consult Continue with Antibiotics as per infectious disease team Follow-up recommendation by orthopedic team Labs and medication were reviewed.. Continue same treatment. Continue with symptomatic treatment. Resume home medication. Monitor labs and vitals. DVT and GI prophylaxis. Further recommendations as per clinical course of the patient DVT prophylaxis: Subcutaneous heparin GI Prophylaxis: Pepcid PT/OT: Pending Prognosis is guarded
--- NOTE | 2023-05-23 17:52 | P.PN ---
Subjective Progress Note Date: 05/23/23 Principal diagnosis: Right thumb abscess Patient is a 57-year-old male with a past medically significant for sarcoidosis patient apparently cut his right thumb with a saw few days ago patient subsequent noticed to have increasing pain swelling redness to the right thumb area, failing outpatient oral Keflex Therapy. 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 the patient pain to the right has decreased in intensity Patient did have a creatinine 0.81 , WBC 6.83 cultures currently pending Objective - Vital Signs Vital signs: Vital Signs Temp 98.3 F 05/23/23 08:00 Pulse 65 05/23/23 08:00 Resp 18 05/23/23 08:00 BP 129/77 05/23/23 08:00 Pulse Ox 96 05/23/23 08:00 FiO2 Intake & Output 05/22/23 05/23/23 05/23/23 18:59 06:59 18:59 Intake Total 1050 120 Balance 1050 120 Intake: IV 1050 Oral 120 Other: # Voids 2 2 0 # Bowel Movements 1 - Exam GENERAL DESCRIPTION: A middle-age male lying in bed in no distress RESPIRATORY SYSTEM: Unlabored breathing , decreased breath sounds at bases HEART: S1 S2 regular rate and rhythm , ABDOMEN: Soft , no tenderness EXTREMITIES: Right thumb is dressed no drainage - Labs CBC & Chem 7: 05/22/23 23:29 05/23/23 05:03 Labs: Abnormal Lab Results - Last 24 Hours (Table) 05/22/23 Range/Units 23:29 RBC 4.14 L (4.30-5.90) m/uL Hgb 12.9 L (13.0-17.5) gm/dL Hct 37.0 L (39.0-53.0) % Microbiology - Last 24 Hours (Table) 05/21/23 14:10 Blood Culture - Preliminary Blood 05/21/23 14:00 Blood Culture - Preliminary Blood Assessment and Plan (1) Cellulitis of right thumb Current Visit: Yes Status: Acute Code(s): L03.011 - CELLULITIS OF RIGHT FINGER SNOMED Code(s): 89603904486978226 (2) Failure of outpatient treatment Current Visit: Yes Status: Acute Code(s): Z78.9 - OTHER SPECIFIED HEALTH STATUS SNOMED Code(s): 193885585 Plan: 1patient was in the hospital with a right thumb pain swelling redness and did have some purulent drainage concerning for the right thumb abscess likely from gram-positive skin dana in this patient failing outpatient oral Keflex therapy with a question of possible community associated MRSA 2-local culture obtained in ER lost, cultures obtained from surgical drainage are pending 3Patient to continue with pharmacy to dose with a target trough of 15 while waiting for the cultures to be finalized Dictation was produced using [employer] dictation software. please excuse any grammatical, word or spelling errors Time with Patient: Less than 30
[2023-05-24] MEDS: VANCOMYCIN 1,750 MG in SODIUM CHLORIDE 0.9% 500 ML 500 ML IVPB SCH ×2 (00:03→07:46)
[2023-05-24 09:43] LABS: BUN/Creat Ratio 13.75 Ratio (12.00-20.00); Calcium 8.6 mg/dL (8.7-10.3); Carbon Dioxide 22.9 mmol/L (21.6-31.8); Chloride 105 mmol/L (96-109); Glucose 99 mg/dL (70-110); Potassium 4.4 mmol/L (3.5-5.5); Sodium 139 mmol/L (135-145)
[2023-05-24 09:51] LABS: Basophils # (A) 0.04 X 10*3/uL (0.00-0.10); Basophils % (A) 0.8 %; Eosinophils # (A) 0.28 X 10*3/uL (0.04-0.35); Eosinophils % (A) 5.4 %; HCT 35.5 % (39.6-50.0); HGB 12.3 d/dL (13.0-17.0); Lymphocytes # (A) 1.45 X 10*3/uL (0.90-5.00); Lymphocytes % (A) 28.2 %; MCH 30.7 pg (27.0-32.0); MCHC 34.6 d/dL (32.0-37.0); MCV 88.5 FL (80.0-97.0); Mean Platelet Volume 9.4 FL (9.5-12.2); Monocytes # (A) 0.62 X 10*3/uL (0.20-1.00); Monocytes % (A) 12.1 %; NRBC Per 100 WBC 0 X 10*3/uL (0.00-0.01); Neutrophils # (A) 2.72 X 10*3/uL (1.80-7.70); Neutrophils % (A) 52.9 %; Platelet Count 240 X 10*3/uL (140-440); RBC 4.01 X 10*6/uL (4.40-5.60); RDW 11.7 % (11.5-14.5); WBC 5.14 X 10*3/uL (4.50-10.00)
--- NOTE | 2023-05-24 10:48 | P.PN ---
Subjective Progress Note Date: 05/24/23 Principal diagnosis: Right thumb felon/abscess Patient was seen at bedside this morning resting in semirecumbent position with dressing over right thumb. Patient says his pain is controlled with [place]. Patient denies any numbness/tingling in the digits of the right hand. Patient denies any other issues at this time. Patient denies chest pain, fever, shortness breath, nausea, vomiting, change in vision, loss of bowel/bladder control. Objective - Vital Signs Vital signs: Vital Signs Temp 98 F 05/24/23 08:00 Pulse 64 05/24/23 08:00 Resp 18 05/24/23 08:00 BP 149/91 05/24/23 08:00 Pulse Ox 97 05/24/23 08:00 FiO2 Intake & Output 05/23/23 05/24/23 05/24/23 18:59 06:59 18:59 Intake Total 240 Balance 240 Intake: Oral 240 Other: # Voids 1 2 0 - Exam Dressing taken down over thumb. Thumb appears to be swollen with localized erythema. Negative for any active drainage. Begin Hibiclens soaks this morning. Patient sensation is equal, symmetric, bilaterally intact throughout the upper extremities. Radial pulses are intact, 2+ bilaterally. Cap refill under 3 seconds in digits of upper extremity. Digits and right hand are lukewarm to touch. Patient has full range of motion throughout right elbow in flexion and extension and in digits 2 through 5 and right hand. There is some tenderness to palpation to the right thumb. Nontender to palpation throughout rest exam. - Labs CBC & Chem 7: 05/24/23 05:38 05/24/23 05:38 Labs: Abnormal Lab Results - Last 24 Hours (Table) 05/24/23 05/24/23 Range/Units 05:38 05:38 RBC 4.01 L (4.40-5.60) X 10*6/uL Hgb 12.3 L (13.0-17.0) d/dL Hct 35.5 L (39.6-50.0) % MPV 9.4 L (9.5-12.2) FL Calcium 8.6 L (8.7-10.3) mg/dL Microbiology - Last 24 Hours (Table) 05/22/23 23:12 Gram Stain - Preliminary Finger - Right First 05/21/23 14:10 Blood Culture - Preliminary Blood 05/21/23 14:00 Blood Culture - Preliminary Blood 05/21/23 15:33 Gram Stain - Final Finger - Right First Wound Culture - Final Beta Hemolytic Streptococcus F Assessment and Plan Assessment: 1. Right thumb felon/abscess - Postop day 2 status post right thumb incision and drainage and irrigation debridement Plan: 1. Right thumb felon/abscess - surgery performed yesterday, 05/22/2023right thumb incision and drainage and irrigation debridement. Thong ssing taken down at bedside this morning and start Hibiclens soaks. Encourage patient to perform range of motion exercises of right wrist and digits 2 through 5. Do not move the right thumb at this time. Weight-bear as tolerated. Regular diet. Antibiotics per infectious disease. Cultures shows beta hemolytic Streptococcus F. We'll continue to follow patient during his stay in hospital. 2. Appreciate medical and ID management 3. Pain management - [place] 4. DVT prophylaxis - mechanical 5. GI prophylaxis - senna 6. PT/OT -Encourage patient to perform range of motion exercises of right wrist and digits 2 through 5. Do not remove the right thumb at this time. 7. Encourage incentive spirometer use Time with Patient: Less than 30
[2023-05-24] MEDS: AMPICILLIN-SULBACTAM 3 GM in SODIUM CHLORIDE 0.9% 100 ML IVPB SCH ×2 (13:25→17:13)
--- NOTE | 2023-05-24 13:31 | P.PN ---
Subjective Progress Note Date: 05/24/23 57y/o male with past medical history of sarcoidosis. Presents because of thumb impaction Patient states that this happened about more than a week ago when he was working in his truck door at the window site where his thumb hit the edge and got injured gradually within 2 days. Getting pain and swelling, he wants to urgent care where they did x-ray and if abnormal antibiotics with no improvement after a total of 2 days he wants to see his physician last Thursday who prescribed him antibiotics and did x-ray with no improvement he was referred to the emergency room. His right thumb is swollen and tender with suspected underlying fluctuation, there is minimal yellowish discharge. Also there is diminished ability to flex and extend the thumb. He denies any other new complaints He denies smoking alcohol or illicit drugs Vitals stable Patient has unremarkable CBC, BMP, liver enzymes. ESR 36 and CRP 6.8, both elevated Finger x-ray: Soft tissue swelling of the dorsal thumb no foreign body or osseous erosion by radiologist Patient received cefepime 1 and emergency room and continued with IV vancomycin 05/24/2023 Patient is seen and evaluated sitting up in bedside chair; reports marked improvement in pain; swelling improving slowly Vital signs are reviewed and remained stable and patient remains afebrile Lab review shows the previously 5.1, hemoglobin of 4.3 and platelet count of 240, sodium 139, has appointment for, BUN/creatinine of 11/0.8 Patient is status post incision and drainage and irrigation with debridement of right thumb felon/abscess Remains on IV antibiotics in form of vancomycin Objective - Vital Signs Vital signs: Vital Signs Temp 98 F 05/24/23 08:00 Pulse 64 05/24/23 08:00 Resp 18 05/24/23 08:00 BP 149/91 05/24/23 08:00 Pulse Ox 97 05/24/23 08:00 FiO2 Intake & Output 05/23/23 05/24/23 05/24/23 18:59 06:59 18:59 Intake Total 240 Balance 240 Intake: Oral 240 Other: # Voids 1 2 0 - Exam GENERAL: The patient is alert and oriented x3, not in any acute distress. Well developed, well nourished. HEENT: Pupils are round and equally reacting to light. EOMI. No scleral icterus. No conjunctival pallor. Normocephalic, atraumatic. No pharyngeal erythema. No thyromegaly. CARDIOVASCULAR: S1 and S2 present. No murmurs, rubs, or gallops. PULMONARY: Chest is clear to auscultation, no wheezing , no crackles. ABDOMEN: Soft, nontender, nondistended, normoactive bowel sounds. No palpable organomegaly. MUSCULOSKELETAL: No joint swelling or deformity. -EXTREMITIES: No cyanosis, clubbing, or pedal edema. Right thumb is swollen red tender and boggy with mild purulent discharge with loss of function mainly in the distal phalanx NEUROLOGICAL: Gross neurological examination did not reveal any focal deficits. SKIN: No rashes. no petechiae. - Labs CBC & Chem 7: 05/24/23 05:38 05/24/23 05:38 Labs: Abnormal Lab Results - Last 24 Hours (Table) 05/24/23 05/24/23 Range/Units 05:38 05:38 RBC 4.01 L (4.40-5.60) X 10*6/uL Hgb 12.3 L (13.0-17.0) d/dL Hct 35.5 L (39.6-50.0) % MPV 9.4 L (9.5-12.2) FL Calcium 8.6 L (8.7-10.3) mg/dL Microbiology - Last 24 Hours (Table) 05/22/23 23:12 Gram Stain - Preliminary Finger - Right First 05/21/23 14:10 Blood Culture - Preliminary Blood 05/21/23 14:00 Blood Culture - Preliminary Blood 05/21/23 15:33 Gram Stain - Final Finger - Right First Wound Culture - Final Beta Hemolytic Streptococcus F Assessment and Plan Assessment: Right thumb infection, with possible underlying abscess Elevated inflammatory markers Recent history of head trauma Sarcoidosis Plan: Infectious disease consult Continue with Antibiotics as per infectious disease team Follow-up recommendation by orthopedic team Labs and medication were reviewed.. Continue same treatment. Continue with symptomatic treatment. Resume home medication. Monitor labs and vitals. DVT and GI prophylaxis. Further recommendations as per clinical course of the patient DVT prophylaxis: Subcutaneous heparin GI Prophylaxis: Pepcid PT/OT: Pending Prognosis is guarded
[2023-05-24] MEDS ORDERED: VANCOMYCIN TROUGH DUE 1 EACH MISC MISCELLANE ONE (15:00)
[2023-05-24] MEDS: MELATONIN 5 MG TABLET PO SCH (20:53)
--- NOTE | 2023-05-24 21:29 | P.PN ---
Subjective Progress Note Date: 05/24/23 Principal diagnosis: Right thumb abscess Patient is a 57-year-old male with a past medically significant for sarcoidosis patient apparently cut his right thumb with a saw few days ago patient subsequent noticed to have increasing pain swelling redness to the right thumb area, failing outpatient oral Keflex Therapy. Pt is s/p drainage of the right thumb abscess on 05/22/2023 On today's evaluation and that is 05/24/2023, the patient continues to be afebrile, , the patient is breathing comfortably on room air, the patient denies chest pain shortness of breath or cough, patient denies nausea or vomiting abdominal pain, and no diarrhea has been reported , no new symptoms, patient pain to the right has decreased in intensity Patient local cultures with betra hemolytic strept group F , WBC normal Objective - Vital Signs Vital signs: Vital Signs Temp 98.4 F 05/24/23 19:33 Pulse 63 05/24/23 19:33 Resp 16 05/24/23 19:33 BP 132/76 05/24/23 19:33 Pulse Ox 97 05/24/23 19:33 FiO2 Intake & Output 05/24/23 05/24/23 05/25/23 06:59 18:59 06:59 Intake Total 480 Balance 480 Intake: Oral 480 Other: # Voids 2 240 - Exam GENERAL DESCRIPTION: A middle-age male lying in bed in no distress RESPIRATORY SYSTEM: Unlabored breathing , decreased breath sounds at bases HEART: S1 S2 regular rate and rhythm , ABDOMEN: Soft , no tenderness EXTREMITIES: Right thumb still have significant swelling and redness - Labs CBC & Chem 7: 05/24/23 05:38 05/24/23 05:38 Labs: Abnormal Lab Results - Last 24 Hours (Table) 05/24/23 05/24/23 Range/Units 05:38 05:38 RBC 4.01 L (4.40-5.60) X 10*6/uL Hgb 12.3 L (13.0-17.0) d/dL Hct 35.5 L (39.6-50.0) % MPV 9.4 L (9.5-12.2) FL Calcium 8.6 L (8.7-10.3) mg/dL Microbiology - Last 24 Hours (Table) 05/21/23 14:10 Blood Culture - Preliminary Blood 05/21/23 14:00 Blood Culture - Preliminary Blood 05/22/23 23:12 Gram Stain - Preliminary Finger - Right First 05/21/23 15:33 Gram Stain - Final Finger - Right First Wound Culture - Final Beta Hemolytic Streptococcus F Assessment and Plan (1) Cellulitis of right thumb Current Visit: Yes Status: Acute Code(s): L03.011 - CELLULITIS OF RIGHT FINGER SNOMED Code(s): 24206608361621650 (2) Failure of outpatient treatment Current Visit: Yes Status: Acute Code(s): Z78.9 - OTHER SPECIFIED HEALTH STATUS SNOMED Code(s): 631968460 Plan: 1patient was in the hospital with a right thumb pain swelling redness and did have some purulent drainage concerning for the right thumb abscess likely from gram-positive skin dana in this patient failing outpatient oral Keflex therapy with a question of possible community associated MRSA 2-local culture obtained in ER lost, cultures obtained growing betra hemolytic strept 3will dc vancomycin and start unasyn , will reeval the thumb tomorrow , may need IV antibiotics on Dc Dictation was produced using [employer] dictation software. please excuse any grammatical, word or spelling errors Time with Patient: Less than 30
[2023-05-25] MEDS: AMPICILLIN-SULBACTAM 3 GM in SODIUM CHLORIDE 0.9% 100 ML IVPB SCH ×5 (01:14→23:18)
[2023-05-25 08:50] LABS: Basophils # (A) 0.06 X 10*3/uL (0.00-0.10); Eosinophils # (A) 0.24 X 10*3/uL (0.04-0.35); Eosinophils % (A) 3.9 %; HGB 12.5 d/dL (13.0-17.0); Lymphocytes # (A) 1.58 X 10*3/uL (0.90-5.00); Lymphocytes % (A) 25.6 %; MCH 30.6 pg (27.0-32.0); MCHC 34.7 d/dL (32.0-37.0); MCV 88.2 FL (80.0-97.0); Mean Platelet Volume 9.3 FL (9.5-12.2); Monocytes # (A) 0.63 X 10*3/uL (0.20-1.00); Monocytes % (A) 10.2 %; NRBC Per 100 WBC 0 X 10*3/uL (0.00-0.01); Neutrophils # (A) 3.61 X 10*3/uL (1.80-7.70); Neutrophils % (A) 58.3 %; Platelet Count 279 X 10*3/uL (140-440); RBC 4.08 X 10*6/uL (4.40-5.60); RDW 11.8 % (11.5-14.5); WBC 6.18 X 10*3/uL (4.50-10.00)
[2023-05-25 10:19] LABS: BUN/Creat Ratio 14.44 Ratio (12.00-20.00); Calcium 9.3 mg/dL (8.7-10.3); Carbon Dioxide 21.7 mmol/L (21.6-31.8); Chloride 106 mmol/L (96-109); Glucose 97 mg/dL (70-110); Potassium 4.5 mmol/L (3.5-5.5); Sodium 139 mmol/L (135-145)
--- NOTE | 2023-05-25 13:47 | P.PN ---
Progress Note - Text Progress Note Date: 05/25/23 The patient was seen and examined by myself at bedside today. I was asked to evaluate the patient myself by Dr. Londono. He is now postoperative day 3 of a right thumb abscess incision, irrigation and drainage. He's been on antibiotics and and notes improvement of his pain. He started working on Hibiclens soaks 3 times a day. His pain has been controlled. He denies any flexor sheath tenderness and is able to move the tip of the thumb. His cultures are growing group F Streptococcus. On exam, the dorsal aspect of the thumb appears to be swollen and slightly erythematous with several longitudinal incisions with sutures intact. I was able to express a small amount of purulence from the dorsal and radial incisions. I removed all sutures, so the wounds are now open and was able to flush more purulence out. I recommend keeping the wounds open for the next 2-3 days while continuing Hibiclens soaks with aggressive milking of the thumb and encourage active range of motion of the thumb IP joint and plan for healing of his incisions by secondary intention. If his thumb wound appears stable tomorrow we discussed he may be stable for discharge home on antibiotics with outpatient follow-up. Adryan Bynum DO Orthopedic Hand/Upper Extremity Surgeon
[2023-05-25] MEDS: MELATONIN 5 MG TABLET PO SCH (21:30)
[2023-05-26] MEDS: AMPICILLIN-SULBACTAM 3 GM in SODIUM CHLORIDE 0.9% 100 ML IVPB SCH (05:49)
--- NOTE | 2023-05-26 06:26 | P.PN ---
Subjective Progress Note Date: 05/25/23 57y/o male with past medical history of sarcoidosis. Presents because of thumb impaction Patient states that this happened about more than a week ago when he was working in his truck door at the window site where his thumb hit the edge and got injured gradually within 2 days. Getting pain and swelling, he wants to urgent care where they did x-ray and if abnormal antibiotics with no improvement after a total of 2 days he wants to see his physician last Thursday who prescribed him antibiotics and did x-ray with no improvement he was referred to the emergency room. His right thumb is swollen and tender with suspected underlying fluctuation, there is minimal yellowish discharge. Also there is diminished ability to flex and extend the thumb. He denies any other new complaints He denies smoking alcohol or illicit drugs Vitals stable Patient has unremarkable CBC, BMP, liver enzymes. ESR 36 and CRP 6.8, both elevated Finger x-ray: Soft tissue swelling of the dorsal thumb no foreign body or osseo us erosion by radiologist Patient received cefepime 1 and emergency room and continued with IV vancomycin 05/24/2023 Patient is seen and evaluated sitting up in bedside chair; reports marked improvement in pain; swelling improving slowly Vital signs are reviewed and remained stable and patient remains afebrile Lab review shows the previously 5.1, hemoglobin of 4.3 and platelet count of 240, sodium 139, has appointment for, BUN/creatinine of 11/0.8 Patient is status post incision and drainage and irrigation with debridement of right thumb felon/abscess Remains on IV antibiotics in form of vancomycin 05/25/2023 Patient is seen and evaluated in follow-up this morning being followed by infectious disease along with orthopedics for right thumb cellulitis. Patient u nderwent incision and drainage awaiting cultures to discharge antibiotics. Patient is currently afebrile with no reports of chest pain or shortness of breath. Patient tolerating diet with no reported nausea or vomiting. Patient has been doing Hibiclens soaks her orthopedics and was instructed to 3 times daily. Patient has been elevating right thumb on the rest. Patient reports continues to be swollen with minimal flexing movement. Patient does report he has sensation of the thumb. Patient is asking when he is able to go home. Review of systems: Constitutional: No reports of fatigue, fever, or chills Cardiovascular: No reports of chest pain or palpitations Respiratory: No reports of shortness of breath or cough GI: No reports of nausea, vomiting, or diarrhea : No reports of dysuria or retention Neurovascular: No reports of weakness or numbness, reports some swelling and stiffness with minimal improvement All medications have been reviewed Physical exam: GENERAL: The patient is alert and oriented x3, not in any acute distress. Well developed, well nourished. HEENT: Pupils are round and equally reacting to light. EOMI. No scleral icterus. No conjunctival pallor. Normocephalic, atraumatic. No pharyngeal erythema. No thyromegaly. CARDIOVASCULAR: S1 and S2 present. No murmurs, rubs, or gallops. PULMONARY: Chest is clear to auscultation, no wheezing , no crackles. ABDOMEN: Soft, nontender, nondistended, normoactive bowel sounds. No palpable organomegaly. MUSCULOSKELETAL: No joint swelling or deformity. EXTREMITIES: No cyanosis, clubbing, or pedal edema. Right thumb is swollen red tender with mild purulent discharge with loss of function mainly in the distal phalanx NEUROLOGICAL: Gross neurological examination did not reveal any focal deficits. SKIN: No rashes. no petechiae. Assessment: Right thumb cellulitis, with underlying abscess status post incision and drainage with orthopedics Elevated inflammatory markers secondary to above Recent history of head trauma History of Sarcoidosis Obesity with a BMI of 32.3 GI prophylaxis DVT prophylaxis Full code Plan: Patient is continued on antibiotics with infectious disease following recommending one more dose of IV antibiotics and will discharge home on oral antibiotics Patient has been doing Hibiclens soaks 3 daily per orthopedics although infectious disease recommends against this Orthopedics evaluated the patient removed some of the sutures and expressed some more drainage and instructed the patient to milk the thumb and continue with cleansing and frequent moving of the joints and will reevaluate tomorrow for possible discharge planning Will follow-up with consultations discharge planning. Probable discharge in 24 hours The impression and plan of care has been dictated by Iram Zuniga, Nurse Practitioner as directed. Dr. Martínez MD I have performed a history and examination and MDM of this patient, discussed the same with the dictator, and agree with the dictator's assessment and plan as written ,documented as a scribe. Based on total visit time, I have performed more than 50% of the visit. Objective - Vital Signs Vital signs: Vital Signs Temp 98.8 F 05/25/23 07:25 Pulse 60 05/25/23 07:25 Resp 18 05/25/23 07:25 BP 155/91 05/25/23 07:25 Pulse Ox 98 05/25/23 07:25 FiO2 Intake & Output 05/24/23 05/25/23 05/25/23 18:59 06:59 18:59 Intake Total 480 240 Balance 480 240 Intake: Oral 480 240 Other: # Voids 240 3 - Labs CBC & Chem 7: 05/25/23 05:20 05/25/23 05:20 Labs: Abnormal Lab Results - Last 24 Hours (Table) 05/25/23 Range/Units 05:20 RBC 4.08 L (4.40-5.60) X 10*6/uL Hgb 12.5 L (13.0-17.0) d/dL Hct 36.0 L (39.6-50.0) % MPV 9.3 L (9.5-12.2) FL Microbiology - Last 24 Hours (Table) 05/21/23 14:10 Blood Culture - Preliminary Blood 05/21/23 14:00 Blood Culture - Preliminary Blood 05/22/23 23:12 Gram Stain - Preliminary Finger - Right First
[2023-05-26 07:55] VITALS: BP 144/77; PULSE 57; RESP 16; TEMP 97.9
--- NOTE | 2023-05-26 11:00 | P.PN ---
Subjective Progress Note Date: 05/26/23 Principal diagnosis: Right thumb felon/abscess Patient was seen at bedside this morning sitting up in chair. Patient says he is looking forward to going home later today and says he will keep incision clean, dry, intact at home. Patient says he will do Hibiclens soaks 3 times d aily at home. Patient says his pain is controlled with [place]. Patient denies any numbness/tingling in the digits of the right hand. Patient denies any other issues at this time. Patient denies chest pain, fever, shortness breath, nausea, vomiting, change in vision, loss of bowel/bladder control. Objective - Vital Signs Vital signs: Vital Signs Temp 97.9 F 05/26/23 07:45 Pulse 57 L 05/26/23 07:45 Resp 16 05/26/23 07:45 BP 144/77 05/26/23 07:45 Pulse Ox 96 05/26/23 07:45 FiO2 Intake & Output 05/25/23 05/26/23 05/26/23 18:59 06:59 18:59 Intake Total 720 Balance 720 Intake: Oral 720 Other: # Voids 1 1 - Exam swelling decreasing. erythema decreasing and localizing. Patient sensation is equal, symmetric, bilaterally intact throughout the upper extremities. Radial pulses are intact, 2+ bilaterally. Cap refill under 3 seconds in digits of upper extremity. Digits and right hand are lukewarm to touch. Patient has full range of motion throughout right elbow in flexion and extension and in digits 2 through 5 and right hand. There is some tenderness to palpation to the right thumb. Nontender to palpation throughout rest exam. - Labs CBC & Chem 7: 05/25/23 05:20 05/25/23 05:20 Labs: Microbiology - Last 24 Hours (Table) 05/22/23 22:10 Gram Stain - Final Finger - Right First Wound Culture - Final Beta Hemolytic Streptococcus F 05/22/23 23:12 Gram Stain - Final Finger - Right First Wound Culture - Final Beta Hemolytic Streptococcus F Assessment and Plan Assessment: 1. Right thumb felon/abscess - Postop day 4 status post right thumb incision and drainage and irrigation debr idement Plan: 1. Right thumb felon/abscess - surgery performed 05/22/2023right thumb incision and drainage and irrigation debridement. Erythema localizing. swelling decreasing. Encourage patient to perform range of motion exercises of right wrist and digits 2 through 5. Antibiotics per infectious disease. Cultures shows beta hemolytic Streptococcus F. Okay from ortho standpoint for discharge home today. 2. Appreciate medical and ID management 3. Pain management - [place] 4. DVT prophylaxis - mechanical 5. GI prophylaxis - senna 6. PT/OT -Encourage patient to perform range of motion exercises of right wrist and digits 2 through 5. milk thumb and perform hibiclens soaks TID 15 mins at a time. 7. Encourage incentive spirometer use Time with Patient: Less than 30
--- NOTE | 2023-05-26 13:02 | P.PN ---
Subjective Progress Note Date: 05/25/23 Principal diagnosis: Right thumb abscess Patient is a 57-year-old male with a past medically significant for sarcoidosis patient apparently cut his right thumb with a saw few days ago patient subsequent noticed to have increasing pain swelling redness to the right thumb area, failing outpatient oral Keflex Therapy. Pt is s/p drainage of the right thumb abscess on 05/22/2023 On today's evaluation and that is 05/25/2023, the patient denies any fever or any chills , the patient is breathing comfortably on room air , the patient denies chest pain or cough, patient denies ausea or vomiting and no abdominal pain, no diarrhea patient pain to the right has decreased in intensity Patient local cultures with betra hemolytic strept group F , white count is 6.18, creatinine 0.9 Objective - Vital Signs Vital signs: Vital Signs Temp 98.8 F 05/25/23 07:25 Pulse 60 05/25/23 07:25 Resp 18 05/25/23 07:25 BP 155/91 05/25/23 07:25 Pulse Ox 98 05/25/23 07:25 FiO2 Intake & Output 05/24/23 05/25/23 05/25/23 18:59 06:59 18:59 Intake Total 480 240 Balance 480 240 Intake: Oral 480 240 Other: # Voids 240 3 - Exam GENERAL DESCRIPTION: A middle-age male lying in bed in no distress RESPIRATORY SYSTEM: Unlabored breathing , decreased breath sounds at bases HEART: S1 S2 regular rate and rhythm , ABDOMEN: Soft , no tenderness EXTREMITIES: Right thumb swelling redness slightly decreased and no drainage st itches intact - Labs CBC & Chem 7: 05/25/23 05:20 05/25/23 05:20 Labs: Abnormal Lab Results - Last 24 Hours (Table) 05/25/23 Range/Units 05:20 RBC 4.08 L (4.40-5.60) X 10*6/uL Hgb 12.5 L (13.0-17.0) d/dL Hct 36.0 L (39.6-50.0) % MPV 9.3 L (9.5-12.2) FL Microbiology - Last 24 Hours (Table) 05/21/23 14:10 Blood Culture - Preliminary Blood 05/21/23 14:00 Blood Culture - Preliminary Blood 05/22/23 23:12 Gram Stain - Preliminary Finger - Right First Assessment and Plan (1) Cellulitis of right thumb Status: Acute Code(s): L03.011 - CELLULITIS OF RIGHT FINGER SNOMED Code(s): 52255135044980681 (2) Failure of outpatient treatment Status: Acute Code(s): Z78.9 - SNOMED Code(s): 063760176 Plan: 1patient was in the hospital with a right thumb pain swelling redness and did have some purulent drainage concerning for the right thumb abscess likely from gram-positive skin dana in this patient failing outpatient oral Keflex therapy with a question of possible community associated MRSA 2-local culture obtained in ER lost, cultures obtained growing betra hemolytic strept 3we will continue the patient on Unasyn, with the plan for therapy with oral Keflex Questions Answered Dictation was produced using [employer] dictation software. please excuse any grammatical, word or spelling errors Time with Patient: Less than 30
--- NOTE | 2023-05-26 13:03 | P.PN ---
Subjective Progress Note Date: 05/26/23 Principal diagnosis: Right thumb abscess Patient is a 57-year-old male with a past medically significant for sarcoidosis patient apparently cut his right thumb with a saw few days ago patient subsequent noticed to have increasing pain swelling redness to the right thumb area, failing outpatient oral Keflex Therapy. Pt is s/p drainage of the right thumb abscess on 05/22/2023 On today's evaluation and that is 05/26/2023, the patient remains to be febrile , the patient is breathing comfortably on room air , the patient denies chest pain or cough, patient denies ausea or vomiting and no abdominal pain, no diarrhea, the patient denies to the right thumb Patient local cultures with betra hemolytic strept group F , white count is 6.18, creatinine 0.9 as of yesterday no blood draw today Objective - Vital Signs Vital signs: Vital Signs Temp 97.9 F 05/26/23 07:45 Pulse 57 L 05/26/23 07:45 Resp 16 05/26/23 07:45 BP 144/77 05/26/23 07:45 Pulse Ox 96 05/26/23 07:45 FiO2 Intake & Output 05/25/23 05/26/23 05/26/23 18:59 06:59 18:59 Intake Total 720 Balance 720 Intake: Oral 720 Other: # Voids 1 1 - Exam GENERAL DESCRIPTION: A middle-age male lying in bed in no distress RESPIRATORY SYSTEM: Unlabored breathing , decreased breath sounds at bases HEART: S1 S2 regular rate and rhythm , ABDOMEN: Soft , no tenderness EXTREMITIES: Right thumb swelling redness slightly decreased stitches are out m inimal drainage - Labs CBC & Chem 7: 05/25/23 05:20 05/25/23 05:20 Labs: Microbiology - Last 24 Hours (Table) 05/22/23 22:10 Gram Stain - Final Finger - Right First Wound Culture - Final Beta Hemolytic Streptococcus F 05/22/23 23:12 Gram Stain - Final Finger - Right First Wound Culture - Final Beta Hemolytic Streptococcus F Assessment and Plan (1) Cellulitis of right thumb Status: Acute Code(s): L03.011 - CELLULITIS OF RIGHT FINGER SNOMED Code(s): 82621543918517457 (2) Failure of outpatient treatment Status: Acute Code(s): Z78.9 - SNOMED Code(s): 341991422 Plan: 1patient was in the hospital with a right thumb pain swelling redness and did have some purulent drainage concerning for the right thumb abscess likely from gram-positive skin dana in this patient failing outpatient oral Keflex therapy with a question of possible community associated MRSA 2-local culture obtained in ER lost, cultures obtained growing betra hemolytic strept 3patient seemed to have shown clinical improvement, patient to finish therapy therapy with oral Keflex, prescription was sent to the pharmacy and close outpatient follow-up Dictation was produced using [employer] dictation software. please excuse any grammatical, word or spelling errors Time with Patient: Less than 30
--- NOTE | 2023-05-26 16:46 | P.OP ---
Date of Procedure: 05/22/23 Preoperative Diagnosis: 1. RIGHT THUMB INFECTION, DORSAL AND FELON 2. S/P INJURY ON METAL DOOR Postoperative Diagnosis: 1. RIGHT THUMB INFECTION, DORSAL AND FELON 2. S/P INJURY ON METAL DOOR Procedure(s) Performed: 1. INCISION AND DRAINAGE WITH IRRIGATION AND DEBRIDMENT OF RIGHT THUMB SKIN, SOFT TISSUE AND BONE 4X2X2 CM TOTAL -KNIFE USED TO INCISE SKIN -CURETTE AND STAT USED TO DEBRIDE SOFT TISSUE AND BONE OF THE IP JOINT OF RIGHT THUMB -IRRIGANT USED TO WASHOUT Implants: None Anesthesia: MAC, local Surgeon: Michael Londono Embroiderer #1: Frank Rasheed (Was present and assisted with all aspects of the case from position to closure) Estimated Blood Loss (ml): 20 IV fluids (ml): 1,000 Urine output (ml): 0 Pathology: other (X2 RIGHT THUMB FELON) Condition: stable Disposition: PACU Indications for Procedure: Dino Gasca is a 57 yo male presenting for evaluation of sudden onset right thumb pain after striking it on a shelf at work. It was painful and he went to urgent care where they looked at it and placed him on pain meds. He states then a day later it became extremely swollen, erythematous, painful and draining from the dorsal aspect. It was my pleasure to have seen and examined Dino Gasca. In our visit today we have had a chance to go over subjective complaints, physical examination findings and treatments including the natural course history without intervention and various interventional options. His imaging d emonstrates soft tissue swelling no acute fracture. On physical exam, Dino Gasca demonstrates pain with motion of right thumb and DIP joint which is NV intact at this time. I have explained to the patient that this fracture needs stabilization. Based on the patients imaging, physical exam, and the rapid progression and disabling nature of her symptoms, at this time I recommend surgery in the form or a: Incision and drainage with irrigation and debridement right thumb I discussed the risk and benefits of this procedure at length with Dino Gasca. Questions were invited and answered, and the patient wishes to proceed as outlined below. Currently, I am recommendin. incision and drainage with irrigation and debridement right thumb Description of Procedure: The patient was seen and examined in the preoperative area. All preoperative protocols were followed. Informed consent was obtained risks and benefits of the procedure were discussed at length. Risks including bleeding infection damage to the surrounding tissue and risk of reoperation were discussed with the patient. Risk of anesthesia up to and including was a discussed with the patient. These are outlined in the risk reviewed. They were willing to accept these risks and all of the risks of surgery. The patient was given a weight- based dose of antibiotics in the form of VANCOMYCIN FROM THE FLOOR. The patient was seen and evaluated by the anesthesia team who deemed them fit for surgery. The site was marked, the patient was willing to proceed with the procedure. The patient was transferred to the operative suite by the Department of anesthesia. There were then drifted off to sleep by the department of anesthesia and LOCAL DIGITAL BLOCK WAS PERFORMED BY MYSELF AND SEDATION Patrizia anesthesia was used. Once adequate anesthesia had been obtained the patient was carefully transferred to the operative bed. All bony prominences were padded accordingly. SCDs were placed on the nonoperative lower extremities. Arms were well padded. right arm and hand were exposed and placed on the hand table well padded. Preoperative briefing was done with the operative team and everyone was ready for the procedure to start. The patients Right arm and hand was then prepped and draped in the normal sterile fashion. Timeout was then performed and all parties in agreement with the procedure to be performed. Right thumb digital block was done with 2% lidocain mixed with 0.25% marcaine 15 cc. Dorsal and ventral digital block was done for complete 360 block. Once block had set. Two incisions were made dorsally over the abscessed area just proximal to the and eponychium and nail plate. These were made off center to avoid the central slip. Dissection was taken down bluntly to the joint capsule which was then incised in line the joint was taken through a range of motion and purulence was noted. The joint was washed out with copious amounts of normal sterile saline. There is still exuberant amounts of swelling in this area and there is more phlegmon that had built up underneath the skin. Following this infection had tracked around the radial aspect of the thumb into the lateral portion of the thumb radial portion thumb and so a felon-type incision was made this yielded high amounts of purulence in this area was broken up using a statin and curettes. We then copiously irrigated this will sterile saline. Once the debridement and irrigation and completed simple nylon stitches were placed loosely to approximate the wounds. Silastic drains were then placed. Wounds were then cleaned and dressed sterilely with Adaptic 4 x 4's Kerlix and an Julio wrap. The patient was then transferred back to their hospital bed. There were awakened by department of anesthesia having tolerated the procedure very well with no complications. The patient was then transported to the postoperative care unit in stable condition.
--- NOTE | 2023-05-30 10:32 | P.DS ---
Providers Date of admission: 05/25/23 11:29 Expected date of discharge: 05/26/23 Attending physician: Irvin Palm MD Consults: 05/21/23 13:51 Consult Physician Urgent Consulting Provider: Michael Londono Consult Reason/Comments: Cellulitis right thumb Do you want consulting provider notified?: Yes Consult Physician Urgent Consulting Provider: Colby Rowland Consult Reason/Comments: Cellulitis of right thumb Do you want consulting provider notified?: Yes Primary care physician: Stated None Hospital Course: Final diagnosis Right thumb cellulitis, with underlying abscess status post incision and drainage with orthopedics Of outpatient treatment Elevated inflammatory markers secondary to above Recent history of head trauma History of Sarcoidosis Obesity with a BMI of 32.3 GI prophylaxis DVT prophylaxis Full code Discharge disposition Patient is being discharged in a stable condition with guarded prognosis to home. Patient will follow-up with primary care provider as well as orthopedics and infectious disease in the outpatient setting upon discharge. Patient is to continue with oral antibiotics in the form of Keflex with close outpatient follow-up and continued wound care. Patient to follow-up with infectious disease as scheduled. Total time taken is greater than 35 minutes. Hospital course This is a 57-year-old male who was recently admitted after failure of outpatient treatment for right thumb cellulitis with a laceration at home. Patient originally went to an urgent care and was given instructions to follow-up with primary care provider. Patient then evaluated at the emergency department started on antibiotics and sent home and continued to have progressive worsening and increased swelling of the thumb and was readmitted for failure of outpatient treatment. Patient seen and evaluated by infectious disease maintained on IV antibiotics along with orthopedics and underwent incision and drainage. Sutures have been removed by orthopedics and instructed to continue with wound care and Hibiclens washes 3 times daily and gently milking the area for any further drainage. Encourage the patient to elevate the right hand while at rest and meticulous hygiene and hand hygiene. Patient has been cleared by consultations for discharge today and will continue on oral Keflex on discharge. Please refer to other consultation notes for further HPI. Currently no reports of chest pain, shortness of breath, or palpitations. Patient is afebrile. No reports of nausea or vomiting and patient is tolerating diet. Patient will be discharged home today. Physical exam: Gen: This is a 57-year-old male who was awake, alert and oriented 3, well- developed, well-nourished, obese HEENT: Head is atraumatic, normocephalic. Pupils equal, round. Sclerae is anicteric. NECK: Supple. No JVD. No lymphadenopathy. No thyromegaly. LUNGS: Clear to auscultation. No wheezes or rhonchi. No intercostal retractions. HEART: Regular rate and rhythm. No murmur. ABDOMEN: Soft. Bowel sounds are present. No masses. No tenderness. EXTREMITIES: No pedal edema. No calf tenderness. Right thumb with significant swelling and minimal redness showing improvements and swelling and more dexterity able to bend at the knuckle with open wound with recent suture removal. No purulent drainage noted on exam. NEUROLOGICAL: Patient is awake, alert and oriented x3. Cranial nerves 2 through 12 are grossly intact. Please refer to medication reconciliation sheet for a list of medications. The impression and plan of care has been dictated by Iram Zuniga, Nurse Practitioner as directed. Dr. Martínez MD I have performed a history and examination and MDM of this patient, discussed the same with the dictator, and agree with the dictator's assessment and plan as written ,documented as a scribe. Based on total visit time, I have performed more than 50% of the visit. Patient Condition at Discharge: Good Plan - Discharge Summary Discharge Rx Participant: No New Discharge Prescriptions: New Acetaminophen Tab [Tylenol] 650 mg PO Q6HR PRN tab PRN Reason: Mild Pain Or Fever > 100.5 Cephalexin [Keflex] 500 mg PO Q6HR 10 Days #40 cap HYDROcodone/APAP 5-325MG [Fidelity 5-325] 1 tab PO Q6HR PRN #21 tab PRN Reason: Pain Continue Glucos Sul 2Kcl/MSM/Chond/C/Mn [Glucosamine Chondroitin Cap] 1 cap PO DAILY Ibuprofen [Motrin] 800 mg PO Q8H PRN PRN Reason: Pain Vitamin D3(Unknown Dose) 1 tab PO DAILY Vitamin C(Unknown Dose) 1 tab PO DAILY Discontinued Cephalexin [Keflex] 500 mg PO Q6HR 7 Days #28 cap Discharge Medication List Glucos Sul 2Kcl/MSM/Chond/C/Mn [Glucosamine Chondroitin Cap] 1 cap PO DAILY 01/06/21 [History] Ibuprofen [Motrin] 800 mg PO Q8H PRN 05/21/23 [History] Vitamin C(Unknown Dose) 1 tab PO DAILY 05/21/23 [History] Vitamin D3(Unknown Dose) 1 tab PO DAILY 05/21/23 [History] Cephalexin [Keflex] 500 mg PO Q6HR 10 Days #40 cap 05/25/23 [Rx] Acetaminophen Tab [Tylenol] 650 mg PO Q6HR PRN tab 05/26/23 [Rx] HYDROcodone/APAP 5-325MG [Fidelity 5-325] 1 tab PO Q6HR PRN #21 tab 05/26/23 [Rx] Follow up Appointment(s)/Referral(s): Rupa Gray MD [STAFF PHYSICIAN] - 1 Week Michael Londono DO [Doctor of Osteopathic Medicine] - 1 Week Colby Rowland MD [STAFF PHYSICIAN] - 06/01/23 3:45 pm Patient Instructions/Handouts: Cellulitis (GEN) Activity/Diet/Wound Care/Special Instructions: 1. perforfm hibiclens soaks three times per day 15 mins at a time 2. keep incision clean, dry, intact 3. milk thumb 4. pain meds as needed 5. follow up in office with Dr. Londono 6. contact [facility] at: [phone] for any questions Discharge Disposition: HOME SELF-CARE
== END 2023-05-26 12:47 | disposition home or self-care (01) | DRG 580 ==
LOC: EC 10:34 → 6NMEDSUR 13:52 → OBSVTOIN 05-25 11:29
PROVIDERS: ADMIT Internal Medicine; ATTEND Internal Medicine
PROC: 0PBR0ZZ Excision of Right Thumb Phalanx, Open Approach (ICD-10-PCS; principal; 2023-05-26)
DX: L03.011 Cellulitis of right finger (principal); L02.511 Cutaneous abscess of right hand; Z59.00 Homelessness unspecified; J44.9 Chronic obstructive pulmonary disease, unspecified; D86.9 Sarcoidosis, unspecified; B95.4 Other streptococcus as the cause of diseases classified elsewhere; Z68.32 Body mass index [BMI] 32.0-32.9, adult; Z87.828 Personal history of other (healed) physical injury and trauma; E66.9 Obesity, unspecified
CPT/HCPCS: 36415; 80048; 80053; 80202; 82565; 83605; 85025; 85652; 86140; 87040; 87070; 87075; 87205; 96365; 96366; 96367; 96375; 99285

== ENCOUNTER 2023-06-12 12:26 | Day surgery (SDC) | payer BC | END 2023-06-12 13:07 | disposition home or self-care (01) | LOC: CATHCVL 12:26 | PROVIDERS: ATTEND Registered Nurse | DX: L03.011 Cellulitis of right finger (principal); Z88.6 Allergy status to analgesic agent | CPT/HCPCS: 36410; 76937; C1751 ==

== ENCOUNTER 2023-06-18 09:43 | Day surgery (SDC) | payer BC ==
--- NOTE | 2023-06-17 22:23 | P.HPOR ---
History of Present Illness H&P Date: 06/17/23 Subjective: This is a 57 year old male that presents today for follow up evaluation regarding a right thumb infection that began one month prior which started when he was drilling a hole in a car door and punctured his thumb. He underwent thumb I&D for septic arthritis and abscess with Dr. Londono on 05/22/23 and has been on Doxycycline and Augmentin since his discharge. He notes some improvement in the overall appearance of the thumb since discharge but it remains swollen and has 2 sites that are still open and draining purulent material intermittently. He saw Dr. Rowland of infections disease last week and now has a PICC line. He states the thumb is minimally tender and has been working on range of motion. Physical Examination: RUE: AIN/PIN/Radial/Ulnar/Median motor intact. Radial/Ulnar/Median SILT. 2+/4 Radial/Ulnar pulses palpated. 5/5 APB, 5/5 FDI. small pin size. Holes on the radial and ulnar borders of the thumb with serosanguineous and slightly purulent material present. Nontender palpation over volar thumb pulp or dorsal skin overlying the thumb IP joint. Patient is able to flex and extend the thumb IP joint without pain. Nontender to palpation along the flexor tendon sheath. Imaging: X-Rays of the right thumb two view reviewed from prior office visit demonstrate advanced degenerative changes at the thumb IP joint. There is some lucency on the ulnar condyle of the thumb proximal phalanx. 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 Plan: Diagnosis and treatment options were discussed with the patient. He has signs consistent with osteomyelitis with lucency of the distal portion of the proximal phalanx with associated draining sinus tract. He wishes to proceed with right thumb arthrotomy, incision and debridement of skin and bone for his right thumb osteomyelitis. Risks and benefits of surgery including bleeding, infection, damage to surrounding tissue, need for further surgery, residual numbness were discussed and the patient wished to go forward with surgery. The patient was agreeable with this plan. -Adryan Bynum DO Orthopedic Hand/Upper Extremity Surgeon Past Medical History Past Medical History: Respiratory Disorder, Skin Disorder Additional Past Medical History / Comment(s): Cellulitis R thumb, sacroidosis History of Any Multi-Drug Resistant Organisms: None Reported Past Surgical History: No Surgical Hx Reported Additional Past Surgical History / Comment(s): lung biopsy, lasik eye surgery Past Anesthesia/Blood Transfusion Reactions: No Reported Reaction Smoking Status: Never smoker - Past Family History Father Family Medical History: Cancer Additional Family Medical History / Comment(s): liver cancer Medications and Allergies Home Medications Medication Instructions Recorded Confirmed Type Glucos Sul 2Kcl/MSM/Chond/C/Mn 1 cap PO QAM 01/06/21 06/17/23 History [Glucosamine Chondroitin Cap] Ascorbic Acid [Vitamin C] 4,000 mg PO QAM 06/17/23 06/17/23 History Cholecalciferol (Vitamin D3) 200 mg PO QAM 06/17/23 06/17/23 History [Vitamin D3 (50 Mcg = 2000 Iu) Chew Tab] Tumeric 1,000 mg PO QAM 06/17/23 06/17/23 History cefTRIAXone [Rocephin] 2 gm IV DAILY 06/17/23 06/17/23 History metroNIDAZOLE 500 mg PO TID 06/17/23 06/17/23 History Allergies Allergy/AdvReac Type Severity Reaction Status Date / Time aspirin Allergy Rash/Hives Verified 06/17/23 10:17 Physical Examination Osteopathic Statement: *. No significant issues noted on an osteopathic structural exam other than those noted in the History and Physical/Consult.
[~2023-06-18 09:43] MED LIST: DEXAMETHASONE SOD PHOSPHATE 4 MG/ML 1 ML VIAL IV ONE; HYDROmorphone 0.5 MG/0.5 ML SYRINGE IVP PRN; LACTATED RINGERS 1,000 ML IV SCH; ONDANSETRON 4 MG/2 ML VIAL IVP ONE; Pre Op ABX Message 1 EACH MISC MISCELLANE ONE
[2023-06-18] MEDS ORDERED: MIDAZOLAM 2 MG/2 ML VIAL ONE (11:25)
[2023-06-18] MEDS ORDERED: fentaNYL (PF) 50 MCG/ML 2 ML AMP ONE (11:25)
[2023-06-18] MEDS ORDERED: LIDOCAINE 1% INJ 10MG/ML (20 ML MDV) ONE (11:25)
[2023-06-18] MEDS ORDERED: PROPOFOL 10 MG/ML 20 ML VIAL IV ONE (11:25)
[2023-06-18] MEDS ORDERED: HYDROmorphone (PF) 1 MG/ML ONE (11:25)
[2023-06-18] MEDS ORDERED: BUPIVACAINE (PF) 0.5% 30 ML VIAL SQ ONE (11:56)
[2023-06-18 12:54] VITALS: TEMP 97.9
--- NOTE | 2023-06-18 13:35 | P.OP ---
Date of Procedure: 06/18/23 Preoperative Diagnosis: Right thumb osteomyelitis Postoperative Diagnosis: Right thumb osteomyelitis Procedure(s) Performed: 1.) Right thumb incision and debridement of non viable skin, fat, tendon and bone with scalpel. Anesthesia: JUAN CARLOS Surgeon: Adryan Bynum Auto Research Engineer #1: Frank Rasheed Estimated Blood Loss (ml): 5 Pathology: none sent (Right thumb superficial culture, Right thumb proximal phalanx bone.) Condition: stable Disposition: PACU Description of Procedure: This is a 57 year old male who presents today for a right thumb I&D for osteomyelitis. Risks and benefits of surgery were discussed with the patient including bleeding, damage to surrounding tissue, infection, need for further surgery as well as risks of anesthesia including pulmonary embolism and even and the patient wished to proceed with surgical intervention. The patient was seen in the pre-operative area by myself. Consent and H&P were completed and updated. The correct extremity was marked in the pre-operative area by myself and all other questions were answered. Operative Narrative: The patient was brought to the operating room by the department of anesthesia. They remained on the portable stretcher and a rolling hand table was brought to the side of the operative extremity. Pre-operative time out was performed indicating the correct patient, procedure and laterality. All in the room agreed. Pre-operative antibiotics were given, patient was on ceftriaxone through a PICC line and this was delivered during the surgery.. The patient was then drifted off to sleep by the department of anesthesia. A nonsterile tourniquet was then applied to the operative extremity and the right upper extremity was then prepped and draped in normal sterile fashion. The operative extremity was elevated to gravity and the tourniquet was inflated to 250mmHg. H-type incision was made overlying the dorsal aspect of the thumb IP joint with 15 blade scalpel. Sharp dissection was taken down to the level of the terminal extensor tendon which was found to be intact but encased with phlegmon. This was sharply excised with a 15 blade scalpel. Blunt dissection was taken down through the radial and ulnar hai-articular gutters at the base of the sinus tracts and culture swab was inserted and sent for pathology. The radial and ulnar boarders of the terminal extensor tendon were identified and sharp dissection was taken down to the thumb IP joint which was filled with fibrous and purulent tinged phlegmon in the joint. There were no identifiable pockets of pus or purulence. The joint had little remaining cartilage left and the ulnar condyle of the proximal phalanx was very soft and dusky. This non viable bone was removed with curette and rongeur and sent for pathology. Thorough debridement was then performed of non viable fat and a small radial portion of the extensor tendon was starting to erode away, this non viable tissue was excised with 15 blade scalpel. There was over 95% of the terminal extensor tendon width still intact. The wound was the irrigated with sterile saline and X-ray confirmed removal of lytic appearing bone. There was extensive bone loss of the articular surface of the ulnar 1/3 of the IP joint. The wound was then closed with 3-0 nylon suture. Digital block was performed with 10cc's of 0.5% Bupivicaine. Soft dressing with adaptic, 4x4's cast padding and naa wrap was applied. Tourniquet was let down and the thumb tip had immediate perfusion. Frank Rasheed was present for the case to assist manipulation of the finger and protection of the tendon during surgery. The patient was then woken by the department of anesthesia and transferred to PACU in stable condition. Adryan Bynum D.O. Orthopedic Hand/Upper Extremity Surgeon
[2023-06-18 13:36] VITALS: RESP 20
[2023-06-18 14:00] VITALS: BP 142/83; PULSE 73
== END 2023-06-18 13:54 | disposition home or self-care (01) ==
LOC: OR 09:43
PROVIDERS: ATTEND Orthopaedic Surgery Hand Surgery
DX: M86.8X4 Other osteomyelitis, hand (principal); Z80.0 Family history of malignant neoplasm of digestive organs; Z79.899 Other long term (current) drug therapy; Z88.8 Allergy status to other drugs, medicaments and biological substances
CPT/HCPCS: 87070; 87205; 87075; 26460; J2250; J1100; J2405; J0696; J2001; J3010; J1170; J2704; J0665

== ENCOUNTER 2024-03-28 14:08 | Emergency (ER) | payer BC ==
[2024-03-28] MEDS ORDERED: FLUORESCEIN STRIPS 1 MG STRIP ONE (15:56)
[2024-03-28] MEDS ORDERED: PROPARACAINE 0.5% OPHTH DROPS 15 ML BTL ONE (15:56)
[2024-03-28] MEDS ORDERED: CIPROFLOXACIN 0.3% OPHTH SOLN 5 ML BTL ONE (17:12)
== END 2024-03-28 17:13 | disposition home or self-care (01) ==
LOC: EC 14:08
DX: T15.01XA Foreign body in cornea, right eye, initial encounter (principal)
CPT/HCPCS: 65205; 99283

== ENCOUNTER 2024-12-27 10:25 | Day surgery (SDC) | payer BC ==
[2024-12-26 09:21] VITALS: BMI 32.1
[~2024-12-27 10:25] MED LIST changes: -DEXAMETHASONE SOD PHOSPHATE 4 MG/ML 1 ML VIAL IV ONE; -HYDROmorphone 0.5 MG/0.5 ML SYRINGE IVP PRN; -LACTATED RINGERS 1,000 ML IV SCH; +LIDOCAINE 1% (10MG/ML) FOR IV START INTRADERMA PRN; -ONDANSETRON 4 MG/2 ML VIAL IVP ONE; -Pre Op ABX Message 1 EACH MISC MISCELLANE ONE
[2024-12-27] MEDS: LACTATED RINGERS 1,000 ML IV SCH (10:52)
[2024-12-27 10:54] VITALS: TEMP 97.3
[2024-12-27] MEDS: IV FLUID CONTINUATION 1,000 ML IV ONE (10:57)
[2024-12-27] MEDS ORDERED: PROPOFOL 10 MG/ML 20 ML VIAL IV ONE (11:26)
--- NOTE | 2024-12-27 11:32 | P.GSHP ---
History of Present Illness H&P Date: 12/27/24 Chief Complaint: Colon cancer screening 59-year-old male here for colonoscopy. He has not had 1 previously. No bowel complaints. No family history of colon cancer. Past Medical History Past Medical History: Respiratory Disorder, Skin Disorder Additional Past Medical History / Comment(s): Cellulitis R thumb, sacroidosis History of Any Multi-Drug Resistant Organisms: None Reported Past Surgical History: No Surgical Hx Reported Additional Past Surgical History / Comment(s): lung biopsy, lasik eye surgery, right thumb Past Anesthesia/Blood Transfusion Reactions: No Reported Reaction Additional Past Anesthesia/Blood Transfusion Reaction / Comment(s): no blood transfusion Smoking Status: Never smoker - Past Family History Father Family Medical History: Cancer Additional Family Medical History / Comment(s): liver cancer Sister(s) Family Medical History: Cancer Additional Family Medical History / Comment(s): melanoma Medications and Allergies Allergies Allergy/AdvReac Type Severity Reaction Status Date / Time aspirin Allergy Rash/Hives Verified 12/27/24 10:52 Surgical - Exam Vital Signs Temp Pulse Resp BP Pulse Ox 97.3 F L 85 16 135/84 96 12/27/24 10:53 12/27/24 10:53 12/27/24 10:53 12/27/24 10:53 12/27/24 10:53 Physical exam: General: Well-developed, well-nourished HEENT: Normocephalic, sclerae nonicteric Abdomen: Nontender, nondistended Extremities: No edema Neuro: Alert and oriented Assessment and Plan (1) Colon cancer screening Narrative/Plan: Will proceed with colonoscopy at this time Current Visit: Yes Status: Acute Code(s): Z12.11 - ENCOUNTER FOR SCREENING FOR MALIGNANT NEOPLASM OF COLON SNOMED Code(s): 143201871
--- NOTE | 2024-12-27 11:40 | P.PCN ---
Date of Procedure: 12/27/24 Procedure(s) Performed: PREOPERATIVE DIAGNOSIS: Colon cancer screening POSTOPERATIVE DIAGNOSIS: Normal exam PROCEDURE: Colonoscopy ANESTHESIA: MAC SURGEON: Suresh Kim M.D. SPECIMENS: None ENDOSCOPIC PROCEDURE: The patient was placed on the endoscopy table in the left decubitus position. The Olympus colonoscope was inserted into the anus and passed under direct visualization to the base of the cecum. The appendiceal orifice was visualized. From that point the scope was slowly withdrawn inspecti ng all surfaces carefully. There were no neoplastic inflammatory or polypoid lesions throughout the cecum, ascending, transverse, descending, sigmoid and rectum. There was no visible diverticulosis noted. Digital rectal examination was normal. The patient was taken to the recovery room in stable condition per anesthesia guidelines. RECOMMENDATIONS: Resume diet. Repeat colonoscopy 10 years.
[2024-12-27 12:03] VITALS: BP 121/78; PULSE 68; RESP 16
== END 2024-12-27 12:13 | disposition home or self-care (01) ==
LOC: ORWHC2ENDO 10:25
PROVIDERS: ATTEND Surgery
DX: Z12.11 Encounter for screening for malignant neoplasm of colon (principal); Z88.4 Allergy status to anesthetic agent
CPT/HCPCS: 45378; J2704